=== PATIENT | female | born 1955 | race Caucasian/White ===

== ENCOUNTER → 2018-05-02 10:09 | Outpatient (CLI) | payer MEDICARE, SELFPAY ==
--- NOTE | 2018-05-02 10:33 | MRI_ITS ---
STUDY: MRI BRAIN WITH AND WITHOUT CONTRAST REASON FOR EXAM: Female, 63 years old. Dizziness, headaches and blacked out 4 weeks ago. TECHNIQUE: Standardized multiplanar fat and water weighted pulse sequences were obtained. 6 ml of Gadavist contrast material was administered intravenously for the contrast portion of the examination. COMPARISON: CTA head 06/08/2010. FINDINGS: No restricted diffusion to suspect acute or subacute ischemic infarct. Prominent converging intramedullary veins in the left cerebellar hemisphere is developmental venous anomaly. They ultimately drain into the left superior cerebellar vein. Normal size of the ventricles and extra-axial spaces for the patient's age. Additional subcortical white matter T2 FLAIR hyperintensity foci in the left subinsular white matter and above the left lentiform nucleus. They are nonspecific and are presumably secondary to microvascular disease. Normal bilateral basal ganglia. Normal thalami. There is no extra-axial fluid accumulation. Normal flow voids within the major intracranial circulation suggesting patency by spin echo criteria. Normal venous enhancement. There is no enhancing intra-axial or extra-axial abnormality. Normal sella turcica, pituitary gland, infundibular stalk, optic chiasm and hypothalamus. Normal tectal plate and pineal gland. Normal midbrain, melony and medulla. Normal cerebellum. Normal basal cisterns. Normal bilateral temporal bones. Normal bilateral internal auditory canals. No demonstrated orbital abnormality, within the constraints of a routine brain study. Normal visualized paranasal sinuses. Normal calvarium and skull base. Normal visualized soft tissue structures. Normal visualized upper cervical spine. MRI/Brain W/WO Contrast IMPRESSION: 1. 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 2. Slight increase in number of nonspecific white matter T2 FLAIR hyperintensity foci in the left subinsular white matter and above the left lentiform nucleus. They are presumably secondary to microvascular disease. 3. No MRI evidence of acute or subacute ischemic infarct or acute intracranial abnormality. Electronically Signed: Brayden Negron MD at 14:57 EDT , Service support ,
[2018-05-02 11:16] LABS: CREATININE FINGERSTICK 0.6 mg/dL (0.55-1.02); EGFR FINGERSTICK > 60.0000 mL/min (>60)
== END ==
DX: R26.89 Other abnormalities of gait and mobility (principal)
CPT/HCPCS: 70553; A9585

== ENCOUNTER 2018-05-03 14:21 | Emergency (ER) | payer MEDICARE, SELFPAY ==
[2018-05-03 14:22] VITALS: BP 141/75; PULSE 79; RESP 17; TEMP 37.2; O2SAT 98; BMI 22.6
[2018-05-03 14:30] VITALS: BP 140/75; PULSE 80; RESP 18; O2SAT 97; O2SAT 98
--- NOTE | 2018-05-03 14:43 | EKG12_ITS ---
Test Reason : SOB Blood Pressure : / mmHG Vent. Rate : 070 BPM Atrial Rate : 070 BPM P-R Int : 148 ms QRS Dur : 090 ms QT Int : 404 ms P-R-T Axes : 083 060 060 degrees QTc Int : 436 ms Normal sinus rhythm Septal OK, age undetermined, cannot be excluded Confirmed by SONY THORPE, SAM ([id number]), supervising film or videotape editor TYESHA AVALOS ([id number]) on 05/07/2018 2:47:29 PM Referred By: NEAL Confirmed By:SAM CARDOZA MD
--- NOTE | 2018-05-03 14:44 | RAD_ITS ---
STUDY: X-RAY CHEST REASON FOR EXAM: Female, 63 years old. 3 week history of shortness of breath and generalized illness. TECHNIQUE: AP and lateral views of the chest. COMPARISON: Comparison is made with prior study dated June 08, 2010. FINDINGS: Hyperinflation. Increased bronchovascular markings in the upper lobes suggestive of emphysematous changes. There is no demonstrated pleural abnormality. Normal size heart. Normal mediastinum and linnette. Normal visualized pulmonary arteries. Normal visualized aortic arch and descending thoracic aorta. There is demineralization of the osseous structures. Normal visualized ribs, clavicles, and shoulders. There is no demonstrated abnormality of the visualized soft tissue structures of the upper abdomen. RAD/Chest PA and Lateral IMPRESSION: Hyperinflation. No acute abnormality is seen. Electronically Signed: August Gentile MD at 15:43 EDT Tel [phone], Service support ,
--- NOTE | 2018-05-03 14:48 | ED.VISSUMM ---
- ER Visit Summary Date of Service: 05/03/18 Chief Complaint: Shortness of breath History of Present Illness: The patient is a 63 F history of prior stroke. Patient is a long-term smoker. States she has had a chronic cough for 3 weeks. Of greenish sputum. Chest hurts with coughing. She denies any history of DVT or PE. She denies any calf pain or swelling. She denies any bang hemoptysis. She has had a subjective fever cough and congestion. She says she coughs so much at times she will throw up afterwards. She denies any melena. Physical Examination: Older female vital signs are stable. She is afebrile. She does not look septic or toxic. Her pulse ox is 90% on room air no hypoxia. H EENT exam unremarkable. Posterior pharynx moist and pink. No erythema or exudate. No stridor or drooling. Neck nontender. No lymphadenopathy. No JVD. Lungs coarse breath sounds. Dry hacking cough. Prolonged expiratory phase. A few scattered wheezes. No rales nor rhonchi. Heart regular rhythm rate about 80 no murmur. Abdomen soft nontender. She is moving all 4 extremities. The neurovascular intact. Calves are nontender without edema or cords. Neurologically she is awake and alert with no focal motor deficits. Back nontender. Test Results: Chest x-ray shows chronic changes no acute process. Normal cardiac silhouette and mediastinum. Read by myself and the radiologist. EKG sinus rhythm a rate of 70 no CBC normal white count of 9. Hemoglobin 15. Electrolytes normal. Gap is 6. Troponin normal. Emergency Department Course and Treatment: Older female with chronic cough and shortness of breath. She will receive aerosols and IV Solu-Medrol. Patient is doing somewhat better after the aerosols and Solu-Medrol. I think this is underlying respiratory infection with more than likely new onset COPD. Patient is a long-term smoker. Has never been diagnosed with any underlying lung disease. Treatment Plan: 40 mg of prednisone for the next 7 days. Proventil inhaler. Follow-up with Dr. Augustine or Dr. Rolon of pulmonology. Disposition: Discharge Impression: Acute dyspnea secondary to bronchitis and bronchospasm Tobacco abuse with suspected underlying COPD This note was generated with [employer] software. It may contain incorrect words, spelling, and punctuation that were not noted in review of the chart prior to signing ED Disposition - Plan for ED Patient: Chief Complaint: Shortness of Breath Referrals: Angel Perez MD [Primary Care Provider] -
[2018-05-03] MEDS: Ipratropium/Albuterol Sulfate 3 ML AMPUL.NEB INHALATION (15:02)
[2018-05-03] MEDS: Albuterol 2.5 MG/3 ML VIAL.NEB. INHALATION (15:02)
[2018-05-03 15:10] VITALS: PULSE 92; RESP 26
[2018-05-03] MEDS: MethylPREDNISolone 125 MG/2 ML Vial IV (15:18)
[2018-05-03 15:29] LABS: Absolute Lymphocyte Count 3.13 X10^3/ul (0.83-4.51); Absolute Neutrophil Count 5.1 X10^3/uL (2.0-7.7); Basophil# 0.02 X10^3/uL; Basophil% 0.2 % (0-1); Eosinophil# 0.09 X10^3/uL; Lymphocyte # 3.13 X10^3/ul (4.0); Lymphocyte % 34.9 % (19-41); Mean Corp Hgb Conc 34.1 g/gl (32-36); Mean Corpuscular Hgb 30.3 pg (27.0-32.0); Mean Corpuscular Volume 88.9 fL (81-99); Mean Platelet Vol. 9.2 fl (6.2-12.0); Monocyte# 0.64 X10^3/uL; Monocyte% 7.1 % (0-10); Neutrophil # 5.06 X10^3/uL (2.7-7.7); Neutrophil % 56.5 % (47-70); Platelet Count 237 K/mm3 (150-450); RBC Distribution Width CV 12.3 % (11.6-14.6); RBC Distribution Width SD 39.2 fl (35.1-43.9); Red Blood Count 4.95 M/mm3 (4.2-5.4)
[2018-05-03 15:37] LABS: POSITIVE COUNT NO; POSITIVE DIFFERENTIAL NO; POSITIVE MORPHOLOGY NO
[2018-05-03 15:50] LABS: Anion Gap 6 (5-15); BUN 11 mg/dL (7-18); BUN/Creat Ratio 11.9 RATIO (10-20); Calcium,Total 9.2 mg/dL (8.5-10.1); Chloride 105 mmol/L (98-107); Creatinine, Serum 0.92 mg/dL (0.55-1.02); EST Glomerular Filtration Rate 65 mL/min (>60); Est Glom Filt Rate - Afr Amer 78 mL/min (>60); Estimated Creatinine Clearance 52.64 ml/min; Glucose 89 mg/dL (74-106); Potassium 3.9 mmol/L (3.5-5.1); Sodium Level 138 mmol/L (136-145)
--- NOTE | 2018-05-03 15:58 | ED.DEP ---
ED Disposition - Plan for ED Patient: Disposition: Home or Assisted Living Chief Complaint: Shortness of Breath Instructions: ED Upper Resp Infec Abx Tx, ED COPD Flare Prescriptions: Albuterol Sulfate [Proventil Hfa] 6.7 gm IH Q2H PRN PRN 7 Days #1 hfa.[email or web address] PRN Reason: Bronchospasm Azithromycin [Zithromax Z-Maico] 250 mg PO UD #1 box Prednisone [Deltasone] 40 mg PO DAILY 7 Days #7 tab Referrals: Angel Perez MD [Primary Care Provider] - As Needed Aguila Augustine MD [STAFF PHYSICIAN] - As soon as possible Additional Instructions: 1-2 puffs on your inhaler every 2-4 hours as needed for wheezing. Prednisone 40 mg a day till gone. Zithromax Z-Maico for antibiotic. Call and follow-up with a resistance brazer. Return to the ER if you are feeling worse. Your blood work, EKG and chest x-ray today were unremarkable. The chest x-ray shows chronic changes from smoking but no pneumonia. Her blood counts were normal.
--- NOTE | 2018-05-03 16:02 | DCINST.ED_ITS ---
ED Disposition - Plan for ED Patient: Disposition: Home or Assisted Living Chief Complaint: Shortness of Breath Instructions: ED Upper Resp Infec Abx Tx, ED COPD Flare Prescriptions: Albuterol Sulfate [Proventil Hfa] 6.7 gm IH Q2H PRN PRN 7 Days #1 hfa.[email or web address] PRN Reason: Bronchospasm Azithromycin [Zithromax Z-Maico] 250 mg PO UD #1 box Prednisone [Deltasone] 40 mg PO DAILY 7 Days #7 tab Referrals: Angel Perez MD [Primary Care Provider] - As Needed Aguila Augustine MD [STAFF PHYSICIAN] - As soon as possible Additional Instructions: 1-2 puffs on your inhaler every 2-4 hours as needed for wheezing. Prednisone 40 mg a day till gone. Zithromax Z-Maico for antibiotic. Call and follow-up with a service parts driver. Return to the ER if you are feeling worse. Your blood work, EKG and chest x-ray today were unremarkable. The chest x-ray shows chronic changes from smoking but no pneumonia. Her blood counts were normal.
[2018-05-03 16:19] VITALS: BP 135/80; PULSE 85; RESP 14; O2SAT 94
--- NOTE | 2018-05-04 13:01 | CM.ED ---
ED CALLBACK: Follow-up call placed to patient. Patient's spouse answered the phone and states the patient was taking a nap at this time. He states she had to use her inhaler last night but hasn't had to do so today. He states that she is taking her antibiotic and seems better today. The patient has scheduled a f/u appt with Dr. Rolon's office for Jun.08. She has not made a f/u appt with Dr. Perez. I encouraged this to be done, especially if she feels her symptoms are not resolving. Patient's spouse is agreeable and denies any further needs or questions at this time.
== END 2018-05-03 16:23 | disposition home or self-care (01) ==
PROVIDERS: Emergency Provider Emergency Medicine
DX: J44.1 Chronic obstructive pulmonary disease with (acute) exacerbation (principal); J20.9 Acute bronchitis, unspecified; J44.0 Chronic obstructive pulmonary disease with (acute) lower respiratory infection; F17.200 Nicotine dependence, unspecified, uncomplicated; Z86.73 Personal history of transient ischemic attack (TIA), and cerebral infarction without residual deficits
CPT/HCPCS: 71046; 80048; 84484; 85025; 93005; 94640; 96374; 99284; A4216

== ENCOUNTER 2018-05-12 00:19 | Observation (INO) | payer MEDICARE, SELFPAY ==
[2018-05-12] VITALS (13 sets, daily range): BP systolic 122–150; BP diastolic 65–84; PULSE 77–102; RESP 16–22; TEMP 36.1–36.9; O2SAT 93–98; BMI 22.9; BMI 23.8
--- NOTE | 2018-05-12 00:25 | ED.RN ---
CALLED FOR EKG PER RN REQUEST, PULLED OLD EKGS FOR
--- NOTE | 2018-05-12 00:29 | ED.RN ---
DR. MORROW AT BEDSIDE. PT REFUSING TO BE SEEN AND VITALS UNABLE TO BE OBTAINED. PT REPEATEDLY SAYING MIKE TAKE ME HOME. ALERT AND ORIENTED X1.
--- NOTE | 2018-05-12 00:32 | EKG12_ITS ---
Test Reason : Blood Pressure : / mmHG Vent. Rate : 099 BPM Atrial Rate : 099 BPM P-R Int : 114 ms QRS Dur : 076 ms QT Int : 360 ms P-R-T Axes : 096 063 044 degrees QTc Int : 462 ms Normal sinus rhythm Septal infarct , age undetermined Abnormal ECG Confirmed by JOSR THORPE, STACY ([id number]), offline editor TYESHA AVALOS ([id number]) on 05/14/2018 2:58:03 PM Referred By: CRISTHIAN Confirmed By:STACY OVALLES MD
--- NOTE | 2018-05-12 00:32 | CT_ITS ---
STUDY: CT BRAIN WITHOUT CONTRAST REASON FOR EXAM: Female, 63 years old. Altered mental status RADIATION DOSAGE (If Supplied By Facility): CTDIvol = ( 44.99 ) mGy, DLP = ( 796.11 ) mGycm TECHNIQUE: Transaxial CT imaging of the brain was performed without administration of intravenous contrast material. Individualized dose optimization techniques were used for this CT. COMPARISON: June 08, 2010 FINDINGS: There is no scalp hematoma and no calvarial fractures. Physiologic calcifications in both lentiform nuclei and in the left cerebellar lobe-probably within the dentate nucleus. These were present in the prior examination. There is no acute hemorrhage or acute infarction and no intra or extra-axial tumor mass. The ventricles, basal cisterns and cortical sulci are normal with no midline shift. The orbits, paranasal sinuses and mastoid air cells are normal CT/Brain/Head without Contrast IMPRESSION: No acute findings in the brain. Electronically Signed: Horacio Ryan MD at 1:53 EDT Tel , Service support ,
[2018-05-12] MEDS: LORazepam 2 MG/ML Syringe 1 MG IV ×2 (00:39→00:47)
[2018-05-12] MEDS: 0.9% Normal Saline 1,000 ML 1000 ML IV (00:40)
[2018-05-12 00:45] LABS: Absolute Lymphocyte Count 5.24 X10^3/ul (0.83-4.51); Absolute Neutrophil Count 3.8 X10^3/uL (2.0-7.7); Basophil# 0.05 X10^3/uL; Basophil% 0.5 % (0-1); Eosinophil# 0.24 X10^3/uL; Eosinophils% 2.3 % (0-5); Hemoglobin 15.1 g/dl (12.0-15.0); Lymphocyte # 5.24 X10^3/ul (4.0); Lymphocyte % 50.9 % (19-41); Mean Corp Hgb Conc 33.6 g/gl (32-36); Mean Corpuscular Hgb 30.6 pg (27.0-32.0); Mean Corpuscular Volume 91.1 fL (81-99); Mean Platelet Vol. 9.1 fl (6.2-12.0); Monocyte# 0.81 X10^3/uL; Monocyte% 7.9 % (0-10); Neutrophil # 3.76 X10^3/uL (2.7-7.7); Neutrophil % 36.6 % (47-70); Platelet Count 244 K/mm3 (150-450); RBC Distribution Width CV 13.1 % (11.6-14.6); RBC Distribution Width SD 43.2 fl (35.1-43.9); Red Blood Count 4.94 M/mm3 (4.2-5.4); White Blood Count 10.3 K/mm3 (4.4-11.0)
--- NOTE | 2018-05-12 00:45 | RAD_ITS ---
STUDY: X-RAY CHEST REASON FOR EXAM: Female, 63 years old. Chest pain TECHNIQUE: 1 view COMPARISON: May 03, 2018 FINDINGS: The lungs are clear and expanded. There is no demonstrated pleural abnormality. Normal size heart. Normal mediastinum and linnette. Normal visualized pulmonary arteries. Normal visualized aortic arch and descending thoracic aorta. Normal visualized thoracic spine. Normal visualized ribs, clavicles, and shoulders. There is no demonstrated abnormality of the visualized soft tissue structures of the upper abdomen. RAD/Chest 1 View (Portable) IMPRESSION: Normal x-ray examination of the chest. No acute findings in the lungs Electronically Signed: Horacio Ryan MD at 1:45 EDT Tel , Service support ,
[2018-05-12 00:46] LABS: Differential Indicated SCAN CRITERIA MET; POSITIVE COUNT NO; POSITIVE DIFFERENTIAL YES; POSITIVE MORPHOLOGY YES
[2018-05-12 00:51] LABS: Bedside Glucose 100 mg/dL (70-110)
[2018-05-12 00:53] LABS: International Normalized Ratio 0.9; Prothrombin Time (Protime)PT. 11.8 SECONDS (11.7-14.9)
[2018-05-12 00:54] LABS: Partial Thromboplast Time 22.8 Seconds (24.1-36.2)
[2018-05-12 01:10] LABS: AST(SGOT) 18 U/L (15-37); Alanine Aminotransfer ALT/SGPT 32 U/L (13-56); Albumin, Serum 3.7 g/dL (3.2-5.0); Alkaline Phosphatase 119 U/L (45-117); Bilirubin, Direct 0.07 mg/dL (0.00-0.30); Globulin 3.2 g/dL (2.2-4.2); Protein, Total 6.9 g/dL (6.4-8.2)
[2018-05-12 01:12] LABS: Anion Gap 11 (5-15); BUN 9 mg/dL (7-18); BUN/Creat Ratio 14.1 RATIO (10-20); Calcium,Total 7.8 mg/dL (8.5-10.1); Chloride 109 mmol/L (98-107); Creatinine, Serum 0.64 mg/dL (0.55-1.02); EST Glomerular Filtration Rate 99 mL/min (>60); Est Glom Filt Rate - Afr Amer 120 mL/min (>60); Estimated Creatinine Clearance 78.86 ml/min; Glucose 100 mg/dL (74-106); Lipase 1666 U/L (73-393); Potassium 3.4 mmol/L (3.5-5.1); Sodium Level 146 mmol/L (136-145)
[2018-05-12 01:31] LABS: Platelet Estimate ADEQUATE (ADEQ)
[2018-05-12 01:32] LABS: Anisocytosis RARE; Macrocytosis RARE
[2018-05-12 01:55] LABS: Bacteria 0 SEEN /hpf (None Seen); Mucous, Urine 0 SEEN /hpf (<or=2+); White Blood Cells 0 SEEN /hpf (0-5)
[2018-05-12 01:57] LABS: Color, Urine Yellow (Yellow); Glucose, Dipstick Normal (Normal); Ketone-Dipstick Negative (Negative); Leukocyte Esterase-Dipstick 25 /ul (Negative); Nitrite-Dipstick Negative (Negative); Occult Blood-Urine 50 /ul (Negative); Protein-Dipstick Negative (Negative); Specific Gravity, Urine 1.015 (1.002-1.030); Urine Bilirubin Dipstick Negative (Negative); Urine Clarity Clear (Clear); Urine Urobilinogen Normal (Normal)
--- NOTE | 2018-05-12 01:59 | HP.PCM_ITS ---
Problem List (1) Acute encephalopathy Status: Acute (2) Alcohol dependence Status: Acute (3) Pancreatitis, acute Status: Acute History of Present Illness Date of Admission: 05/12/18 Chief Complaint: confusion The patient is a 63 year old F with a significant history of alcohol dependence who was brought to the emergency department because of confusion x 1 day. At the time of my evaluation patient has recently received Ativan and fentanyl and was sedated; unable to provide history. History was taken from emergency department doctor and patient . On the day of admission patient went to a [place] at a formerly [facility] patient called her that she could not find her car keys. The patient also reported that patient was having slurred speech whiles she talked on the phone. Her with the help of police found her in her car slumped over. After patient was found, patient reportedly told her that she was having chest pain. Patient was noted to be vomiting. Whiles in the car driving away from the [facility] patient was in a position. At emergency department patient was found to have severely elevated lipase; and elevated alcohol level. Reportedly her did not know that patient had drank alcohol. Her reports previous episodes of alcoholism and at one time patient was found slumped over. However her reported that he did not know the patient had resumed drinking. Acute encephalopathy likely secondary to alcoholism. Clinical monitoring CT head unremarkable Ethanol level 254 Urine drug screen unremarkable. Management as below Alcoholic dependence Will put patient on [facility] protocol for possible withdrawal. Thiamine multivitamins and folic acid ordered. Ativan per protocol. Alcoholic pancreatitis With elevated lipase, elevated alkaline phosphatase; and elevated alcohol level likely patient has alcoholic pancreatitis. Lactated Ringer's at 150 mL's per hour. Because of mild hyponatremia on admission repeat BMP ordered at 10 AM. Consider making changes to IV fluids if her sodium level increases. Lipid profile ordered. Ultrasound of liver and gallbladder ordered. Abnormal urinalysis Noted to have elevated urine occult blood; but with some RBCs seen CPK ordered Hyperlipidemia Atorvastatin continued Tobacco abuse Consider nicotine patch when patient is awake. DVT prophylaxis Subcutaneous Lovenox Past Medical History Medical History: Medical History (Last Reviewed 05/12/18 @ 04:06 by Oswaldo Kelley MD) Depression F32.9 Hypercholesterolemia E78.00 Skin cancer C44.90 Stroke I63.9 Allergies codeine Allergy (Verified 05/12/18 00:31) Shortness of breath latex Adverse Reaction (Verified 05/12/18 00:31) Rash Home Medications: Ambulatory Orders Medication Instructions Recorded Aspirin [Adult Low Dose Aspirin EC] 81 mg PO DAILY 03/26/16 Sertraline HCl [Zoloft] 50 mg PO DAILY 03/26/16 Simvastatin [Zocor] 40 mg PO QHS 03/26/16 Surgical History: Surgical History (Last Reviewed 05/12/18 @ 04:06 by Oswaldo Kelley MD) History of appendectomy Z98.890, Z90.49 Lives: Spouse/ Significant Other Smoking Status: Current every day smoker Tobacco Use: Cigarettes Alcohol: Heavy Drugs: None - *Family History Maternal Family History: Family History (Last Reviewed 05/12/18 @ 04:07 by Oswaldo Kelley MD) Sister Breast cancer Paternal Family History: Family History (Last Reviewed 05/12/18 @ 04:07 by Oswaldo Kelley MD) Sister Breast cancer Review of Systems Unable to obtain accurate/complete ROS d/t: patient sedated, family unable to provide except as mentioned in hpi VTE Information - Inpt Only VTE Present on Admission: No VTE Mechan Device Prophylaxis: None VTE Pharm Prophylaxis ordered?: Yes Patient Problems: Active and Suspected Problems (Last Updated 08/18/17 @ 09:41 by Susan Hernandez) Acute encephalopathy (Acute) Alcohol dependence (Acute) Pancreatitis, acute (Acute) - Physical Exam General: - - Sedated HEENT: Atraumatic, PERRLA, Normocephalic Neck: No Nuchal Rigidity, Trachea Midline Lungs: Clear to auscultation, Normal air movement Cardiovascular: Regular rate, No murmurs Abdomen: Bowel Sounds Present, Soft, Non Tender Extremities: No edema, Capillary Refill Less than 3 Seconds Skin: No rashes Musculoskeletal: No Muscle Wasting Lymphatic: No Cervical, Supraclavicular, or Inguinal Adenopathy Neurological: - - Patient is sedated and unablefollow commands. Psych/Mental Status: - - sedated. Vital Signs Temp Pulse Resp BP Pulse Ox 96.9 F L 102 H 22 H 128/81 H 95 05/12/18 00:20 05/12/18 00:20 05/12/18 00:20 05/12/18 00:20 05/12/18 00:41 Oxygen Delivery Method Room Air Weight: 62.5 kg Body Mass Index (BMI) 22.9 Laboratory Tests Past 24 Hrs 05/12/18 05/12/18 05/12/18 00:30 00:30 00:30 WBC 10.3 RBC 4.94 Hgb 15.1 H Hct 45.0 MCV 91.1 MCH 30.6 MCHC 33.6 RDW 13.1 RDW Differential 43.2 Plt Count 244 MPV 9.1 Immature Gran % (Auto) 1.800 H Neut % (Auto) 36.6 L Lymph % (Auto) 50.9 H Hooker % (Auto) 7.9 Eos % (Auto) 2.3 Baso % (Auto) 0.5 Absolute Neuts (auto) 3.8 Absolute Lymphs (auto) 5.24 H Total Counted Not Reportable Differential Comment SEE COMMENT Diff Path Review May foll Platelet Estimate ADEQUATE Anisocytosis RARE Macrocytosis RARE PT INR APTT Sodium 146 H Potassium 3.4 L Chloride 109 H Carbon Dioxide 26.0 Anion Gap 11 BUN 9 Creatinine 0.64 Estim Creat Clear Calc 78.86 Est GFR (MDRD) Af Amer 120 Est GFR (MDRD) Non-Af 99 BUN/Creatinine Ratio 14.1 Glucose 100 Calcium 7.8 L Total Bilirubin 0.20 Direct Bilirubin 0.07 AST 18 ALT 32 Alkaline Phosphatase 119 H Troponin I < 0.015 Total Protein 6.9 Albumin 3.7 Globulin 3.2 Lipase 1666 H Urine Color Urine Clarity Urine pH Ur Specific [place] Urine Protein Urine Glucose (UA) Urine Ketones Urine Occult Blood Urine Nitrite Urine Bilirubin Urine Urobilinogen Ur Leukocyte Esterase Urine RBC Urine WBC Ur Squamous Epith Cells Urine Bacteria Urine Mucus Urine Opiates Screen Urine Methadone Screen Ur Barbiturates Screen Ur Phencyclidine Scrn Ur Amphetamines Screen U Methamphetamin-MDMA U Benzodiazepines Scrn Urine Cocaine Screen U Cannabinoids Screen Ur Drug Screen Comment Ethyl Alcohol 05/12/18 05/12/18 05/12/18 00:30 00:30 01:50 WBC RBC Hgb Hct MCV MCH MCHC RDW RDW Differential Plt Count MPV Immature Gran % (Auto) Neut % (Auto) Lymph % (Auto) Hooker % (Auto) Eos % (Auto) Baso % (Auto) Absolute Neuts (auto) Absolute Lymphs (auto) Total Counted Differential Comment Diff Path Review Platelet Estimate Anisocytosis Macrocytosis PT 11.8 INR 0.9 APTT 22.8 L Sodium Potassium Chloride Carbon Dioxide Anion Gap BUN Creatinine Estim Creat Clear Calc Est GFR (MDRD) Af Amer Est GFR (MDRD) Non-Af BUN/Creatinine Ratio Glucose Calcium Total Bilirubin Direct Bilirubin AST ALT Alkaline Phosphatase Troponin I Total Protein Albumin Globulin Lipase Urine Color Urine Clarity Urine pH Ur Specific [place] Urine Protein Urine Glucose (UA) Urine Ketones Urine Occult Blood Urine Nitrite Urine Bilirubin Urine Urobilinogen Ur Leukocyte Esterase Urine RBC Urine WBC Ur Squamous Epith Cells Urine Bacteria Urine Mucus Urine Opiates Screen Pending Urine Methadone Screen Pending Ur Barbiturates Screen Pending Ur Phencyclidine Scrn Pending Ur Amphetamines Screen Pending U Methamphetamin-MDMA Pending U Benzodiazepines Scrn Pending Urine Cocaine Screen Pending U Cannabinoids Screen Pending Ur Drug Screen Comment Ethyl Alcohol 254.0 05/12/18 01:50 WBC RBC Hgb Hct MCV MCH MCHC RDW RDW Differential Plt Count MPV Immature Gran % (Auto) Neut % (Auto) Lymph % (Auto) Hooker % (Auto) Eos % (Auto) Baso % (Auto) Absolute Neuts (auto) Absolute Lymphs (auto) Total Counted Differential Comment Diff Path Review Platelet Estimate Anisocytosis Macrocytosis PT INR APTT Sodium Potassium Chloride Carbon Dioxide Anion Gap BUN Creatinine Estim Creat Clear Calc Est GFR (MDRD) Af Amer Est GFR (MDRD) Non-Af BUN/Creatinine Ratio Glucose Calcium Total Bilirubin Direct Bilirubin AST ALT Alkaline Phosphatase Troponin I Total Protein Albumin Globulin Lipase Urine Color Yellow Urine Clarity Clear Urine pH 5.0 Ur Specific [place] 1.015 Urine Protein Negative Urine Glucose (UA) Normal Urine Ketones Negative Urine Occult Blood 50 H Urine Nitrite Negative Urine Bilirubin Negative Urine Urobilinogen Normal Ur Leukocyte Esterase 25 H Urine RBC Pending Urine WBC Pending Ur Squamous Epith Cells Pending Urine Bacteria Pending Urine Mucus Pending Urine Opiates Screen Urine Methadone Screen Ur Barbiturates Screen Ur Phencyclidine Scrn Ur Amphetamines Screen U Methamphetamin-MDMA U Benzodiazepines Scrn Urine Cocaine Screen U Cannabinoids Screen Ur Drug Screen Comment Ethyl Alcohol POC Glucose 05/12/18 00:44 POC Glucose 100 Assessment/Plan All Active Problems (Last Updated 08/18/17 @ 09:41 by Susan Hernandez) Acute encephalopathy (Acute) Alcohol dependence (Acute) Pancreatitis, acute (Acute) The patient is a 63 year old F with a significant history of alcohol dependence who was brought to the emergency department because of confusion; vomiting, chest pain; positioning and found to have elevated ethanol level; elevated lipase and elevated alkaline phosphatase concerning for alcoholic encephalopathy; alcohol dependence and alcoholic pancreatitis. Acute encephalopathy likely secondary to alcoholism. Clinical monitoring CT head unremarkable Ethanol level 254 Urine drug screen unremarkable. Management as below Alcoholic dependence Will put patient on [facility] protocol for possible withdrawal. Thiamine multivitamins and folic acid ordered. Ativan per [facility] protocol. Alcoholic pancreatitis With elevated lipase, elevated alkaline phosphatase; and elevated alcohol level likely patient has alcoholic pancreatitis. Lactated Ringer's at 150 mL's per hour. Because of mild hyponatremia on admission repeat BMP ordered at 10 AM. Consider making changes to IV fluids if her sodium level increases. Lipid profile ordered. Ultrasound of liver and gallbladder ordered. Abnormal urinalysis Noted to have elevated urine occult blood; but with some RBCs seen CPK ordered Hyperlipidemia Atorvastatin continued Tobacco abuse Consider nicotine patch when patient is awake. DVT prophylaxis Subcutaneous Lovenox Code Visit Inpatient E&M: 26032 Init Hosp L3
[2018-05-12] MEDS: fentaNYL 100 MCG/2 ML Ampul 50 MCG IV (02:06)
[2018-05-12 02:10] LABS: Amphetamine Urine VISTA NEGATIVE (<1000 ng/mL); Barbiturate Urine VISTA NEGATIVE (< 200 ng/mL); Benzodiazepine Urine VISTA NEGATIVE (< 200 ng/mL); Cocaine Urine VISTA NEGATIVE (< 300 ng/mL); Ecstacy Urine VISTA NEGATIVE (< 500 ng/mL); Methadone Urine VISTA NEGATIVE (< 300 ng/mL); PCP Urine VISTA NEGATIVE (< 25 ng/mL); THC Urine VISTA NEGATIVE (< 50 ng/mL); Vista UDS pH Range 5
--- NOTE | 2018-05-12 02:12 | ED.VISSUMM ---
- ER Visit Summary Date of Service: 05/12/18 Chief Complaint: Altered level of consciousness History of Present Illness: The patient is a 63 F who presents by a private vehicle driven by her . He says that she called him and was acting abnormally. He went to pick her up downtown and she was complaining of abdominal pain and she had some vomiting. He said she acted like this in the past when she had a stroke, but otherwise she has been doing well. The patient has no complaints and tells me that she wants to leave. She is agitated so history is limited. Physical Examination: Afebrile and vitals unremarkable except for heart rate of 102 and a respiratory rate of 22. Patient is grabbing her abdomen and appears uncomfortable. She is agitated, saying that she wants to leave. She is not answering questions or cooperating with the exam. Her heart is tachycardic but regular. Lungs are clear. Abdomen is soft and nontender. Skin normal in color without diaphoresis or pallor. Patient does have some material at her nostrils which appears to be consistent with emesis. Test Results: EKG sinus rhythm at a rate of 99. Hemoglobin 15.1. Sodium 146, potassium 3.4, chloride 109. Alkaline phosphatase 119 and lipase 1600. INR 0.9 and PTT 22.8. Urinalysis pending. Troponin normal. Alcohol 245. Tox screen pending. Chest x-ray was normal. CT head was normal. Emergency Department Course and Treatment: Patient was seen immediately. EKG was done and she was placed on a monitor. She did require some fluids and Ativan. She responded well to this and was cooperative with testing. Evaluation indicated that she was intoxicated, and I suspect this is why she is agitated. Her lipase is elevated, causing her emesis and abdominal pain. She was treated with fentanyl. Vitals have remained stable. Hospitalist was contacted for admission. Treatment Plan: As above Disposition: Admission Impression: 1. Alcohol intoxication 2. Pancreatitis This note was generated with [place] dictation software. It may contain incorrect words, spelling, and punctuation that were not noted in review of the chart prior to signing ED Disposition - Plan for ED Patient: Chief Complaint: Chest Pain Referrals: Angel Perez MD [Primary Care Provider] -
[2018-05-12 02:24] LABS: Red Blood Cells-Urine 0-5 SEEN /hpf (0-5); Squamous Epithelial Cells - UA 0-5 SEEN /hpf (5-10); Transitional Epithelial - Ur 0 SEEN /hpf (0-5)
--- NOTE | 2018-05-12 03:10 | US_ITS ---
STUDY: ABDOMINAL ULTRASOUND - RIGHT UPPER QUADRANT REASON FOR VISIT: Female, 63 years old. Pancreatitis. TECHNIQUE: Ultrasound evaluation of the right upper quadrant was performed with real-time and static naqvi-scale imaging. TECHNICAL QUALITY: Adequate. COMPARISON: CT abdomen and pelvis March 26, 2016. FINDINGS: Liver: The liver measures 14.9 cm. There is normal echogenicity of the liver. The bile ducts are within normal limits. There is hepatic color flow. The direction of portal flow is hepatopetal. There is no demonstrated mass lesion. Gallbladder: Normal distended gallbladder. The gallbladder wall measures 2.7 mm. There are hypodensities along the gallbladder wall at the fundus that suggest mural calcifications. There is a negative sonographic Cagle's sign. There is no pericholecystic fluid. There are no gallstones. Common Bile Duct (C.B.D.): The common bile duct measures 3.8 mm. Pancreas: Normal size of the head, body and tail of the pancreas. There is borderline increased echogenicity of the pancreas. There is no demonstrated pancreatic mass or cyst. Right Kidney: Normal size of the right kidney. The right kidney measures 10.1 x 5.2 x 4.5 cm. Normal renal cortex. The right cortex measures 1.2 cm. There is no demonstrated renal mass or cyst. There is no right hydronephrosis. US/Abdomen Limited IMPRESSION: 1. Generally unremarkable visualized pancreas. 2. Possible mural calcifications of the gallbladder wall at the fundus. No gallstones or signs of acute cholecystitis. 3. The visualized liver and right kidney were unremarkable. Electronically Signed: Bony Kirkpatrick MD at 12:41 EDT , Service support ,
--- NOTE | 2018-05-12 03:11 | EKG12_ITS ---
Test Reason : ADM EKG Blood Pressure : / mmHG Vent. Rate : 085 BPM Atrial Rate : 085 BPM P-R Int : 136 ms QRS Dur : 072 ms QT Int : 376 ms P-R-T Axes : 078 063 048 degrees QTc Int : 447 ms Normal sinus rhythm Septal infarct , age undetermined Abnormal ECG When compared with ECG of 03-MAY-2018 15:00, No significant change was found Confirmed by JOSR THORPE, STACY ([id number]), purchase request editor TYESHA AVALOS ([id number]) on 05/16/2018 3:39:22 PM Referred By: SHAHEED Confirmed By:STACY OVALLES MD
[2018-05-12] MEDS: Lactated Ringers 1,000 ML 150 ML IV ×2 (04:00→12:11)
[2018-05-12] MEDS: 0.9% NaCl Peripheral Flush Adult/Peds IV ×3 (06:33→14:34)
--- NOTE | 2018-05-12 07:28 | PCM.PN.HOSP ---
Patient Problems: Active and Suspected Problems (Last Reviewed 05/12/18 @ 04:06 by Oswaldo Kelley MD) Acute encephalopathy (Acute) Alcohol dependence (Acute) Pancreatitis, acute (Acute) Subjective: Patient since admission notes doing well, denies any current abdominal discomfort with review of current presentation for acute pancreatitis with notable heavy amount of alcohol consumption with history of being sober for approximately the last 6-8 months prior to this. Patient denies any chest discomfort as upon transition with EMS she had reported chest discomfort but suspect this was the epigastric discomfort. Reviewed cholesterol with patient and decision for increase of her statin, awaiting gallbladder ultrasound but likely alcohol consumption as etiology for current acute presentation to which she noted understanding. Patient denies fevers, chills, nausea, emesis, recurrent or worsened abdominal pain, chest pain or dyspnea. Objective: Physical Examination: General: awake, alert, oriented x 3 and cooperative, seated upright in bed in no apparent distress. Skin: normal color, turgor, no icterus, cyanosis. HEENT: AT/NC, EOMI, PERRLA, improved less dry MM. Lungs: Diminished BS BL, > bases, suspect underlying COPD, no current wheezing. Heart: Regular rate and rhythm; no gallop, rub audible. Abdomen: soft, NTTP including in the epigastric region and RUQ, ND, mildly hyperactive BS. Extremities: no cyanosis, clubbing, or edema. Neurological: patient awake, alert, oriented x 3; cognitive function intact; pupils equally reactive to light and accomodation; cranial nerves II-XII grossly normal, moving all 4 extremities, no focal deficits, strength mildly globally decreased. Psychiatric: affect appears mildly flat, fatigued, no acute evidence of depressive or anxiety feelings. Vitals/I&O's: Vital Signs Temp Pulse Resp BP Pulse Ox 97.2 F L 80 20 H 130/65 H 96 05/12/18 03:10 05/12/18 03:13 05/12/18 03:10 05/12/18 03:10 05/12/18 07:05 Oxygen Flow Rate (L/min) 1 Oxygen Delivery Method Nasal Cannula Weight: 138 lb 7.205 oz Body Mass Index (BMI) 23.8 Intake and Output for Last 24 Hours 05/10/18 05/11/18 05/12/18 23:59 23:59 23:59 Intake Total 572 / 572 Balance 572 / 572 Laboratory Results 05/12/18 00:30: Total Bilirubin 0.20, Direct Bilirubin 0.07, AST 18, ALT 32, Alkaline Phosphatase 119 H, Total Protein 6.9, Albumin 3.7, Globulin 3.2 05/12/18 00:30: WBC 10.3, RBC 4.94, Hgb 15.1 H, Hct 45.0, MCV 91.1, MCH 30.6, MCHC 33.6, RDW 13.1, RDW Differential 43.2, Plt Count 244, MPV 9.1, Immature Gran % (Auto) 1.800 H, Neut % (Auto) 36.6 L, Lymph % (Auto) 50.9 H, [place] % (Auto) 7.9, Eos % (Auto) 2.3, Baso % (Auto) 0.5, Absolute Neuts (auto) 3.8, Absolute Lymphs (auto) 5.24 H, Total Counted Not Reportable, Differential Comment SEE COMMENT, Diff Path Review May foll, Platelet Estimate ADEQUATE, Anisocytosis RARE, Macrocytosis RARE 05/12/18 00:30: Sodium 146 H, Potassium 3.4 L, Chloride 109 H, Carbon Dioxide 26.0, Anion Gap 11, BUN 9, Creatinine 0.64, Estim Creat Clear Calc 78.86, Est GFR (MDRD) Af Amer 120, Est GFR (MDRD) Non-Af 99, BUN/Creatinine Ratio 14.1, Glucose 100, Calcium 7.8 L, Troponin I < 0.015, Lipase 1666 H 05/12/18 00:30: Ethyl Alcohol 254.0 05/12/18 00:30: PT 11.8, INR 0.9, APTT 22.8 L 05/12/18 00:44: POC Glucose 100 05/12/18 01:50: Urine Opiates Screen NEGATIVE, Urine Methadone Screen NEGATIVE, Ur Barbiturates Screen NEGATIVE, Ur Phencyclidine Scrn NEGATIVE, Ur Amphetamines Screen NEGATIVE, U Methamphetamin-MDMA NEGATIVE, U Benzodiazepines Scrn NEGATIVE, Urine Cocaine Screen NEGATIVE, U Cannabinoids Screen NEGATIVE, Ur Drug Screen Comment 05/12/18 01:50: Urine Color Yellow, Urine Clarity Clear, Urine pH 5.0, Ur Specific [place] 1.015, Urine Protein Negative, Urine Glucose (UA) Normal, Urine Ketones Negative, Urine Occult Blood 50 H, Urine Nitrite Negative, Urine Bilirubin Negative, Urine Urobilinogen Normal, Ur Leukocyte Esterase 25 H, Urine RBC 0-5 SEEN, Urine WBC 0 SEEN, Ur Squamous Epith Cells 0-5 SEEN, Ur Transition Epith Cell 0 SEEN, Urine Bacteria 0 SEEN, Urine Mucus 0 SEEN 05/12/18 05:25: Triglycerides Pending, Cholesterol Pending, LDL Cholesterol Pending, VLDL Cholesterol Pending, HDL Cholesterol Pending 05/12/18 05:25: Sodium Pending, Potassium Pending, Chloride Pending, Carbon Dioxide Pending, Anion Gap Pending, BUN Pending, Creatinine Pending, Est GFR (MDRD) Af Amer Pending, Est GFR (MDRD) Non-Af Pending, BUN/Creatinine Ratio Pending, Glucose Pending, Calcium Pending 05/12/18 05:25: Total Creatine Kinase Pending Current Medications Aspirin (Ecotrin) 81 mg PO DAILYCM [facility]END[facility] Atorvastatin Calcium (Lipitor) 20 mg PO QHS [facility] Bisacodyl (Dulcolax) 5 mg PO DAILY PRN PRN PRN Reason: Constipation Enoxaparin Sodium (Lovenox) 40 mg SC DAILY@1000 [facility] Folic Acid (Folic Acid) 1 mg PO DAILY@0800 [facility] Stop: 05/14/18 08:01 Lactated Ringer's () 1,000 mls @ 150 mls/hr IV .Q6H40M [facility] Stop: 05/12/18 09:49 Last Admin: 05/12/18 04:00 Dose: 150 mls/hr Influenza Virus Vaccine Quadrival (Fluarix/Fluzone) 0.5 ml IM .ONCE ONE Stop: 05/12/18 10:01 Lorazepam (Ativan) 2 mg PO Q2H PRN PRN; Protocol PRN Reason: CIWA score > 8 but <15 Lorazepam (Ativan) 2 mg IV Q2H PRN PRN; Protocol PRN Reason: CIWA score > 8 but <15 Lorazepam (Ativan) 2 mg PO UD PRN; Protocol PRN Reason: CIWA score >/=15. Lorazepam (Ativan) 2 mg IV UD PRN; Protocol PRN Reason: CIWA score >/=15. Magnesium Hydroxide (Milk Of Magnesia) 30 ml PO DAILY PRN PRN Reason: Constipation Multivitamins/Minerals (Multivitamin With Minerals) 1 tablet PO DAILYCM [facility] Ondansetron HCl (Zofran) 4 mg IV Q8H PRN PRN PRN Reason: NAUSEA Sertraline HCl (Zoloft) 50 mg PO DAILY [facility] Sodium Chloride () 5 - 30 ml IV UD PRN PRN Reason: SALINE FLUSH Last Admin: 05/12/18 06:33 Dose: 10 ml Thiamine HCl (Vitamin B1) 100 mg PO BIDCM [facility] Stop: 05/14/18 17:01 Medical Necessity - Tobacco Use Smoking Status: Current every day smoker Tobacco Use: Cigarettes Assessment/Plan All Active Problems (Last Reviewed 05/12/18 @ 04:06 by Oswaldo Kelley MD) Acute encephalopathy (Acute) Alcohol dependence (Acute) Pancreatitis, acute (Acute) The patient is a 63 y/o F w/ PMHx: HLD, Depression and Anxiety, Tobacco use, EtOH Abuse who presents to the [facility] ED on 05/12/18 with history of confusion, noted to [place], noted slurred speech, eventually found slumped over in her car. (1) Acute pancreatitis w/ abdominal pain: Admission CBC not marked appearing, CMP w/ Na 146, K 3.4, Alk phos 119, AST/ALT 18/32, Lipase 1666. Admitted to PCU for ? concurrent chest pain, maintain on IVFs, NPO, PPI, pain regimen, trend lipase, CMP. Repeat lipase 379. Will obtain RUQ US, FLP w/ TG 326, TChol 170, LDL 63, VLDL 65, HDL 42, will increase home statin. Currently EtOH consumption risk main etiology for pancreatitis. Given notable improvement in lipase, resolution of prior pain if US unremarkable will plan clears start and ADAT, possible discharge to home today. (2) EtOH Abuse: Patient prior EtOH Abuse history, sober x 6-8 months per report, heavy intake on evening prior to presentation. Will maintain on CIWA protocol, MVI, thiamine and folic acid. Mag and phos pending. UDS unremarkable per ED. EtOH level 254. (3) Hyperlipidemia: Increase statin regimen. AM FLP FLP w/ TG 326, TChol 170, LDL 63, VLDL 65, HDL 42. (4) Anxiety and Depression: Continue home sertraline regimen, very low dose at 50 mg daily, would benefit from increase to 100 mg daily and further evaluations. (5) Tobacco Abuse: Encouraged cessation, inpatient consultation per RT, NR if desired. (6) Suspected Chronic COPD: Notes usage of aerosols only PRN at home. Suspect underlying COPD. Will maintain on ATC duonebs, PRN albuterol, HOB, IS parameters. (7) DVT prophylaxis: SCD, Lovenox. Code Visit Procedures: Other Procedure - See Report - Admitted per night physician same day, Billing Code: [id number]
--- NOTE | 2018-05-12 07:37 | PN_ITS ---
Patient Problems: Active and Suspected Problems (Last Reviewed 05/12/18 @ 04:06 by Oswaldo Kelley MD) Acute encephalopathy (Acute) Alcohol dependence (Acute) Pancreatitis, acute (Acute) Subjective: Patient since admission notes doing well, denies any current abdominal discomfort with review of current presentation for acute pancreatitis with notable heavy amount of alcohol consumption with history of being sober for approximately the last 6-8 months prior to this. Patient denies any chest discomfort as upon transition with EMS she had reported chest discomfort but suspect this was the epigastric discomfort. Reviewed cholesterol with patient and decision for increase of her statin, awaiting gallbladder ultrasound but l ikely alcohol consumption as etiology for current acute presentation to which she noted understanding. Patient denies fevers, chills, nausea, emesis, recurrent or worsened abdominal pain, chest pain or dyspnea. Objective: Physical Examination: General: awake, alert, oriented x 3 and cooperative, seated upright in bed in no apparent distress. Skin: normal color, turgor, no icterus, cyanosis. HEENT: AT/NC, EOMI, PERRLA, improved less dry MM. Lungs: Diminished BS BL, > bases, suspect underlying COPD, no current wheezing. Heart: Regular rate and rhythm; no gallop, rub audible. Abdomen: soft, NTTP including in the epigastric region and RUQ, ND, mildly hyperactive BS. Extremities: no cyanosis, clubbing, or edema. Neurological: patient awake, alert, oriented x 3; cognitive function intact; pupils equally reactive to light and accomodation; cranial nerves II-XII grossly normal, moving all 4 extremities, no focal deficits, strength mildly globally decreased. Psychiatric: affect appears mildly flat, fatigued, no acute evidence of depressive or anxiety feelings. Vitals/I&O's: Vital Signs Temp Pulse Resp BP Pulse Ox 97.2 F L 80 20 H 130/65 H 96 05/12/18 03:10 05/12/18 03:13 05/12/18 03:10 05/12/18 03:10 05/12/18 07:05 Oxygen Flow Rate (L/min) 1 Oxygen Delivery Method Nasal Cannula Weight: 138 lb 7.205 oz Body Mass Index (BMI) 23.8 Intake and Output for Last 24 Hours 05/10/18 05/11/18 05/12/18 23:59 23:59 23:59 Intake Total 572 / 572 Balance 572 / 572 Laboratory Results 05/12/18 00:30: Total Bilirubin 0.20, Direct Bilirubin 0.07, AST 18, ALT 32, Alkaline Phosphatase 119 H, Total Protein 6.9, Albumin 3.7, Globulin 3.2 05/12/18 00:30: WBC 10.3, RBC 4.94, Hgb 15.1 H, Hct 45.0, MCV 91.1, MCH 30.6, MCHC 33.6, RDW 13.1, RDW Differential 43.2, Plt Count 244, MPV 9.1, Immature Gran % (Auto) 1.800 H, Neut % (Auto) 36.6 L, Lymph % (Auto) 50.9 H, [place] % (Auto) 7.9, Eos % (Auto) 2.3, Baso % (Auto) 0.5, Absolute Neuts (auto) 3.8, Absolute Lymphs (auto) 5.24 H, Total Counted Not Reportable, Differential Comment SEE COMMENT, Diff Path Review May foll, Platelet Estimate ADEQUATE, Anisocytosis RARE, Macrocytosis RARE 05/12/18 00:30: Sodium 146 H, Potassium 3.4 L, Chloride 109 H, Carbon Dioxide 26.0, Anion Gap 11, BUN 9, Creatinine 0.64, Estim Creat Clear Calc 78.86, Est GFR (MDRD) Af Amer 120, Est GFR (MDRD) Non-Af 99, BUN/Creatinine Ratio 14.1, Glucose 100, Calcium 7.8 L, Troponin I < 0.015, Lipase 1666 H 05/12/18 00:30: Ethyl Alcohol 254.0 05/12/18 00:30: PT 11.8, INR 0.9, APTT 22.8 L 05/12/18 00:44: POC Glucose 100 05/12/18 01:50: Urine Opiates Screen NEGATIVE, Urine Methadone Screen NEGATIVE, Ur Barbiturates Screen NEGATIVE, Ur Phencyclidine Scrn NEGATIVE, Ur Amphetamines Screen NEGATIVE, U Methamphetamin-MDMA NEGATIVE, U Benzodiazepines Scrn NEGATIVE, Urine Cocaine Screen NEGATIVE, U Cannabinoids Screen NEGATIVE, Ur Drug Screen Comment 05/12/18 01:50: Urine Color Yellow, Urine Clarity Clear, Urine pH 5.0, Ur Specific [place] 1.015, Urine Protein Negative, Urine Glucose (UA) Normal, Urine Ketones Negative, Urine Occult Blood 50 H, Urine Nitrite Negative, Urine Bilirubin Negative, Urine Urobilinogen Normal, Ur Leukocyte Esterase 25 H, Urine RBC 0-5 SEEN, Urine WBC 0 SEEN, Ur Squamous Epith Cells 0-5 SEEN, Ur Transition Epith Cell 0 SEEN, Urine Bacteria 0 SEEN, Urine Mucus 0 SEEN 05/12/18 05:25: Triglycerides Pending, Cholesterol Pending, LDL Cholesterol Pending, VLDL Cholesterol Pending, HDL Cholesterol Pending 05/12/18 05:25: Sodium Pending, Potassium Pending, Chloride Pending, Carbon Dioxide Pending, Anion Gap Pending, BUN Pending, Creatinine Pending, Est GFR (MDRD) Af Amer Pending, Est GFR (MDRD) Non-Af Pending, BUN/Creatinine Ratio Pending, Glucose Pending, Calcium Pending 05/12/18 05:25: Total Creatine Kinase Pending Current Medications Aspirin (Ecotrin) 81 mg PO DAILYCM [facility] Atorvastatin Calcium (Lipitor) 20 mg PO QHS [facility] Bisacodyl (Dulcolax) 5 mg PO DAILY PRN PRN PRN Reason: Constipation Enoxaparin Sodium (Lovenox) 40 mg SC DAILY@1000 [facility] Folic Acid (Folic Acid) 1 mg PO DAILY@0800 [facility] Stop: 05/14/18 08:01 Lactated Ringer's () 1,000 mls @ 150 mls/hr IV .Q6H40M [facility] Stop: 05/12/18 09:49 Last Admin: 05/12/18 04:00 Dose: 150 mls/hr Influenza Virus Vaccine Quadrival (Fluarix/Fluzone) 0.5 ml IM .ONCE ONE Stop: 05/12/18 10:01 Lorazepam (Ativan) 2 mg PO Q2H PRN PRN; Protocol PRN Reason: CIWA score > 8 but <15 Lorazepam (Ativan) 2 mg IV Q2H PRN PRN; Protocol PRN Reason: CIWA score > 8 but <15 Lorazepam (Ativan) 2 mg PO UD PRN; Protocol PRN Reason: CIWA score >/=15. Lorazepam (Ativan) 2 mg IV UD PRN; Protocol PRN Reason: CIWA score >/=15. Magnesium Hydroxide (Milk Of Magnesia) 30 ml PO DAILY PRN PRN Reason: Constipation Multivitamins/Minerals (Multivitamin With Minerals) 1 tablet PO DAILYCM [facility] Ondansetron HCl (Zofran) 4 mg IV Q8H PRN PRN PRN Reason: NAUSEA Sertraline HCl (Zoloft) 50 mg PO DAILY [facility] Sodium Chloride () 5 - 30 ml IV UD PRN PRN Reason: SALINE FLUSH Last Admin: 05/12/18 06:33 Dose: 10 ml Thiamine HCl (Vitamin B1) 100 mg PO BIDCM [facility] Stop: 05/14/18 17:01 Medical Necessity - Tobacco Use Smoking Status: Current every day smoker Tobacco Use: Cigarettes Assessment/Plan All Active Problems (Last Reviewed 05/12/18 @ 04:06 by Oswaldo Kelley MD) Acute encephalopathy (Acute) Alcohol dependence (Acute) Pancreatitis, acute (Acute) The patient is a 63 y/o F w/ PMHx: HLD, Depression and Anxiety, Tobacco use, EtOH Abuse who presents to the [facility] ED on 05/12/18 with history of confusion, noted to [place], noted slurred speech, eventually found slumped over in her car. (1) Acute pancreatitis w/ abdominal pain: Admission CBC not marked appearing, CMP w/ Na 146, K 3.4, Alk phos 119, AST/ALT 18/32, Lipase 1666. Admitted to PCU for ? concurrent chest pain, maintain on IVFs, NPO, PPI, pain regimen, trend lipase, CMP. Repeat lipase 379. Will obtain RUQ US, FLP w/ TG 326, TChol 170, LDL 63, VLDL 65, HDL 42, will increase home statin. Currently EtOH consumption risk main etiology for pancreatitis. Given notable improvement in lipase, resolution of prior pain if US unremarkable will plan clears start and ADAT, possible discharge to home today. (2) EtOH Abuse: Patient prior EtOH Abuse history, sober x 6-8 months per report, heavy intake on evening prior to presentation. Will maintain on CIWA protocol, MVI, thiamine and folic acid. Mag and phos pending. UDS unremarkable per ED. EtOH level 254. (3) Hyperlipidemia: Increase statin regimen. AM FLP FLP w/ TG 326, TChol 170, LDL 63, VLDL 65, HDL 42. (4) Anxiety and Depression: Continue home sertraline regimen, very low dose at 50 mg daily, would benefit from increase to 100 mg daily and further evaluations. (5) Tobacco Abuse: Encouraged cessation, inpatient consultation per RT, NR if desired. (6) Suspected Chronic COPD: Notes usage of aerosols only PRN at home. Suspect underlying COPD. Will maintain on ATC duonebs, PRN albuterol, HOB, IS parameters. (7) DVT prophylaxis: SCD, Lovenox. Code Visit Procedures: Other Procedure - See Report - Admitted per night physician same day, Billing Code: [id number]
[2018-05-12 07:39] LABS: Cholesterol 170 mg/dL (200); High Density Lipoprotein 42 mg/dL; Triglycerides 326 mg/dL; Very Low Density Lipoprotein 65 mg/dL (5-40)
[2018-05-12 07:45] LABS: BUN 8 mg/dL (7-18); Creatinine, Serum 0.44 mg/dL (0.55-1.02); Estimated Creatinine Clearance 110.07 ml/min; Glucose 84 mg/dL (74-106)
[2018-05-12 07:46] LABS: Anion Gap 7 (5-15); BUN/Creat Ratio 18.3 RATIO (10-20); Calcium,Total 7.2 mg/dL (8.5-10.1); Chloride 113 mmol/L (98-107); EST Glomerular Filtration Rate 154 mL/min (>60); Est Glom Filt Rate - Afr Amer 186 mL/min (>60); Sodium Level 147 mmol/L (136-145)
[2018-05-12 07:50] LABS: CPK Total, Creatine Kinase 69 U/L (26-192)
[2018-05-12 08:18] LABS: Lipase 379 U/L (73-393)
--- NOTE | 2018-05-12 08:28 | NURSING ---
Being Transported Via Bed by Mercedes GARG down to Ultrasound at this time.
--- NOTE | 2018-05-12 08:50 | CASEMGMT ---
Social Work Note SW received referral for substance abuse. SW attempted to see pt. Pt currently off floor. SW will follow up with pt as time allows later today. Norma Aleman MANAGER CARD, ASH WORKER
[2018-05-12] MEDS: Sertraline 50 MG Tablet PO (09:48)
[2018-05-12] MEDS: Aspirin E.C. 81 MG Tablet PO (09:49)
[2018-05-12] MEDS: Thiamine Hydrochloride 100 MG Tablet PO ×2 (09:49→17:58)
[2018-05-12] MEDS: Enoxaparin 40 MG/0.4 ML Syringe SC (09:57)
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
--- NOTE | 2018-05-12 11:50 | CASEMGMT ---
Social Work Assessment: Referral Date: 05/12/2018 Date of Assessment: 05/12/2018 Reason for consult: Initial assessment, substance abuse Informant: Admitting Personal Status: SW met with pt to complete initial assessment. SW introduced self and role at [facility]. Pt is alert and orientated x3. Pt states that she lives with her in a two story home with three steps to enter the home. Pt states that she was previously independent with ADLs. Pt currently on oxygen but states that she didn't wear oxygen at home. DME include a walker but pt states she doesn't use it. Pt states that her PCP is Dr. Perez and her preferred pharmacy is [facility]. Pt states that her plan is to return home at discharge and denied the need for additional help at home at this time. Substance Abuse Hx: Pt denied. Per H+P pt has significant history of alcohol dependence and was positive for alcohol use. Pt denied wanting alcohol resources. Mental Health Hx: Pt denied. Plan: Pt wishes to return home at discharge. Pt denied additional needs or concerns at this time. Norma Aleman LEAD SYSTEMS DEVELOPER, BRICK GRADER
--- NOTE | 2018-05-12 12:44 | NURSING ---
This nurse informed pt that she is not NPO anymore but on Clear liquids and what that meant. Pt given menu. Looked at menu and this nurse asked pt if she needed help, No I'm not hungry right now. Set Menu down.
--- NOTE | 2018-05-12 12:54 | DCINST_ITS ---
- Discharge Diagnoses Current Active Problems: Current Active and Chronic Problems (Last Reviewed 05/12/18 @ 04:06 by Oswaldo Kelley MD) (1) Acute pancreatitis w/ abdominal pain secondary to EtOH Abuse, Intoxication (2) Acute Encephalopathy, Toxic, Metabolic (3) EtOH Abuse w/ Intoxication (3) Hyperlipidemia (4) Anxiety and Depression (5) Tobacco Abuse (6) Suspected Chronic COPD You will use the following diet at home:: Other - Advise continued full liquids and slow transition back to cardiac diet with low fat/low cholesterol. Your food should be the consistency of: Regular Your liquids should be the consistency of: Regular/Thin Discharge Activity: - - Encourage mild to moderate activity for the next 24-48 hours and advance once cleared per your primary care physician. Call your doctor if you observe: Fever of 101 or Higher, Inability to urinate, Inability to have a bowel movement, Shortness of breath, Dizziness, Fainting spells, Chest pain, Uncontrolled pain Instructions: Understanding Pancreatitis, Discharge Instructions for Acute Pancreatitis, Understanding Alcoholism, Alcoholism: Myths and Facts, The Impact of Alcoholism, Alcohol Addiction, Addiction: Getting Help, Addiction: Your Treatment Options, Why Do You Smoke?, Planning to Quit Smoking, Getting Support for Quitting Smoking, What is COPD?, Resources for Chronic Lung Disease Additional Instructions: During the admission your cholesterol was assessed and despite your current statin regimen upon presentation elevated therefore your statin medication was increased. Given your alcohol abuse history you were discharged with regimen of folic acid, thiamine and multivitamin. We suspect you have underlying COPD (chronic obstructive lung disease) secondary to your tobacco use history. You noted using as needed inhalers but you should be on a specific regimen with a scheduled inhaler and an as needed rescue inhaler which has been started for you upon discharge. We strongly advise tobacco cessation. Please practice safe sobriety. Allergies/Adverse Reactions: Allergies codeine Allergy (Verified 05/12/18 00:31) Shortness of breath latex Adverse Reaction (Verified 05/12/18 00:31) Rash Medications to take at Discharge Aspirin [Adult Low Dose Aspirin EC] 81 mg PO DAILY 03/26/16 Sertraline HCl [Zoloft] 50 mg PO DAILY 03/26/16 Simvastatin [Zocor] 40 mg PO QHS 03/26/16 Albuterol IH (ProAir) [Proair Hfa] 1 - 2 puff INHALATION Q4H PRN PRN #1 inhaler 05/12/18 Fluticasone/Salmeterol [Advair 250-50 Diskus] 1 each IH BID #1 blst.w.dev 05/12/18 Folic Acid 0.4 mg PO DAILY@0800 #30 tablet 05/12/18 Multivitamins,Ther W-Minerals [Multivitamin With Minerals] 1 tablet PO DAILYCM #30 tablet 05/12/18 Pantoprazole Sodium [Protonix] 20 mg PO BID #60 tablet 05/12/18 Simvastatin [Zocor] 80 mg PO QHS #30 tablet 05/12/18 Thiamine Hydrochloride [Vitamin B1] 100 mg PO BIDCM #60 tablet 05/12/18 The following prescriptions were given: Albuterol IH (ProAir) [Proair Hfa] 1 - 2 puff INHALATION Q4H PRN PRN #1 inhaler PRN Reason: dyspnea, wheezing Folic Acid 0.4 mg PO DAILY@0800 #30 tablet Multivitamins,Ther W-Minerals [Multivitamin With Minerals] 1 tablet PO DAILYCM #30 tablet Simvastatin [Zocor] 80 mg PO QHS #30 tablet Fluticasone/Salmeterol [Advair 250-50 Diskus] 1 each IH BID #1 blst.w.dev Pantoprazole Sodium [Protonix] 20 mg PO BID #60 tablet Thiamine Hydrochloride [Vitamin B1] 100 mg PO BIDCM #60 tablet Primary Care Physician: Angel Perez MD [Primary Care Provider] - Please follow up with your Primary Care Physician in: Follow-up in 3-5 days to review admission. Test Results: Test results from this visit will be discussed in further detail at your follow- up appointment, if applicable. Proposed Discharge Date: 05/12/18
--- NOTE | 2018-05-12 12:55 | PCM.DC.SUM ---
Discharge Date and Diagnosis - Problem List Patient Problems: Active and Suspected Problems (Last Reviewed 05/12/18 @ 04:06 by Oswaldo Kelley MD) Acute encephalopathy (Acute) Alcohol dependence (Acute) Pancreatitis, acute (Acute) Date of Admission: 05/12/18 Date of Discharge: 05/12/18 - Primary Discharge Diagnosis Active and Suspected Problems (Last Reviewed 05/12/18 @ 04:06 by Oswaldo eKlley MD) (1) Acute pancreatitis w/ abdominal pain secondary to EtOH Abuse, Intoxication (2) Acute Encephalopathy, Toxic, Metabolic (3) EtOH Abuse w/ Intoxication (3) Hyperlipidemia (4) Anxiety and Depression (5) Tobacco Abuse (6) Suspected Chronic COPD - Secondary Discharge Diagnosis (1) EtOH Abuse (2) Hyperlipidemia (3) Anxiety and Depression (4) Tobacco Abuse (5) Suspected Chronic COPD (6) Hx CVA Hospital Course and Treatment Operations: None Procedures: EKG Summary of Care Provided: The patient is a 63 y/o F w/ PMHx: HLD, Depression and Anxiety, Tobacco use, EtOH Abuse who presented to the [facility] ED on 05/12/18 with history of confusion, noted to have [place] her [place], noted slurred speech, eventually found slumped over in her car. Admission CBC not marked appearing, CMP w/ Na 146, K 3.4, Alk phos 119, AST/ALT 18/32, Lipase 1666. Admitted to PCU for ? concurrent chest pain, maintained on IVFs, NPO initially with diet advance once improved, IV PPI-->oral, PRN pain regimen, trended lipase w/ repeat lipase 379. RUQ US Generally unremarkable visualized pancreas, possible mural calcifications of the gallbladder wall at the fundus, no gallstones or signs of acute cholecystitis, visualized liver and right kidney unremarkable. FLP w/ TG 326, TChol 170, LDL 63, VLDL 65, HDL 42 with increase of home statin. EtOH consumption risk main etiology for pancreatitis. Given notable improvement in lipase, denial of pain, diet started and advanced. Encouraged strongly safe sobriety as patient prior to current presentation sober x 6-8 months. , resolution of prior pain if US unremarkable will plan clears start and ADAT, possible discharge to home today. Rx for MVI, thiamine and folic acid given. Mag and phos normal. UDS unremarkable per ED. EtOH level 254. Continue home sertraline regimen, very low dose at 50 mg daily, noted she may benefit from increase to at least 100 mg daily per PCP at follow-up with further change pending mood. Encouraged cessation, inpatient consultation per RT. Patient noted PRN inhaler usage, given presentation and examination suspect underlying chronic COPD. Maintained on ATC duonebs, PRN albuterol, HOB, IS parameters with rx advair and PRN albuterol inhalers upon discharge. Encouraged PCP follow-up within 3-5 days to review admission. Discharge Activity: - - Encourage mild to moderate activity for the next 24-48 hours and advance once cleared per your primary care physician. Call your doctor if you observe: Fever of 101 or Higher, Inability to urinate, Inability to have a bowel movement, Shortness of breath, Dizziness, Fainting spells, Chest pain, Uncontrolled pain Home Medications: Medications to take at Discharge Aspirin [Adult Low Dose Aspirin EC] 81 mg PO DAILY 03/26/16 Sertraline HCl [Zoloft] 50 mg PO DAILY 03/26/16 Simvastatin [Zocor] 40 mg PO QHS 03/26/16 Albuterol IH (ProAir) [Proair Hfa] 1 - 2 puff INHALATION Q4H PRN PRN #1 inhaler 05/12/18 Fluticasone/Salmeterol [Advair 250-50 Diskus] 1 each IH BID #1 blst.w.dev 05/12/18 Folic Acid 0.4 mg PO DAILY@0800 #30 tablet 05/12/18 Multivitamins,Ther W-Minerals [Multivitamin With Minerals] 1 tablet PO DAILYCM #30 tablet 05/12/18 Pantoprazole Sodium [Protonix] 20 mg PO BID #60 tablet 05/12/18 Simvastatin [Zocor] 80 mg PO QHS #30 tablet 05/12/18 Thiamine Hydrochloride [Vitamin B1] 100 mg PO BIDCM #60 tablet 05/12/18 Following Prescrptions Were Given to Patient: Albuterol IH (ProAir) [Proair Hfa] 1 - 2 puff INHALATION Q4H PRN PRN #1 inhaler PRN Reason: dyspnea, wheezing Folic Acid 0.4 mg PO DAILY@0800 #30 tablet Multivitamins,Ther W-Minerals [Multivitamin With Minerals] 1 tablet PO DAILYCM #30 tablet Simvastatin [Zocor] 80 mg PO QHS #30 tablet Fluticasone/Salmeterol [Advair 250-50 Diskus] 1 each IH BID #1 blst.w.dev Pantoprazole Sodium [Protonix] 20 mg PO BID #60 tablet Thiamine Hydrochloride [Vitamin B1] 100 mg PO BIDCM #60 tablet Primary Care Physician: Angel Perez MD [Primary Care Provider] - Please follow up with your Primary Care Physician in: Follow-up in 3-5 days to review admission. Patient Instructions: What is COPD?, Resources for Chronic Lung Disease, Understanding Pancreatitis, Understanding Alcoholism, Alcoholism: Myths and Facts, The Impact of Alcoholism, Alcohol Addiction, Addiction: Getting Help, Addiction: Your Treatment Options, Why Do You Smoke?, Planning to Quit Smoking, Getting Support for Quitting Smoking, Discharge Instructions for Acute Pancreatitis Disposition: Home Minutes spent on discharge:: 35 Patient Condition:: Fair Medical Necessity - Tobacco Use Smoking Status: Current every day smoker Tobacco Use: Cigarettes Meaningful Use Info Meaningful Use Diagnoses (Choose all that apply): None applicable Code Visit Inpatient E&M: 14884 Disch Hosp
[2018-05-12] MEDS: Ipratropium/Albuterol Sulfate 3 ML AMPUL.NEB INHALATION (13:26)
[2018-05-12] MEDS: Ondansetron 4 MG/2 ML Vial IV (14:34)
--- NOTE | 2018-05-14 11:17 | CM.ED ---
FOLLOW-UP CALL: Follow-up call placed to patient. No answer. Voicemail left with return contact information.
[2018-05-14 12:38] LABS: Pathologist Review Reviewed
== END 2018-05-12 18:58 | disposition home or self-care (01) ==
LOC: ED 02:21 → PCU 02:44
PROVIDERS: Admitting Provider Hospitalist; Emergency Provider Emergency Medicine; Visit Provider Family Medicine
DX: K85.20 Alcohol induced acute pancreatitis without necrosis or infection (principal); Z23 Encounter for immunization; F10.229 Alcohol dependence with intoxication, unspecified; Y90.8 Blood alcohol level of 240 mg/100 ml or more; G92 Toxic encephalopathy; E78.5 Hyperlipidemia, unspecified; F32.9 Major depressive disorder, single episode, unspecified; F41.9 Anxiety disorder, unspecified; Z79.899 Other long term (current) drug therapy; Z79.82 Long term (current) use of aspirin; Z86.73 Personal history of transient ischemic attack (TIA), and cerebral infarction without residual deficits; F17.210 Nicotine dependence, cigarettes, uncomplicated; E87.1 Hypo-osmolality and hyponatremia
CPT/HCPCS: 36415; 70450; 71045; 76705; 80048; 80061; 80076; 80307; 80320; 81001; 82550; 82962; 83690; 83735; 84100; 84484; 85025; 85610; 85730; 93005; 94640; 96361; 96365; 96367; 96372; 96375; 99218; 99283; 99406; G0008; J7030; J7120; P9612; 90686; A4216; G0378; G0480; J2405; J3490

== ENCOUNTER → 2018-06-22 08:38 | Outpatient (CLI) | payer MEDICARE, SELFPAY ==
[2018-06-22 09:17] VITALS: PULSE 72; PULSE 74; PULSE 86; PULSE 95; PULSE 97; PULSE 99; O2SAT 93; O2SAT 94; O2SAT 95; O2SAT 96; O2SAT 97
--- NOTE | 2018-06-22 13:50 | PCM.PSN.6M ---
PSN 6 Minute Walk Test - 6 Minute Walk Test 6 Minute Walk Test: 6 Minute Walk Test PSN:6-Minute Walk Test Start: 06/22/18 09:16 Freq: Status: Active Protocol: [id number] Document 06/22/18 09:17 JAMAR (Rec: 06/22/18 09:21 JAMAR [id number]) 6 Minute Walk Test Date Performed 06/22/18 Time Performed 09:00 Height 5 ft 4.5 in Weight: 61.235 kg Weight in Pounds 135.[address]: Dustin Rolon Assistive device used: None Pre-test Oxygen Delivery Method Room Air Pulse Ox (%) 95 Pulse Rate (60-100 beats/min) 74 Dyspnea Naveen Scale (0-10) 0 Exertion Naveen Scale (6-20) 6 1st minute Oxygen Delivery Method Room Air Pulse Ox (%) 93 Pulse Rate (60-100 beats/min) 86 2nd minute Oxygen Delivery Method Room Air Pulse Ox (%) 94 Pulse Rate (60-100 beats/min) 99 3rd minute Oxygen Delivery Method Room Air Pulse Ox (%) 94 Pulse Rate (60-100 beats/min) 99 4th minute Oxygen Delivery Method Room Air Pulse Ox (%) 96 Pulse Rate (60-100 beats/min) 95 5th minute Oxygen Delivery Method Room Air Pulse Ox (%) 97 Pulse Rate (60-100 beats/min) 97 6th minute Oxygen Delivery Method Room Air Pulse Ox (%) 95 Pulse Rate (60-100 beats/min) 97 Dyspnea Naveen Scale (0-10) 2 Exertion Naveen Scale (6-20) 12 Post-test Oxygen Delivery Method Room Air Pulse Ox (%) 97 Pulse Rate (60-100 beats/min) 72 Full Laps Walked 22 Partial Lap, Number of Tiles Walked 45 Total Distance Walked (ft) 1343 - Interpretation Interpretation: The patient was able to ambulate 1343 feet over the course of 6 minutes on room air with no assistive devices or breaks. These findings are consistent with a normal exercise oximetry. - Recommendations Recommendations: No supplemental oxygen is indicated at this time.
== END ==
PROVIDERS: Referring Provider Internal Medicine Critical Care Medicine; Visit Provider Internal Medicine Critical Care Medicine
DX: R06.02 Shortness of breath (principal); F17.210 Nicotine dependence, cigarettes, uncomplicated
CPT/HCPCS: 94618

== ENCOUNTER → 2018-06-26 07:59 | Outpatient (CLI) | payer MEDICARE, SELFPAY ==
[2018-06-08 09:56] VITALS: BMI 22.9
--- NOTE | 2018-06-26 08:01 | CT_ITS ---
STUDY: LOW DOSE CT LUNG CANCER SCREENING REASON FOR EXAM: Female, 63 years old. 40 pack-year smoker. RADIATION DOSAGE (If Supplied By Facility): CTDIvol = ( 44.99 ) mGy, DLP = ( 68.21 ) mGycm TECHNIQUE: No contrast was administered. Low dose technique was utilized (average mAS-38 and kVp 120). 1.25 mm axial source images with a slice interval of 1.25-mm were reconstructed in lung windows. 2.5 mm axial source images with a slice interval of 2.5-mm were reconstructed in lung windows. 5.0 mm axial source images with a slice interval of 5.0-mm were reconstructed in soft tissue windows. Nodule measured using lung windows on PACS and/or independent workstation with automated measurement of minimum and maximum diameter. Nodule measurement reported as average diameter rounded to the nearest whole number. Growth is defined as an increase ins size of greater than 1.5 mm. COMPARISON: Chest, May 12, 2018. NODULES: Total lung nodules (excluding granulomas): 0 Emphysema: Diffuse emphysematous changes of the lungs. Endobronchial lesion: Aorta: There is minimal atherosclerotic changes of the thoracic aorta without aneurysm. Coronary arteries: There are coronary artery calcifications. Heart: The heart is normal in size. Pulmonary artery: Normal Mediastinal nodes: There is nonspecific paratracheal and AP window lymphadenopathy. Other chest and abdominal findings: There are degenerative changes of the thoracic spine. CT/Low Dose CT Lung Screening IMPRESSION: Lung-RADS category 1 - Continue annual screening with LDCT in 12 months. IMPORTANT NOTES FOR USE: ACR Lung-RADS Version 1.0 Assessment Categories Release Date: December 02, 2013 Category: Coded 0-4 bases on nodule(s) with highest degree of suspicion. Negative screen is defined as categories 1 and 2; a positive screen is defined as categories 3 and 4. Category 3 and 4A nodules that are unchanged on interval CT should be coded as category 2, and individuals returned to screening in 12 months. Category 4X: Category 3 or 4 nodules with additional imaging findings that increase the suspicion of lung cancer, such as spiculation, GGN that doubles in size in 1 year, enlarged lymph notes, etc. Category Modifiers: S (significant finding unrelated to lung cancer) and C (prior history of treated lung cancer) may be added to the 0-4 Lung-RADS Electronically Signed: Dante Galeano DO at 21:37 EST Tel [phone], Service support ,
--- NOTE | 2018-06-26 11:14 | PFT ---
INTRODUCTION: The patient is a 63-year-old female that presents for pulmonary function studies secondary to a diagnosis of shortness of breath. Respiratory therapy reports good patient effort. Bronchodilators were used during testing. INTERPRETATION: Forced expiration spirometry demonstrates the presence of a moderate large airways obstructive ventilatory defect. There was no significant response to aerosolized bronchodilators. Spirograms are of good quality do not plateau indicating slow emptying of the lungs. Body plethysmography was performed and reveals an elevated RV to 126% of predicted. Diffusing capacity by single breath CO is within normal limits at 78% of predicted. IMPRESSION: These pulmonary function studies demonstrate the presence of an irreversible moderate large airways obstructive ventilatory defect with associated air trapping and preserved diffusing capacity.
== END ==
PROVIDERS: Referring Provider Internal Medicine Critical Care Medicine; Visit Provider Internal Medicine Critical Care Medicine
DX: R06.02 Shortness of breath (principal); F17.210 Nicotine dependence, cigarettes, uncomplicated; Z12.2 Encounter for screening for malignant neoplasm of respiratory organs
CPT/HCPCS: 94060; 94726; 94729; G0297

== ENCOUNTER → 2018-08-25 09:55 | Outpatient (CLI) | payer MEDICARE, SELFPAY ==
[2018-07-11 10:47] VITALS: BMI 22.6
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
--- OUTSIDE RECORDS SUMMARY | 2018-10-29 09:54 | XMS RPT_ITS ---
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 during sleep, weight loss, sleeping in chair, weight loss, weight gain, frequent colds, seasonal allergies, other, headache(s) or orthopnea EETM Ear Nose Throat Mouth: Positive hearing normal; negative hard of hearing, hoarseness, dry mouth in morning, change in vision, itchy eyes, eye pain, swallowing Difficulty, ear pain, nose bleed, headache(s), mouth pain, nasal congestion, nasal discharge, post nasal drip, sinus pain, sinus pressure, sore throat or other Cardio Cardiovascular: Negative chest pain, chest pain at rest, chest pain with activity, irregular heart rhythm, edema, shortness of breath when lying down, palpitations, murmur or other Resp Respiratory: Positive as per HPI, shortness of breath shortness of breath: Positive with activity, wheezing and cough cough: Positive productive color: Positive thick and white; negative pain with cough, chest congestion, chest tightness, pain on inspiration, inhalers, increase use of rescue inhalers, snoring, apnea or other Gastro Gastrointestional: Negative bloody stools, change in appetite, difficulty swallowing, reflux, hematemesis, melena stool, loose stool, constipation or other Genitourinary: Negative blood in urine, nocturia, pain with urination or other Musc Musculoskeletal: Negative body pain, back pain, neck pain or other Skin/Breast Skin/Breast: Negative dry skin, itching, rash, unusual bruising, breast lump or other Neuro Neurological: Negative restless legs, confusion, weakness or other Psych Psychocological: Negative abnormal sleep pattern, anxiety, thoughts of hurting self/others, hopelessness or other Lymph Lymphatic: Negative easy bleeding, easy bruising, swollen lymph nodes or other Exam Const Constitutional: Positive conversant, cooperative, in no acute respiratory distress, well developed, well nourished, good hygiene and smells of smoke Head Head: Positive normocephalic and atraumatic; negative cyanosis of lips/distal nose Eyes Eye: Positive clear conjunctiva; negative nystagmus or scleral abnormality Ears Ear: Positive hearing normal and external ears normal; negative hard of hearing Nose Nose: Positive external nose normal; negative epistaxis Mouth Mouth: Positive oral mucosae normal and posterior oropharynx is adequate; negative no lesions or post nasal drip Mallampati Score: II: Mallampati Score Neck Neck: Positive normal visual inspection and trachea midline; negative lymphadenopathy Chest Wall Chest: Positive symmetric chest movement Normal AP diameter. Resp lung sounds: Positive diminished and normal expiratory time; negative wheezes, rhonchi or rales Cardio Cardiac: Positive regular rate, regular rhythm, S1 normal and S2 normal; negative rub, gallop or murmur GI GI: Positive normal bowel sounds Soft without distention Genitourinary: Positive deferred Musc Musculoskeletal: Positive steady gait Skin Pulmonary Skin Exam: Positive intact; negative lesion, ulcers, dermal atrophy or rash Pulses Pulse: Yes Pedal pulses present: Extremities Extremities: No clubbing, No cyanosis, No edema Neuro Neurologic: Yes conversant, Yes no focal neuro deficits, Yes cooperative Lymph Lymphatic: No lymphadenopathy Psych Appearance: Positive grossly normal Mental Status: Positive mental status grossly normal Mood: Positive congruent mood Affect: Positive normal affect Pulmonary Procedure Smoking Cessation Education: Yes education provided, 3-10 minutes and needs reinforcement Coding Level of Care Code Off vis,new,level 4 Diagnoses SOB (shortness of breath) R06.02 Nicotine dependence, cigarettes, uncomplicated F17.210 Alcohol dependence F10.20 06/08/18 1054 <Electronically signed by Dustin Rolon DO> Date Dustin Rolon DO Cosigner Signature: Date (if applicable) CC: Angel Perez MD 12 LEAD ELECTROCARDIOGRAM Observed: 05/16/2018 Status: F Source: [place] 3:39 PM [facility] REPOSITORY [facility] Cardiovascular Services [address] [place] [id number] 12 Lead EKG 05/12/18 0321 MR#: [id number] Acct: [id number] Name: GRISELDA AVILA Rep #: [id number] : 1955 63 From: Chico Licona MD Attending Dr: Reyna Kelly Status: DIS YANG Ordering Dr: Oswaldo Kelley MD Date: 05/12/18 Location: [facility] Sex: F C Admitted: 05/12/18 Test Reason : ADM EKG Blood Pressure : / mmHG Vent. Rate : 085 BPM Atrial Rate : 085 BPM P-R Int : 136 ms QRS Dur : 072 ms QT Int : 376 ms P-R-T Axes : 078 063 048 degrees QTc Int : 447 ms Normal sinus rhythm Septal infarct , age undetermined Abnormal ECG When compared with ECG of 03-MAY-2018 15:00, No significant change was found Confirmed by MONAE THORPE, CHICO ([id number]), dictionary editor TYESHA AVALOS ([id number]) on 05/16/2018 3:39:22 PM Referred By: SHAHEED Confirmed By:CHICO LICONA MD 05/16/18 1539 Date Chico Licona MD CC: Reyna Kelly; Angel Perez MD; Oswaldo Kelley MD Signed 12 LEAD ELECTROCARDIOGRAM Observed: 05/14/2018 Status: F Source: [place] 2:58 PM [facility] REPOSITORY [facility] Cardiovascular Services [address] [place] [address] 12 Lead EKG 05/12/18 0026 MR#: [id number] Acct: [id number] Name: GRISELDA AVILA Rep #: [id number] : 1955 63 From: Chico Licona MD Attending Dr: Reyna Kelly Status: DIS YANG Ordering Dr: Jason Evangelista MD Date: 05/12/18 Location: [facility] Sex: F C Admitted: 05/12/18 Test Reason : Blood Pressure : / mmHG Vent. Rate : 099 BPM Atrial Rate : 099 BPM P-R Int : 114 ms QRS Dur : 076 ms QT Int : 360 ms P-R-T Axes : 096 063 044 degrees QTc Int : 462 ms Normal sinus rhythm Septal infarct , age undetermined Abnormal ECG Confirmed by CHICO LICONA MD ([id number]), dictionary editor TYESHA AVALOS ([id number]) on 05/14/2018 2:58:03 PM Referred By: CRISTHIAN Confirmed By:CHICO LICONA MD 05/14/18 1458 Date Chico Licona MD CC: Reyna Evangelista MD; Angel Perez MD Signed DISCHARGE SUMMARY Observed: 05/12/2018 Status: F Source: [place] 1:21 PM [facility] REPOSITORY [facility] Medical Records Department [address] [place] [address] Discharge Summary 05/12/18 1255 MR#: [id number] Acct: [id number] Name: GRISELDA AVILA Rep #: [id number] : 1955 63 From: Reyna Kelly PCP: Angel Perez MD Status: ADM IN Y Location: [place] [address] Discharge Date and Diagnosis - Problem List Patient Problems: Active and Suspected Problems (Last Reviewed 05/12/18 @ 04:06 by Oswaldo Kelley MD) Acute encephalopathy (Acute) Alcohol dependence (Acute) Pancreatitis, acute (Acute) Date of Admission: 05/12/18 Date of Discharge: 05/12/18 - Primary Discharge Diagnosis Active and Suspected Problems (Last Reviewed 05/12/18 @ 04:06 by Oswaldo Kelley MD) (1) Acute pancreatitis w/ abdominal pain secondary to EtOH Abuse, Intoxication (2) Acute Encephalopathy, Toxic, Metabolic (3) EtOH Abuse w/ Intoxication (3) Hyperlipidemia (4) Anxiety and Depression (5) Tobacco Abuse (6) Suspected Chronic COPD - Secondary Discharge Diagnosis (1) EtOH Abuse (2) Hyperlipidemia (3) Anxiety and Depression (4) Tobacco Abuse (5) Suspected Chronic COPD (6) Hx CVA Hospital Course and Treatment Operations: None Procedures: EKG Summary of Care Provided: The patient is a 63 y/o F w/ PMHx: HLD, Depression and Anxiety, Tobacco use, EtOH Abuse who presented to the [facility] ED on 05/12/18 with history of confusion, noted to have [place] her local [place], noted slurred speech, eventually found slumped over in her car. Admission CBC not marked appearing, CMP w/ Na 146, K 3.4, Alk phos 119, AST/ALT 18/32, Lipase 1666. Admitted to PCU for ? concurrent chest pain, maintained on IVFs, NPO initially with diet advance once improved, IV PPI-->oral, PRN pain regimen, trended lipase w/ repeat lipase 379. RUQ US Generally unremarkable visualized pancreas, possible mural calcifications of the gallbladder wall at the fundus, no gallstones or signs of acute cholecystitis, visualized liver and right kidney unremarkable. FLP w/ TG 326, TChol 170, LDL 63, VLDL 65, HDL 42 with increase of home statin. EtOH consumption risk main etiology for pancreatitis. Given notable improvement in lipase, denial of pain, diet started and advanced. Encouraged strongly safe sobriety as patient prior to current presentation sober x 6-8 months. , resolution of prior pain if US unremarkable will plan clears start and ADAT, possible discharge to home today. Rx for MVI, thiamine and folic acid given. Mag and phos normal. UDS unremarkable per ED. EtOH level 254. Continue home sertraline regimen, very low dose at 50 mg daily, noted she may benefit from increase to at least 100 mg daily per PCP at follow-up with further change pending mood. Encouraged cessation, inpatient consultation per RT. Patient noted PRN inhaler usage, given presentation and examination suspect underlying chronic COPD. Maintained on ATC duonebs, PRN albuterol, HOB, IS parameters with rx advair and PRN albuterol inhalers upon discharge. Encouraged PCP follow-up within 3-5 days to review admission. Discharge Activity: - - Encourage mild to moderate activity for the next 24-48 hours and advance once cleared per your primary care physician. Call your doctor if you observe: Fever of 101 or Higher, Inability to urinate, Inability to have a bowel movement, Shortness of breath, Dizziness, Fainting spells, Chest pain, Uncontrolled pain Home Medications: Medications to take at Discharge Aspirin [Adult Low Dose Aspirin EC] 81 mg PO DAILY 03/26/16 Sertraline HCl [Zoloft] 50 mg PO DAILY 03/26/16 Simvastatin [Zocor] 40 mg PO QHS 03/26/16 Albuterol IH (ProAir) [Proair Hfa] 1 - 2 puff INHALATION Q4H PRN PRN #1 inhaler 05/12/18 Fluticasone/Salmeterol [Advair 250-50 Diskus] 1 each IH BID #1 blst.w.dev 05/12/18 Folic Acid 0.4 mg PO DAILY@0800 #30 tablet 05/12/18 Multivitamins,Ther W-Minerals [Multivitamin With Minerals] 1 tablet PO DAILYCM #30 tablet 05/12/18 Pantoprazole Sodium [Protonix] 20 mg PO BID #60 tablet 05/12/18 Simvastatin [Zocor] 80 mg PO QHS #30 tablet 05/12/18 Thiamine Hydrochloride [Vitamin B1] 100 mg PO BIDCM #60 tablet 05/12/18 Following Prescrptions Were Given to Patient: Albuterol IH (ProAir) [Proair Hfa] 1 - 2 puff INHALATION Q4H PRN PRN #1 inhaler PRN Reason: dyspnea, wheezing Folic Acid 0.4 mg PO DAILY@0800 #30 tablet Multivitamins,Ther W-Minerals [Multivitamin With Minerals] 1 tablet PO DAILYCM #30 tablet Simvastatin [Zocor] 80 mg PO QHS #30 tablet Fluticasone/Salmeterol [Advair 250-50 Diskus] 1 each IH BID #1 blst.w.dev Pantoprazole Sodium [Protonix] 20 mg PO BID #60 tablet Thiamine Hydrochloride [Vitamin B1] 100 mg PO BIDCM #60 tablet Primary Care Physician: Angel Perez MD [Primary Care Provider] - Please follow up with your Primary Care Physician in: Follow- up in 3-5 days to review admission. Patient Instructions: What is COPD?, Resources for Chronic Lung Disease, Understanding Pancreatitis, Understanding Alcoholism, Alcoholism: Myths and Facts, The Impact of Alcoholism, Alcohol Addiction, Addiction: Getting Help, Addiction: Your Treatment Options, Why Do You Smoke?, Planning to Quit Smoking, Getting Support for Quitting Smoking, Discharge Instructions for Acute Pancreatitis Disposition: Home Minutes spent on discharge:: 35 Patient Condition:: Fair Medical Necessity - Tobacco Use Smoking Status: Current every day smoker Tobacco Use: Cigarettes Meaningful Use Info Meaningful Use Diagnoses (Choose all that apply): None applicable Code Visit Inpatient E AND M: 03832 Disch Hosp 05/12/18 1321 <Electronically signed by Reyna Kelly > Date Reyna Kelly Cosigner Signature (if applicable): Date CC: Reyna Kelly; Angel Perez MD Signed DISCHARGE INSTRUCTION Observed: 05/12/2018 Status: F Source: [place] 12:55 PM [facility] REPOSITORY [facility] Medical Records Department [address] [place] [address] Instructions for Home/Discharge Instructions 05/12/18 1249 MR#: [id number] Acct: [id number] Name: GRISELDA AVILA Rep #: [id number] : 1955 63 From: Reyna Kelly PCP: Angel Perez MD Status: ADM IN - Discharge Diagnoses Current Active Problems: Current Active and Chronic Problems (Last Reviewed 05/12/18 @ 04:06 by Oswaldo Kelley MD) (1) Acute pancreatitis w/ abdominal pain secondary to EtOH Abuse, Intoxication (2) Acute Encephalopathy, Toxic, Metabolic (3) EtOH Abuse w/ Intoxication (3) Hyperlipidemia (4) Anxiety and Depression (5) Tobacco Abuse (6) Suspected Chronic COPD You will use the following diet at home:: Other - Advise continued full liquids and slow transition back to cardiac diet with low fat/low cholesterol. Your food should be the consistency of: Regular Your liquids should be the consistency of: Regular/Thin Discharge Activity: - - Encourage mild to moderate activity for the next 24-48 hours and advance once cleared per your primary care physician. Call your doctor if you observe: Fever of 101 or Higher, Inability to urinate, Inability to have a bowel movement, Shortness of breath, Dizziness, Fainting spells, Chest pain, Uncontrolled pain Instructions: Understanding Pancreatitis, Discharge Instructions for Acute Pancreatitis, Understanding Alcoholism, Alcoholism: Myths and Facts, The Impact of Alcoholism, Alcohol Addiction, Addiction: Getting Help, Addiction: Your Treatment Options, Why Do You Smoke?, Planning to Quit Smoking, Getting Support for Quitting Smoking, What is COPD?, Resources for Chronic Lung Disease Additional Instructions: During the admission your cholesterol was assessed and despite your current statin regimen upon presentation elevated therefore your statin medication was increased. Given your alcohol abuse history you were discharged with regimen of folic acid, thiamine and multivitamin. We suspect you have underlying COPD (chronic obstructive lung disease) secondary to your tobacco use history. You noted using as needed inhalers but you should be on a specific regimen with a scheduled inhaler and an as needed rescue inhaler which has been started for you upon discharge. We strongly advise tobacco cessation. Please practice safe sobriety. Allergies/Adverse Reactions: Allergies codeine Allergy (Verified 05/12/18 00:31) Shortness of breath latex Adverse Reaction (Verified 05/12/18 00:31) Rash Medications to take at Discharge Aspirin [Adult Low Dose Aspirin EC] 81 mg PO DAILY 03/26/16 Sertraline HCl [Zoloft] 50 mg PO DAILY 03/26/16 Simvastatin [Zocor] 40 mg PO QHS 03/26/16 Albuterol IH (ProAir) [Proair Hfa] 1 - 2 puff INHALATION Q4H PRN PRN #1 inhaler 05/12/18 Fluticasone/Salmeterol [Advair 250-50 Diskus] 1 each IH BID #1 blst.w.dev 05/12/18 Folic Acid 0.4 mg PO DAILY@0800 #30 tablet 05/12/18 Multivitamins,Ther W-Minerals [Multivitamin With Minerals] 1 tablet PO DAILYCM #30 tablet 05/12/18 Pantoprazole Sodium [Protonix] 20 mg PO BID #60 tablet 05/12/18 Simvastatin [Zocor] 80 mg PO QHS #30 tablet 05/12/18 Thiamine Hydrochloride [Vitamin B1] 100 mg PO BIDCM #60 tablet 05/12/18 The following prescriptions were given: Albuterol IH (ProAir) [Proair Hfa] 1 - 2 puff INHALATION Q4H PRN PRN #1 inhaler PRN Reason: dyspnea, wheezing Folic Acid 0.4 mg PO DAILY@0800 #30 tablet Multivitamins,Ther W-Minerals [Multivitamin With Minerals] 1 tablet PO DAILYCM #30 tablet Simvastatin [Zocor] 80 mg PO QHS #30 tablet Fluticasone/Salmeterol [Advair 250-50 Diskus] 1 each IH BID #1 blst.w.dev Pantoprazole Sodium [Protonix] 20 mg PO BID #60 tablet Thiamine Hydrochloride [Vitamin B1] 100 mg PO BIDCM #60 tablet Primary Care Physician: Angel Perez MD [Primary Care Provider] - Please follow up with your Primary Care Physician in: Follow- up in 3-5 days to review admission. Test Results: Test results from this visit will be discussed in further detail at your follow-up appointment, if applicable. Proposed Discharge Date: 05/12/18 05/12/18 9678 <Electronically signed by Reyna Kelly > Date Reyna L White CC: Angel Perez MD LIPID PROFILE Collected: 05/12/2018 Status: F Source: [place] 5:25 AM [facility] REPOSITORY TYPE CODE TESTS RESULT OUT OF RANGE REFERENCE UNITS LAB L501.4900 200 mg/dL Normal CHOL 170 Result Comment: <200 mg/dL Desirable 200-240 mg/dL Borderline >240 mg/dL High Risk LAB L501.5000 mg/dL High TRIG 326 Result Comment: The drugs N-Acetylcysteine and Metamizole may falsely depress this assay. Serum Triglycerides Reference Interval Normal <150 mg/dL Borderline high 150 - 199 mg/dL High 200 - 499 mg/dL Very High > or = 500 mg/dL LAB L501.6400 mg/dL Normal HDL 42 Result Comment: The drugs N-Acetylcysteine and Metamizole may falsely depress this assay. Reference Range HDL <40 mg/dL Low HDL Cholesterol HDL >or= 60 mg/dL High HDL Cholesterol LAB L501.6500 0-130 mg/dL Normal LDL 63 LAB L501.6600 5-40 mg/dL High VLDL 65 Performed By: #### L500.4100 #### [facility] [place], [address] BASIC METABOLIC Collected: 05/12/2018 Status: F Source: [place] PROFILE (BMP) 5:25 AM [facility] REPOSITORY TYPE CODE TESTS RESULT OUT OF RANGE REFERENCE UNITS LAB L501.0100 74-106 mg/dL Normal GLU 84 Result Comment: Please note revised GLUCOSE reference range effective 2017. LAB L501.1000 7-18 mg/dL Normal BUN 8 LAB L501.1100 0.55-1.02 mg/dL Low CREAT,SERUM 0.44 Result Comment: The validity of the calculated GFR AND GFRAA in patients over 70 years has not been determined. Clinical correlation is essential. LAB L501.1110 >60 mL/min Normal EST GFR 154 Result Comment: Non- GFR Calc LAB L501.1115 >60 mL/min Normal EST GFR - AA 186 Result Comment: GFR Calc LAB L501.1255 ml/min Normal Estimated CRCL 110.07 LAB L501.1300 10-20 RATIO BUN/CRE Normal 18.3 LAB L501.2200 8.5-10 mg/dL Low .1 CA 7.2 LAB L501.5300 136-14 mmol/L High 5 NA 147 LAB L501.5600 3.5-5. mmol/L 1 K Normal 4.0 LAB L501.5900 98-107 mmol/L High CL 113 LAB L501.6100 21.0-3 mmol/L 2.0 CO2 Normal 27.0 LAB L501.6200 5-15 GAP Normal 7 Performed By: #### L500.2500 #### [facility] [address] [place], [address] CPK TOTAL, CREATINE Collected: 05/12/2018 Status: F Source: [place] KINASE 5:25 AM [facility] REPOSITORY TYPE CODE TESTS RESULT OUT OF RANGE REFERENCE UNITS LAB L501.3620 26-192 U/L Normal CPK TOTAL 69 Performed By: #### L501.3620 #### [facility] [facility] [address] PHOSPHORUS Collected: 05/12/2018 Status: F Source: [place] 5:25 AM [facility] REPOSITORY TYPE CODE TESTS RESULT OUT OF RANGE REFERENCE UNITS LAB L501.2300 2.5-4.9 mg/dL Low PHOS 2.0 Performed By: #### L501.2300, L501.2450, L501.5200 #### [facility] [address] [place], [address] LIPASE Collected: 05/12/2018 Status: F Source: [place] 5:25 AM [facility] REPOSITORY TYPE CODE TESTS RESULT OUT OF RANGE REFERENCE UNITS LAB L501.2450 73-393 U/L Normal LIPASE 379 Performed By: #### L501.2300, L501.2450, L501.5200 #### [facility] [address] [place], [address] MAGNESIUM Collected: 05/12/2018 Status: F Source: [place] 5:25 AM [facility] REPOSITORY TYPE CODE TESTS RESULT OUT OF RANGE REFERENCE UNITS LAB L501.5200 1.6-2.6 mg/dL Normal MG 2.0 Performed By: #### L501.2300, L501.2450, L501.5200 #### [facility] [address] [place], [address] HISTORY AND PHYSICAL Observed: 05/12/2018 Status: F Source: [place] EXAM 4:21 AM [facility] REPOSITORY [facility] Medical Records Department [address] [place] [address] History and Physical 05/12/18 0159 MR#: [id number] Acct: [id number] Name: GRISELDA AVILA Rep #: [id number] : 1955 63 From: Oswaldo Kelley MD PCP: Angel Perez MD Status: ADM IN Y Location: [place] [address] Problem List (1) Acute encephalopathy Status: Acute (2) Alcohol dependence Status: Acute (3) Pancreatitis, acute Status: Acute History of Present Illness Date of Admission: 05/12/18 Chief Complaint: confusion The patient is a 63 year old F with a significant history of alcohol dependence who was brought to the emergency department because of confusion x 1 day. At the time of my evaluation patient has recently received Ativan and fentanyl and was sedated; unable to provide history. History was taken from emergency department doctor and patient . On the day of admission patient [place] at a [facility] patient called her that she could not find her car keys. The patient also reported that patient was having slurred speech whiles she talked on the phone. Her with the help of police found her in her car slumped over. After patient was found, patient reportedly told her that she was having chest pain. Patient was noted to be vomiting. Whiles in the car driving away from the [place] patient was in a position. At emergency department patient was found to have severely elevated lipase; and elevated alcohol level. Reportedly her did not know that patient had drank alcohol. Her reports previous episodes of alcoholism and at one time patient was found slumped over. However her reported that he did not know the patient had resumed drinking. Acute encephalopathy likely secondary to alcoholism. Clinical monitoring CT head unremarkable Ethanol level 254 Urine drug screen unremarkable. Management as below Alcoholic dependence Will put patient on CIWA protocol for possible withdrawal. Thiamine multivitamins and folic acid ordered. Ativan per protocol. Alcoholic pancreatitis With elevated lipase, elevated alkaline phosphatase; and elevated alcohol level likely patient has alcoholic pancreatitis. Lactated Ringer's at 150 mL's per hour. Because of mild hyponatremia on admission repeat BMP ordered at 10 AM. Consider making changes to IV fluids if her sodium level increases. Lipid profile ordered. Ultrasound of liver and gallbladder ordered. Abnormal urinalysis Noted to have elevated urine occult blood; but with some RBCs seen CPK ordered Hyperlipidemia Atorvastatin continued Tobacco abuse Consider nicotine patch when patient is awake. DVT prophylaxis Subcutaneous Lovenox Past Medical History Medical History: Medical History (Last Reviewed 05/12/18 @ 04:06 by Oswaldo Kelley MD) Depression F32.9 Hypercholesterolemia E78.00 Skin cancer C44.90 Stroke I63.9 Allergies codeine Allergy (Verified 05/12/18 00:31) Shortness of breath latex Adverse Reaction (Verified 05/12/18 00:31) Rash Home Medications: Ambulatory Orders Medication Instructions Recorded Aspirin [Adult Low Dose Aspirin EC] 81 mg PO DAILY 03/26/16 Sertraline HCl [Zoloft] 50 mg PO DAILY 03/26/16 Simvastatin [Zocor] 40 mg PO QHS 03/26/16 Surgical History: Surgical History (Last Reviewed 05/12/18 @ 04:06 by Oswaldo Kelley MD) History of appendectomy Z98.890, Z90.49 Lives: Spouse/ Significant Other Smoking Status: Current every day smoker Tobacco Use: Cigarettes Alcohol: Heavy Drugs: None - *Family History Maternal Family History: Family History (Last Reviewed 05/12/18 @ 04:07 by Oswaldo Kelley MD) Sister Breast cancer Paternal Family History: Family History (Last Reviewed 05/12/18 @ 04:07 by Oswaldo Kelley MD) Sister Breast cancer Review of Systems Unable to obtain accurate/complete ROS d/t: patient sedated, family unable to provide except as mentioned in hpi VTE Information - Inpt Only VTE Present on Admission: No VTE Mechan Device Prophylaxis: None VTE Pharm Prophylaxis ordered?: Yes Patient Problems: Active and Suspected Problems (Last Updated 08/18/17 @ 09:41 by Susan Hernandez) Acute encephalopathy (Acute) Alcohol dependence (Acute) Pancreatitis, acute (Acute) - Physical Exam General: - - Sedated HEENT: Atraumatic, PERRLA, Normocephalic Neck: No Nuchal Rigidity, Trachea Midline Lungs: Clear to auscultation, Normal air movement Cardiovascular: Regular rate, No murmurs Abdomen: Bowel Sounds Present, Soft, Non Tender Extremities: No edema, Capillary Refill Less than 3 Seconds Skin: No rashes Musculoskeletal: No Muscle Wasting Lymphatic: No Cervical, Supraclavicular, or Inguinal Adenopathy Neurological: - - Patient is sedated and unablefollow commands. Psych/Mental Status: - - sedated. Vital Signs Temp Pulse Resp BP Pulse Ox 96.9 F L 102 H 22 H 128/81 H 95 05/12/18 00:20 05/12/18 00:20 05/12/18 00:20 05/12/18 00:20 05/12/18 00:41 Oxygen Delivery Method Room Air Weight: 62.5 kg Body Mass Index (BMI) 22.9 Laboratory Tests Past 24 Hrs WBC RBC Hgb Hct MCV MCH MCHC RDW POC Glucose POC Glucose 100 Assessment/Plan All Active Problems (Last Updated 08/18/17 @ 09:41 by Susan Hernandez) Acute encephalopathy (Acute) Alcohol dependence (Acute) Pancreatitis, acute (Acute) The patient is a 63 year old F with a significant history of alcohol dependence who was brought to the emergency department because of confusion; vomiting, chest pain; positioning and found to have elevated ethanol level; elevated lipase and elevated alkaline phosphatase concerning for alcoholic encephalopathy; alcohol dependence and alcoholic pancreatitis. Acute encephalopathy likely secondary to alcoholism. Clinical monitoring CT head unremarkable Ethanol level 254 Urine drug screen unremarkable. Management as below Alcoholic dependence Will put patient on CIWA protocol for possible withdrawal. Thiamine multivitamins and folic acid ordered. Ativan per CIWA protocol. Alcoholic pancreatitis With elevated lipase, elevated alkaline phosphatase; and elevated alcohol level likely patient has alcoholic pancreatitis. Lactated Ringer's at 150 mL's per hour. Because of mild hyponatremia on admission repeat BMP ordered at 10 AM. Consider making changes to IV fluids if her sodium level increases. Lipid profile ordered. Ultrasound of liver and gallbladder ordered. Abnormal urinalysis Noted to have elevated urine occult blood; but with some RBCs seen CPK ordered Hyperlipidemia Atorvastatin continued Tobacco abuse Consider nicotine patch when patient is awake. DVT prophylaxis Subcutaneous Lovenox Code Visit Inpatient E AND M: [id number] Init Hosp L3 05/12/18 0421 <Electronically signed by Oswaldo Kelley MD> Date Oswaldo Kelley MD Cosigner Signature: Date (if applicable) CC: Angel Perez MD; Oswaldo Kelley MD Signed EMERGENCY DEPARTMENT Observed: 05/12/2018 Status: F Source: [place] SUMMARY 3:22 AM [facility] REPOSIT[facility] Medical Records Department [address] [place] [address] Emergency Department Summary 05/12/18 0212 MR#: [id number] Acct: [id number] Name: GRISELDA AVILA Rep #: [id number] : 1955 63 From: Jason Evangelista MD PCP: Angel Perez MD Status: ADM IN - ER Visit Summary Date of Service: 05/12/18 Chief Complaint: Altered level of consciousness History of Present Illness: The patient is a 63 F who presents by a private vehicle driven by her . He says that she called him and was acting abnormally. He went to pick her up downtown and she was complaining of abdominal pain and she had some vomiting. He said she acted like this in the past when she had a stroke, but otherwise she has been doing well. The patient has no complaints and tells me that she wants to leave. She is agitated so history is limited. Physical Examination: Afebrile and vitals unremarkable except for heart rate of 102 and a respiratory rate of 22. Patient is grabbing her abdomen and appears uncomfortable. She is agitated, saying that she wants to leave. She is not answering questions or cooperating with the exam. Her heart is tachycardic but regular. Lungs are clear. Abdomen is soft and nontender. Skin normal in color without diaphoresis or pallor. Patient does have some material at her nostrils which appears to be consistent with emesis. Test Results: EKG sinus rhythm at a rate of 99. Hemoglobin 15.1. Sodium 146, potassium 3.4, chloride 109. Alkaline phosphatase 119 and lipase 1600. INR 0.9 and PTT 22.8. Urinalysis pending. Troponin normal. Alcohol 245. Tox screen pending. Chest x-ray was normal. CT head was normal. Emergency Department Course and Treatment: Patient was seen immediately. EKG was done and she was placed on a monitor. She did require some fluids and Ativan. She responded well to this and was cooperative with testing. Evaluation indicated that she was intoxicated, and I suspect this is why she is agitated. Her lipase is elevated, causing her emesis and abdominal pain. She was treated with fentanyl. Vitals have remained stable. Hospitalist was contacted for admission. Treatment Plan: As above Disposition: Admission Impression: 1. Alcohol intoxication 2. Pancreatitis This note was generated with [employer] dictation software. It may contain incorrect words, spelling, and punctuation that were not noted in review of the chart prior to signing ED Disposition - Plan for ED Patient: Chief Complaint: Chest Pain Referrals: Angel Perez MD [Primary Care Provider] - What to do if you have Problems For any increased pain, shortness of breath, bleeding, nausea or vomiting, chest pain, or any unexpected problems, contact your Primary Care Provider. Call [facility] ([phone]) or report to the closest Emergency Room. Call 911 if necessary. 05/12/18 0322 <Electronically signed by Jason Evangelista MD> Date Jason Evangelista MD Cosigner Signature (If Indicated): Date CC: Angel Perez MD ABDOMEN LIMITED Observed: 05/12/2018 Status: F Source: [place] 3:11 AM [facility] Imaging Services [facility] [place] [address] Abdomen Limited MR#: [id number] Acct: [id number] Name: GRISELDA AVILA Rep #: [id number] : 1955 F 63 From: Juliocesar Kirkpatrick MD PCP: Angel Perez MD Status: ADM IN Study: Abdomen Limited Date of Exam: 05/12/18 Exam# [id number] Ordering Dr: Oswaldo Kelley MD STUDY: ABDOMINAL ULTRASOUND - RIGHT UPPER QUADRANT REASON FOR VISIT: Female, 63 years old. Pancreatitis. TECHNIQUE: Ultrasound evaluation of the right upper quadrant was performed with real-time and static naqvi-scale imaging. TECHNICAL QUALITY: Adequate. COMPARISON: CT abdomen and pelvis March 26, 2016. FINDINGS: Liver: The liver measures 14.9 cm. There is normal echogenicity of the liver. The bile ducts are within normal limits. There is hepatic color flow. The direction of portal flow is hepatopetal. There is no demonstrated mass lesion. Gallbladder: Normal distended gallbladder. The gallbladder wall measures 2.7 mm. There are hypodensities along the gallbladder wall at the fundus that suggest mural calcifications. There is a negative sonographic Cagle's sign. There is no pericholecystic fluid. There are no gallstones. Common Bile Duct (C.B.D.): The common bile duct measures 3.8 mm. Pancreas: Normal size of the head, body and tail of the pancreas. There is borderline increased echogenicity of the pancreas. There is no demonstrated pancreatic mass or cyst. Right Kidney: Normal size of the right kidney. The right kidney measures 10.1 x 5.2 x 4.5 cm. Normal renal cortex. The right cortex measures 1.2 cm. There is no demonstrated renal mass or cyst. There is no right hydronephrosis. US/Abdomen Limited IMPRESSION: 1. Generally unremarkable visualized pancreas. 2. Possible mural calcifications of the gallbladder wall at the fundus. No gallstones or signs of acute cholecystitis. 3. The visualized liver and right kidney were unremarkable. Electronically Signed: Bony Kirkpatrick MD at 12:41 EDT , Service support , CC: Angel Perez MD; Oswaldo Kelley MD Director Institution: Signed URINE DRUG SCREEN Collected: 05/12/2018 Status: F Source: [place] (VISTA) 1:50 AM [facility] TYPE CODE TESTS RESULT OUT OF RANGE REFERENCE UNITS LAB L505.0075 TO BE Normal CONFIRMED Result Comment: CONFIRMATORY TESTING FOR ALL POSITIVE URINE DRUG SCREEN RESULTS WILL ONLY BE SENT OUT UPON PHYSICIAN ORDER. VISTA Urine Drug Screen methods provide only preliminary analytical test results. A more specific alternate chemical method must be used in order to obtain a confirmed analytical result. Gas chromatography/mass spectrometery (GC/MS) is the preferred confirmatory method. Clinical consideration and professional judgement should be applied to any drug of abuse test result, particularly when preliminary positive results are used. URINE TCA TESTING MUST BE ORDERED SEPARATELY. USE TEST MNEMONIC: [facility] LAB L505.5005 VISTA UDS PH 5 Normal LAB L505.5015 <1000 ng/mL AMPHETAMINES Normal NEGATIVE LAB L505.5025 < 200 ng/mL BARBITIURATES Normal NEGATIVE LAB L505.5035 < 200 ng/mL BENZODIAZIPINE Normal NEGATIVE LAB L505.5045 < 300 ng/mL COCAINE Normal NEGATIVE LAB L505.5055 < 500 ng/mL ECSTACY Normal NEGATIVE LAB L505.5065 < 300 ng/mL METHADONE Normal NEGATIVE LAB L505.5075 < 300 ng/mL OPIATES Normal NEGATIVE LAB L505.5085 < 25 ng/mL PCP Normal NEGATIVE LAB L505.5095 < 50 ng/mL THC Normal NEGATIVE Performed By: #### L505.5000 #### [facility] [address] [place], [place], [address] URINALYSIS, COMPLETE Collected: 05/12/2018 Status: F Source: [place] 1:50 AM [facility] Order Comment: How was Urine Obtained? LEGAL RESEARCH ANALYST TO SPECIFY TYPE CODE TESTS RESULT OUT OF REFERENCE UNITS RANGE LAB L400.3000 Yellow COLOR Normal Yellow LAB L400.3050 Clear CLARITY Normal Clear LAB L400.3200 Normal mg/dl GLUCOSE, UR Normal Normal LAB L400.3300 Negative mg/dL BILIRUBIN Normal URINE Negative LAB L400.3400 Negative mg/dl KETONE UR Normal Negative LAB L400.3465 1.002-1.030 SP.GR. Normal DIPSTX 1.015 LAB L400.3550 5.0 - 8.0 pH UR Normal 5.0 LAB L400.3600 Negative mg/dl PROT DIPSTX Normal Negative LAB L400.3700 Normal mg/dl UROBILI Normal Normal LAB L400.3750 Negative NITRITE UR Normal Negative LAB L400.3780 Negative /ul OCCULT High BLOOD-UR 50 LAB L400.3800 Negative /ul LEUK High ESTERASE 25 LAB L400.4050 0-5 /hpf WBC Normal 0 SEEN LAB L400.4100 0-5 /hpf RBC-UA Normal 0-5 SEEN LAB L400.4150 5-10 /hpf SQUAM EPI Normal 0-5 SEEN LAB L400.4300 None Seen /hpf BACTERIA Normal 0 SEEN LAB L400.4350 <or=2+ /hpf MUCUS, Normal URINE 0 SEEN LAB L400.4200 0-5 /hpf Normal TRANSITIONAL EP 0 SEEN Performed By: #### L400.0001 #### [facility] [address] [place], [address] BEDSIDE GLUCOSE Collected: 05/12/2018 Status: F Source: [place] 12:44 AM [facility] TYPE CODE TESTS RESULT OUT OF RANGE REFERENCE UNITS LAB L501.080 70-110 mg/dL Normal BEDSIDE GLU 100 Result Comment: MANAGEMENT OF PATIENT CARE PER NURSING PROTOCOL Performed By: #### L501.080 #### [facility] Point of Care [address] [place] [address] CHEST 1 VIEW Observed: 05/12/2018 Status: F Source: [place] (PORTABLE) 12:35 AM [facility] Imaging Services [address] [place] [address] Chest 1 View (Portable) MR#: [id number] Acct: [id number] Name: GRISELDA AVILA Rep #: [id number] : 1955 F 63 From: Horacio Ryan MD PCP: Angel Perez MD Status: REG ER Study: Chest 1 View (Portable) Date of Exam: 05/12/18 Exam# [id number] Ordering Dr: Jason Evangelista MD STUDY: X-RAY CHEST REASON FOR EXAM: Female, 63 years old. Chest pain TECHNIQUE: 1 view COMPARISON: May 03, 2018 FINDINGS: The lungs are clear and expanded. There is no demonstrated pleural abnormality. Normal size heart. Normal mediastinum and linnette. Normal visualized pulmonary arteries. Normal visualized aortic arch and descending thoracic aorta. Normal visualized thoracic spine. Normal visualized ribs, clavicles, and shoulders. There is no demonstrated abnormality of the visualized soft tissue structures of the upper abdomen. RAD/Chest 1 View (Portable) IMPRESSION: Normal x-ray examination of the chest. No acute findings in the lungs Electronically Signed: Horacio Ryan MD at 1:45 EDT Tel , Service support , CC: Jason Evangelista MD; Angel Perez MD Director Institution: Signed BRAIN/HEAD WITHOUT Observed: 05/12/2018 Status: F Source: [place] CONTRAST 12:35 AM [facility] Imaging Services [address] [place] [address] Brain/Head without Contrast MR#: [id number] Acct: [id number] Name: GRISELDA AVILA Rep #: [id number] : 1955 F 63 From: Horacio Ryan MD PCP: Angel Perez MD Status: REG ER Study: Brain/Head without Contrast Date of Exam: 05/12/18 Exam# [id number] Ordering Dr: Jason Evangelista MD STUDY: CT BRAIN WITHOUT CONTRAST REASON FOR EXAM: Female, 63 years old. Altered mental status RADIATION DOSAGE (If Supplied By Facility): CTDIvol = ( 44.99 ) mGy, DLP = ( 796.11 ) mGycm TECHNIQUE: Transaxial CT imaging of the brain was performed without administration of intravenous contrast material. Individualized dose optimization techniques were used for this CT. COMPARISON: June 08, 2010 FINDINGS: There is no scalp hematoma and no calvarial fractures. Physiologic calcifications in both lentiform nuclei and in the left cerebellar lobe-probably within the dentate nucleus. These were present in the prior examination. There is no acute hemorrhage or acute infarction and no intra or extra-axial tumor mass. The ventricles, basal cisterns and cortical sulci are normal with no midline shift. The orbits, paranasal sinuses and mastoid air cells are normal CT/Brain/Head without Contrast IMPRESSION: No acute findings in the brain. Electronically Signed: Horacio Ryan MD at 1:53 EDT Tel , Service support , CC: Jason Evangelista MD; Angel Perez MD Director Institution: Signed CBC W/DIFF, AUTOMATED Collected: 05/12/2018 Status: C Source: [place] 12:30 AM [facility] TYPE CODE TESTS RESULT OUT OF RANGE REFERENCE UNITS LAB L100.1000 4.4-11.0 K/mm3 Normal WBC 10.3 LAB L100.1200 4.2-5.4 M/mm3 Normal RBC 4.94 LAB L100.1300 12.0-15.0 g/dl High HGB 15.1 LAB L100.1400 37-47 % Normal HCT 45.0 LAB L100.1500 81-99 fL Normal MCV 91.1 LAB L100.1600 27.0-32.0 pg Normal MCH 30.6 LAB L100.1700 32-36 g/gl Normal MCHC 33.6 LAB L100.1810 11.6-14.6 % Normal RDW CV 13.1 LAB L100.1820 35.1-43.9 fl Normal RDW SD 43.2 LAB L100.1900 150-450 K/mm3 Normal PLT 244 LAB L100.2000 6.2-12.0 fl Normal MPV 9.1 LAB L100.2100 47-70 % Low NEUT% 36.6 LAB L100.2200 19-41 % High LY% 50.9 LAB L100.2300 0-10 % Normal MONO% 7.9 LAB L100.2400 0-5 % Normal EO% 2.3 LAB L100.2500 0-1 % Normal BASO% 0.5 LAB L100.2550 0.0-0.9 % High IM GRAN % 1.800 Result Comment: IG% - Immature Granulocytes (promyelocytes, myelocytes and metamyelocytes) > 1% indicates that a LEFT SHIFT is Present. LAB L100.2620 2.0-7.7 X10 3/uL Normal Absolute Neut 3.8 LAB L100.2720 0.83-4.51 X10 3/ul High Absolute Lymph 5.24 LAB L100.4500 Normal SMEAR COMMENT SEE COMMENT Result Comment: LYMPHOCYTOSIS NOTED LAB L100.5500 ADEQ PLT EST Normal ADEQUATE LAB L100.7300 ANISO RARE Normal LAB L100.7800 RARE Normal MACROCYTE LAB L100.9900 PATH REV Normal Reviewed Result Comment: AMENDED REPORT 05/14/18 1238 PATH REV previously reported as: December Performed By: #### L100.0100 #### [facility] [address] [place], [address] PROTHROMBIN TIME W/INR Collected: 05/12/2018 Status: F Source: [place] 12:30 AM [facility] TYPE CODE TESTS RESULT OUT OF RANGE REFERENCE UNITS LAB L300.4150 11.7-14.9 SECONDS Normal PROTIME 11.8 LAB L300.4200 Normal INR 0.9 Performed By: #### L300.3900, L300.4310 #### [facility] [address] [facility]. [place], [place], [address] PARTIAL THROMBOPLAST Collected: 05/12/2018 Status: F Source: [place] TIME 12:30 AM [facility] TYPE CODE TESTS RESULT OUT OF REFERENCE UNITS RANGE LAB L300.4310 24.1-36.2 Seconds Low PTT 22.8 Performed By: #### L300.3900, L300.4310 #### [facility] [address], [place], [id number] ALCOHOL, BLOOD Collected: 05/12/2018 Status: F Source: [place] (MEDICAL)-SERUM 12:30 AM [facility] TYPE CODE TESTS RESULT OUT OF RANGE REFERENCE UNITS LAB L501.9100 mg/dL Normal SERUM 254.0 ETOH Result Comment: The serum:whole blood ethanol ratio is approximately 1.14 and varies slightly with hematocrit. Medical Alcohol reference interval and critical value in non-tolerant individuals; 50 - 100 Impairment 100 Intoxication 100 - 250 Severe Poisoning 250 - 400 Deep/possible fatal coma Performed By: #### L501.9100 #### [facility] [address] [place], [address] LIVER PROFILE Collected: 05/12/2018 Status: F Source: [place] 12:30 AM [facility] TYPE CODE TESTS RESULT OUT OF RANGE REFERENCE UNITS LAB L501.1500 6.4-8.2 g/dL Normal T PROT 6.9 LAB L501.1800 3.2-5.0 g/dL Normal ALB 3.7 LAB L501.1950 2.2-4.2 g/dL Normal GLOB 3.2 LAB L501.4100 15-37 U/L Normal AST 18 LAB L501.4305 45-117 U/L High ALK P 119 LAB L501.4405 13-56 U/L Normal ALT 32 LAB L501.4600 0.20-1.00 mg/dL Normal T BILI 0.20 LAB L501.4700 0.00-0.30 mg/dL Normal D BILI 0.07 Performed By: #### L500.3400 #### [facility] [address], [place], [id number] BASIC METABOLIC Collected: 05/12/2018 Status: F Source: [place] PROFILE (BMP) 12:30 AM [facility] TYPE CODE TESTS RESULT OUT OF RANGE REFERENCE UNITS LAB L501.0100 74-106 mg/dL Normal GLU 100 Result Comment: Fasting Glucose result from 100 to 125 mg/dL suggests IMPAIRED HOMEOSTASIS per A.D.A. criteria. Please note revised GLUCOSE reference range effective 2017. LAB L501.1000 7-18 mg/dL Normal BUN 9 LAB L501.1100 0.55-1.02 mg/dL Normal CREAT,SERUM 0.64 Result Comment: The validity of the calculated GFR AND GFRAA in patients over 70 years has not been determined. Clinical correlation is essential. LAB L501.1110 >60 mL/min Normal EST GFR 99 Result Comment: Non- GFR Calc LAB L501.1115 >60 mL/min Normal EST GFR - AA 120 Result Comment: GFR Calc LAB L501.1255 ml/min Normal Estimated CRCL 78.86 LAB L501.1300 10-20 RATIO Normal BUN/CRE 14.1 LAB L501.2200 8.5-10 mg/dL Low .1 CA 7.8 LAB L501.5300 136-14 mmol/L High 5 NA 146 LAB L501.5600 3.5-5. mmol/L Low 1 K 3.4 LAB L501.5900 98-107 mmol/L High CL 109 LAB L501.6100 21.0-3 mmol/L Normal 2.0 CO2 26.0 LAB L501.6200 5-15 Normal GAP 11 Performed By: #### L500.2500, L501.2450, L501.4010 #### [facility] [address] [facility] [place], [place], [id number] LIPASE Collected: 05/12/2018 Status: F Source: [place] 12:30 AM [facility] TYPE CODE TESTS RESULT OUT OF REFERENCE UNITS RANGE LAB L501.2450 73-393 U/L High LIPASE 1666 Performed By: #### L500.2500, L501.2450, L501.4010 #### [facility] [address] [place], [address] TROPONIN-I Collected: 05/12/2018 Status: F Source: [place] 12:30 AM [facility] TYPE CODE TESTS RESULT OUT OF RANGE REFERENCE UNITS LAB L501.4010 <0.045 ng/mL Normal < 0.015 TROPONIN-I Result Comment: TROPONIN-I EXPECTED VALUES <0.045 Negative 0.045 - 0.590 Consistent with Cardiac Damage > OR = 0.600 Critical Value Not every elevated troponin is indicative of DC. These values should be used with clinical judgement in examining the patient's clinical picture for diagnosis. To establish a diagnosis of DC versus myocardial injury, there must be a demonstrated rise and/or fall in the troponin values, in addition to ischemic symptoms, EKG changes, new regional wall motion abnormality, and/or angiographical evidence. PLEASE NOTE: REFERENCE RANGES EDITED 17 Performed By: #### L500.2500, L501.2450, L501.4010 #### [facility] [address] [facility] [place], [address] 12 LEAD ELECTROCARDIOGRAM Observed: 05/07/2018 Status: F Source: [place] 2:47 PM [facility] Cardiovascular Services [address] [place] [address] 12 Lead EKG 05/03/18 1500 MR#: [id number] Acct: [id number] Name: GRISELDA AVILA Rep #: [id number] : 1955 63 From: David Cardoza MD Attending Dr: Status: DEP ER Ordering Dr: Johnie Dodd MD Date: 05/03/18 Location: ED Sex: F C Admitted: Test Reason : SOB Blood Pressure : / mmHG Vent. Rate : 070 BPM Atrial Rate : 070 BPM P-R Int : 148 ms QRS Dur : 090 ms QT Int : 404 ms P-R-T Axes : 083 060 060 degrees QTc Int : 436 ms Normal sinus rhythm Septal DC, age undetermined, cannot be excluded Confirmed by SONY THORPE, DAVID ([id number]), dictionary editor TYESHA AVALOS ([id number]) on 05/07/2018 2:47:29 PM Referred By: NEAL Confirmed By:DAVID CARDOZA MD 05/07/18 1447 Date David Cardoza MD CC: Angel Perez MD; Johnie Dodd MD Signed DISCHARGE INSTRUCTION Observed: 05/03/2018 Status: F Source: [place] 4:09 PM [facility] Medical Records Department [address] [place] [address] Discharge Instruction 05/03/18 1558 MR#: [id number] Acct: [id number] Name: GRISELDA AVILA Rep #: [id number] : 1955 63 From: Johnie Dodd MD PCP: Angel Perez MD Status: REG ER ED Disposition - Plan for ED Patient: Disposition: Home or Assisted Living Chief Complaint: Shortness of Breath Instructions: ED Upper Resp Infec Abx Tx, ED COPD Flare Prescriptions: Albuterol Sulfate [Proventil Hfa] 6.7 gm IH Q2H PRN PRN 7 Days #1 hfa.aer.ad PRN Reason: Bronchospasm Azithromycin [Zithromax Z-Maico] 250 mg PO UD #1 box Prednisone [Deltasone] 40 mg PO DAILY 7 Days #7 tab Referrals: Angel Perez MD [Primary Care Provider] - As Needed Aguila Auugstine MD [STAFF PHYSICIAN] - As soon as possible Additional Instructions: 1-2 puffs on your inhaler every 2-4 hours as needed for wheezing. Prednisone 40 mg a day till gone. Zithromax Z-Maico for antibiotic. Call and follow-up with a receiving inspector. Return to the ER if you are feeling worse. Your blood work, EKG and chest x-ray today were unremarkable. The chest x-ray shows chronic changes from smoking but no pneumonia. Her blood counts were normal. What to do if you have Problems For any increased pain, shortness of breath, bleeding, nausea or vomiting, chest pain, or any unexpected problems, contact your Primary Care Provider. Call [facility] ([phone]) or report to the closest Emergency Room. Call 911 if necessary. 05/03/18 5984 <Electronically signed by Johnie Dodd MD> Date Johnie Dodd MD Cosigner Signature (If Indicated): Date CC: Angel Perez MD EMERGENCY DEPARTMENT Observed: 05/03/2018 Status: F Source: [place] SUMMARY 4:09 PM [facility] Medical Records Department [address] [place] [address] Emergency Department Summary 05/03/18 1448 MR#: [id number] Acct: [id number] Name: GRISELDA AVILA Rep #: [id number] : 1955 63 From: Johnie Dodd MD PCP: Angel Perez MD Status: REG ER - ER Visit Summary Date of Service: 05/03/18 Chief Complaint: Shortness of breath History of Present Illness: The patient is a 63 F history of prior stroke. Patient is a long-term smoker. States she has had a chronic cough for 3 weeks. Of greenish sputum. Chest hurts with coughing. She denies any history of DVT or PE. She denies any calf pain or swelling. She denies any bang hemoptysis. She has had a subjective fever cough and congestion. She says she coughs so much at times she will throw up afterwards. She denies any melena. Physical Examination: Older female vital signs are stable. She is afebrile. She does not look septic or toxic. Her pulse ox is 90% on room air no hypoxia. H EENT exam unremarkable. Posterior pharynx moist and pink. No erythema or exudate. No stridor or drooling. Neck nontender. No lymphadenopathy. No JVD. Lungs coarse breath sounds. Dry hacking cough. Prolonged expiratory phase. A few scattered wheezes. No rales nor rhonchi. Heart regular rhythm rate about 80 no murmur. Abdomen soft nontender. She is moving all 4 extremities. The neurovascular intact. Calves are nontender without edema or cords. Neurologically she is awake and alert with no focal motor deficits. Back nontender. Test Results: Chest x-ray shows chronic changes no acute process. Normal cardiac silhouette and mediastinum. Read by myself and the radiologist. EKG sinus rhythm a rate of 70 no CBC normal white count of 9. Hemoglobin 15. Electrolytes normal. Gap is 6. Troponin normal. Emergency Department Course and Treatment: Older female with chronic cough and shortness of breath. She will receive aerosols and IV Solu-Medrol. Patient is doing somewhat better after the aerosols and Solu- Medrol. I think this is underlying respiratory infection with more than likely new onset COPD. Patient is a long-term smoker. Has never been diagnosed with any underlying lung disease. Treatment Plan: 40 mg of prednisone for the next 7 days. Proventil inhaler. Follow-up with Dr. Augustine or Dr. Rolon of pulmonology. Disposition: Discharge Impression: Acute dyspnea secondary to bronchitis and bronchospasm Tobacco abuse with suspected underlying COPD This note was generated with [employer] dictation software. It may contain incorrect words, spelling, and punctuation that were not noted in review of the chart prior to signing ED Disposition - Plan for ED Patient: Chief Complaint: Shortness of Breath Referrals: Angel Perez MD [Primary Care Provider] - What to do if you have Problems For any increased pain, shortness of breath, bleeding, nausea or vomiting, chest pain, or any unexpected problems, contact your Primary Care Provider. Call [facility] ([phone]) or report to the closest Emergency Room. Call 911 if necessary. 05/03/18 1609 <Electronically signed by Johnie Dodd MD> Date Johnie Dodd MD Cosigner Signature (If Indicated): Date CC: Angel Perez MD CBC W/DIFF, AUTOMATED Collected: 05/03/2018 Status: F Source: [place] 3:20 PM [facility] REPOSITORY TYPE CODE TESTS RESULT OUT OF RANGE REFERENCE UNITS LAB L100.1000 4.4-11.0 K/mm3 Normal WBC 9.0 LAB L100.1200 4.2-5.4 M/mm3 Normal RBC 4.95 LAB L100.1300 12.0-15.0 g/dl Normal HGB 15.0 LAB L100.1400 37-47 % Normal HCT 44.0 LAB L100.1500 81-99 fL Normal MCV 88.9 LAB L100.1600 27.0-32.0 pg Normal MCH 30.3 LAB L100.1700 32-36 g/gl Normal MCHC 34.1 LAB L100.1810 11.6-14.6 % Normal RDW CV 12.3 LAB L100.1820 35.1-43.9 fl Normal RDW SD 39.2 LAB L100.1900 150-450 K/mm3 Normal PLT 237 LAB L100.2000 6.2-12.0 fl Normal MPV 9.2 LAB L100.2100 47-70 % Normal NEUT% 56.5 LAB L100.2200 19-41 % Normal LY% 34.9 LAB L100.2300 0-10 % Normal MONO% 7.1 LAB L100.2400 0-5 % Normal EO% 1.0 LAB L100.2500 0-1 % Normal BASO% 0.2 LAB L100.2550 0.0-0.9 % Normal IM GRAN % 0.300 Result Comment: IG% - Immature Granulocytes (promyelocytes, myelocytes and metamyelocytes) > 1% indicates that a LEFT SHIFT is Present. LAB L100.2620 2.0-7.7 X10 3/uL Normal Absolute Neut 5.1 LAB L100.2720 0.83-4.51 X10 3/ul Normal Absolute Lymph 3.13 Performed By: #### L100.0100 #### [facility]. [place], [place], [address] BASIC METABOLIC Collected: 05/03/2018 Status: F Source: [place] PROFILE (BMP) 3:20 PM [facility] REPOSITORY TYPE CODE TESTS RESULT OUT OF RANGE REFERENCE UNITS LAB L501.0100 74-106 mg/dL Normal GLU 89 Result Comment: Please note revised GLUCOSE reference range effective 2017. LAB L501.1000 7-18 mg/dL Normal BUN 11 LAB L501.1100 0.55-1.02 mg/dL Normal CREAT,SERUM 0.92 Result Comment: The validity of the calculated GFR AND GFRAA in patients over 70 years has not been determined. Clinical correlation is essential. LAB L501.1110 >60 mL/min Normal EST GFR 65 Result Comment: Non- GFR Calc LAB L501.1115 >60 mL/min Normal EST GFR - AA 78 Result Comment: GFR Calc LAB L501.1255 ml/min Normal Estimated CRCL 52.64 LAB L501.1300 10-20 RATIO Normal BUN/CRE 11.9 LAB L501.2200 8.5-10 mg/dL Normal .1 CA 9.2 LAB L501.5300 136-14 mmol/L Normal 5 NA 138 LAB L501.5600 3.5-5. mmol/L Normal 1 K 3.9 LAB L501.5900 98-107 mmol/L Normal CL 105 LAB L501.6100 21.0-3 mmol/L Normal 2.0 CO2 27.0 LAB L501.6200 5-15 Normal GAP 6 Performed By: #### L500.2500, L501.4010 #### [facility] [address] [facility]. [place], [place], [id number] TROPONIN-I Collected: 05/03/2018 Status: F Source: [place] 3:20 PM [facility] REPOSITORY TYPE CODE TESTS RESULT OUT OF RANGE REFERENCE UNITS LAB L501.4010 <0.045 ng/mL Normal < 0.015 TROPONIN-I Result Comment: TROPONIN-I EXPECTED VALUES <0.045 Negative 0.045 - 0.590 Consistent with Cardiac Damage > OR = 0.600 Critical Value Not every elevated troponin is indicative of DC. These values should be used with clinical judgement in examining the patient's clinical picture for diagnosis. To establish a diagnosis of DC versus myocardial injury, there must be a demonstrated rise and/or fall in the troponin values, in addition to ischemic symptoms, EKG changes, new regional wall motion abnormality, and/or angiographical evidence. PLEASE NOTE: REFERENCE RANGES EDITED 17 Performed By: #### L500.2500, L501.4010 #### [facility] [address] [facility]. [place], [place], [id number] CHEST PA AND LATERAL Observed: 05/03/2018 Status: F Source: [place] 2:45 PM [facility] REPOSITORY [facility] Imaging Services [address] [place] [address] Chest PA and Lateral MR#: [id number] Acct: [id number] Name: GRISELDA AVILA Rep #: [id number] : 1955 F 63 From: August Gentile MD PCP: Angel Perez MD Status: PRE ER Study: Chest PA and Lateral Date of Exam: 05/03/18 Exam# [id number] Ordering Dr: Johnie Dodd MD STUDY: X-RAY CHEST REASON FOR EXAM: Female, 63 years old. 3 week history of shortness of breath and generalized illness. TECHNIQUE: AP and lateral views of the chest. COMPARISON: Comparison is made with prior study dated June 08, 2010. FINDINGS: Hyperinflation. Increased bronchovascular markings in the upper lobes suggestive of emphysematous changes. There is no demonstrated pleural abnormality. Normal size heart. Normal mediastinum and linnette. Normal visualized pulmonary arteries. Normal visualized aortic arch and descending thoracic aorta. There is demineralization of the osseous structures. Normal visualized ribs, clavicles, and shoulders. There is no demonstrated abnormality of the visualized soft tissue structures of the upper abdomen. RAD/Chest PA and Lateral IMPRESSION: Hyperinflation. No acute abnormality is seen. Electronically Signed: August Gentile MD at 15:43 EDT Tel [phone], Service support , CC: Angel Perez MD; Johnie Dodd MD Director Institution: Signed CREATININE FINGERSTICK Collected: 05/02/2018 Status: F Source: [place] 10:55 AM [facility] REPOSITORY TYPE CODE TESTS RESULT OUT OF RANGE REFERENCE UNITS LAB L9100.0210 0.55-1.02 mg/dL Normal CREATININE WB 0.6 LAB L9100.0220 >60 mL/min EGFR WB Normal > 60.0000 Performed By: #### L9100.0200 #### [facility] Point of Care [address] [place], [place] [address] [address] BRAIN W/WO CONTRAST Observed: 05/02/2018 Status: F Source: [place] 10:33 AM [facility] REPOSITORY [facility] Imaging Services [place] [address] Brain W/WO Contrast MR#: [id number] Acct: [id number] Name: GRISELDA AVILA Rep #: [id number] : 1955 F 63 From: Brayden Negron MD PCP: Angel Perez MD Status: REG CLI Study: Brain W/WO Contrast Date of Exam: 05/02/18 Exam# [id number] Ordering Dr: Angel Perez MD STUDY: MRI BRAIN WITH AND WITHOUT CONTRAST REASON FOR EXAM: Female, 63 years old. Dizziness, headaches and blacked out 4 weeks ago. TECHNIQUE: Standardized multiplanar fat and water weighted pulse sequences were obtained. 6 ml of Gadavist contrast material was administered intravenously for the contrast portion of the examination. COMPARISON: CTA head 06/08/2010. FINDINGS: No restricted diffusion to suspect acute or subacute ischemic infarct. Prominent converging intramedullary veins in the left cerebellar hemisphere is developmental venous anomaly. They ultimately drain into the left superior cerebellar vein. Normal size of the ventricles and extra-axial spaces for the patient's age. Additional subcortical white matter T2 FLAIR hyperintensity foci in the left subinsular white matter and above the left lentiform nucleus. They are nonspecific and are presumably secondary to microvascular disease. Normal bilateral basal ganglia. Normal thalami. There is no extra-axial fluid accumulation. Normal flow voids within the major intracranial circulation suggesting patency by spin echo criteria. Normal venous enhancement. There is no enhancing intra-axial or extra-axial abnormality. Normal sella turcica, pituitary gland, infundibular stalk, optic chiasm and hypothalamus. Normal tectal plate and pineal gland. Normal midbrain, melony and medulla. Normal cerebellum. Normal basal cisterns. Normal bilateral temporal bones. Normal bilateral internal auditory canals. No demonstrated orbital abnormality, within the constraints of a routine brain study. Normal visualized paranasal sinuses. Normal calvarium and skull base. Normal visualized soft tissue structures. Normal visualized upper cervical spine. MRI/Brain W/WO Contrast IMPRESSION: 1. 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 2. Slight increase in number of nonspecific white matter T2 FLAIR hyperintensity foci in the left subinsular white matter and above the left lentiform nucleus. They are presumably secondary to microvascular disease. 3. No MRI evidence of acute or subacute ischemic infarct or acute intracranial abnormality. Electronically Signed: Brayden Negron MD at 14:57 EDT , Service support , CC: Angel Perez MD Director Institution: Signed ALLERGIES ALLERGIES DATE TYPE / CODE NAME / CODE REACTION SEVERITY SOURCE 07/11/2018 Drug codeine/F006 Shortness of Unknown [facility]/4160 903113(RXNOR breath [place] [address](SNOMED M) Repository CT) 07/11/2018 Drug latex/L53712 Rash Unknown [place] [facility] All[facility]/4160 8921(RXNORM) [facility](SNOMED Repository CT) 08/18/2017 Drug clonazepam/F Shortness of Unknown [place] [facility] Allergy/4160 090861020(RX [place] [address](SNOMED NORM) Repository CT) ENCOUNTERS ENCOUNTERS ADMIT/DISCHARGE ACCOUNT ADMITTING ENCOUNTER LOCATION SOURCE NUMBER CLASS 08/25/2018 [id number] Ambulatory [place] Debbie 4 [facility] ing:CT Repository 07/11/2018/ [id number] Ambulatory BMSBuilding:B [place] 8 7 [facility] Repository 06/26/2018 [id number] Ambulatory [place] Debbie 9 [facility] ing:PSN Repository 06/26/2018 [id number] Ambulatory BMSBuilding:W Debbie 5 [facility] Repository 06/22/2018 [id number] Ambulatory [place] Debbie 1 [facility] ing:PSN Repository 06/22/2018 [id number] Ambulatory BMSBuilding:W Debbie 9 [facility] Repository 06/08/2018/ [id number] Ambulatory BMSBuilding:B [place] 8 9 [facility] Repository 05/12/2018/ [id number] [place], Ambulatory [place] Debbie 8 1 [facility] ing:PCURoom: Repository [id number]: 1 05/12/2018 [id number] Ambulatory BMSBuilding:W [place] 6 [facility] Repository 05/12/2018 [id number] [place], Ambulatory BMSBuilding:B [place] 5 [place] Repository 05/03/2018/ [id number] Emergency [place] Debbie 8 8 [facility] ing:ED Repository 05/02/2018 [id number] Ambulatory [place] Debbie 6 [facility] ing:MRI Repository PAYERS PAYERS ENCOUNTER GUARANTOR PAYER SUBSCRIBER SOURCE 08/25/2018 JAMILA Primary GRISELDA A [place] [id number] TR Insurance:AETNA HIDERDOB: [address] Number: [id number] [address]Xeb: [id number] Repository Date:8065-90-44[address] ( [id number] [address]UU: 08/25/2018 Secondary NOT GIVENUNK [place] Insurance:SELF PAY [facility] Number: Effective Repository Date:2018-08-20 07/11/2018 JAMILA Primary GRISELDA A [place] [id number] TR Insurance:AETNA HIDERDOB: [address] Number: [id number] Indian Medical Center [address]Ayq: [id number] Repository Date:3931-51-40[address] ( [id number] [place] [address]YP: 07/11/2018 Secondary NOT GIVENUNK [place] Insurance:SELF PAY [facility] Number: Effective Repository Date:2018-07-04 06/26/2018 JAMILA Primary GRISELDA A [place] [id number] TR Insurance:AETNA HIDERDOB: [address] Number: [id number] Indian Medical Center [address]Rdf: [id number] Repository Date:7666-49-83HR BOX (HP) [id number] [place], [place] [address]MA: 06/26/2018 Secondary NOT GIVENUNK [place] Insurance:SELF PAY [facility] Number: Effective Repository Date:2018-06-08 06/26/2018 JAMILA Primary GRISELDA A [place] [id number] TR Insurance:AETNA HIDERDOB: [address] Number: [id number] Indian Medical Center [address]Ixi: [id number] Repository Date:9092-20-24TJ BOX (HP) [id number] [place], [place] [address]FO: 06/26/2018 Secondary NOT GIVENUNK [place] Insurance:SELF PAY [facility] Number: Effective Repository Date:2018-06-26 06/22/2018 JAMILA Primary GRISELDA A [place] [id number] TR Insurance:AETNA HIDERDOB: [address] Number: [id number] Indian Medical Center [address]Nvc: [id number] Repository Date:7712-92-48DH BOX () [id number] [place], [place] [address]CY: 06/22/2018 Secondary NOT GIVENUNK [place] Insurance:SELF PAY [facility] Number: Effective Repository Date:2018-06-08 06/22/2018 JAMILA Primary GRISELDA A [place] [id number] TR Insurance:AETNA HIDERDOB: [address] Number: [id number] Indian Medical Center [address]Vpt: [id number] Repository Date:5423-20-02GG BOX (HP) [id number] [place] [address]TH: 06/22/2018 Secondary NOT GIVENUNK [place] Insurance:SELF PAY [facility] Number: Effective Repository Date:2018-06-22 06/08/2018 JAMILA Primary GRISELDA A [place] [id number] TR Insurance:AETNA HIDERDOB: [address] Number: [id number] Indian Medical Center [address]Wxi: [id number] Repository Date:7851-34-07DO BOX (HP) 8[address]YC [place] [address]EV: 06/08/2018 Secondary NOT GIVENUNK [place] Insurance:SELF PAY [facility] Number: Effective Repository Date:2018-06-01 05/12/2018 JAMILA Primary GRISELDA A [place] [id number] TR Insurance:AETNA HIDERDOB: [address] Number: [id number] Indian Medical Center [address]Lzj: [id number] Repository Date:6658-00-09QG BOX (HP) [id number] [place] [address]IH: 05/12/2018 Secondary NOT GIVENUNK [place] Insurance:SELF PAY [facility] Number: Effective Repository Date:2018-05-12 05/12/2018 JAMILA Primary GRISELDA A [place] [id number] TR Insurance:AETNA HIDERDOB: [address] Number: [id number] Indian Medical Center [address]Kwv: [id number] Repository Date:4082-35-16XG BOX () [id number] [place] [address]BS: 05/12/2018 Secondary NOT GIVENUNK [place] Insurance:SELF PAY [facility] Number: Effective Repository Date:2018-05-12 05/12/2018 JAMILA Primary GRISELDA A [place] [id number] TR Insurance:AETNA HIDERDOB: [address] Number: [id number] [place] [address]Skp: [id number] Repository Date:7878-29-67WH BOX (CU) [id number] [place] [address]DL: 05/12/2018 Secondary NOT GIVENUNK [place] Insurance:SELF PAY [facility] Number: Effective Repository Date:2018-05-12 05/03/2018 JAMILA Primary GRISELDA A [place] [id number] Insurance:AETNA HIDERDOB: [facility] MCRPolicy Number: [id number]BP5NNLEffective Repository [place] [address]Vts: Date:5950-89-04JX [id number] [place] () [address]PC: 05/03/2018 Secondary NOT GIVENUNK [place] Insurance:SELF PAY [facility] Number: Effective Repository Date:2018-05-03 05/02/2018 JAMILA Primary GRISELDA A [place] [id number] Insurance:AETNA [facility]: [id number]NNLEffective Repository [place] [address]Guo: Date:9102-56-85VJ [id number] [place] () [address]BL: 05/02/2018 Secondary NOT GIVENUNK [place] Insurance:SELF PAY [facility] Number: Effective Repository Date:2018-04-26
== END ==
DX: S06.0X0A Concussion without loss of consciousness, initial encounter (principal)
CPT/HCPCS: 70450

== ENCOUNTER 2018-12-14 15:21 | Emergency (ER) | payer MEDICARE, SELFPAY ==
[2018-07-11 10:47] VITALS: BMI 22.6
[2018-12-14 15:23] VITALS: BP 138/65; PULSE 79; RESP 16; TEMP 36.7; O2SAT 94; BMI 24.0
--- NOTE | 2018-12-14 15:35 | EKG12_ITS ---
Test Reason : CHEST OTHER Blood Pressure : / mmHG Vent. Rate : 081 BPM Atrial Rate : 081 BPM P-R Int : 132 ms QRS Dur : 090 ms QT Int : 394 ms P-R-T Axes : 075 063 064 degrees QTc Int : 457 ms Normal sinus rhythm Normal ECG Confirmed by ALICJA BLAKE ([id number]), photograph editor HOWARD AKINS ([id number]) on 12/17/2018 1:55:10 PM Referred By: PAYTON Confirmed By:ALICJA BLAKE
--- NOTE | 2018-12-14 15:35 | CT_ITS ---
STUDY: CT BRAIN WITHOUT CONTRAST REASON FOR EXAM: Female, 63 years old. Status post fall 3 days ago RADIATION DOSAGE (If Supplied By Facility): CTDIvol = ( 60.81 ) mGy, DLP = ( 1044.28 ) mGycm TECHNIQUE: Transaxial CT imaging of the brain was performed without administration of intravenous contrast material. Individualized dose optimization techniques were used for this CT. COMPARISON: May 12, 2018 CT scan head FINDINGS: Normal soft tissue structures. Normal calvarium. There is mild cerebral atrophy with widening of the extra-axial spaces and ventricular dilatation. There are areas of decreased attenuation within the white matter tracts of the supratentorial brain, consistent with microvascular disease changes. There are small punctate calcifications of the basal ganglia which are seen in the aging brain as a normal variant. Normal brainstem. Is a stable focus of hyperdensity within the left side cerebellum. There are stable foci of low attenuation within the basal ganglia compatible with old lacunar infarcts. There is no intracranial hemorrhage. There are no findings of an acute ischemic infarction. Normal visualized paranasal sinuses. CT/Brain/Head without Contrast IMPRESSION: Subtle hyperdensity within the left side cerebellum stable since prior study suggesting possible calcification or other stable mass. No evidence of acute hemorrhage infarct or edema. Electronically Signed: Kristal Lay MD at 18:35 EDT Tel , Service support ,
--- NOTE | 2018-12-14 15:35 | CT_ITS ---
STUDY: CT CERVICAL SPINE WITHOUT CONTRAST REASON FOR EXAM: Female, 63 years old. Status post fall RADIATION DOSAGE (If Supplied By Facility): CTDIvol = ( 24.87 ) mGy, DLP = ( 494.15 ) mGycm TECHNIQUE: High resolution transaxial imaging was performed without contrast material. Sagittal and coronal images were reconstructed. Individualized dose optimization techniques were used for this CT. COMPARISON: None FINDINGS: Normal craniovertebral junction. There are degenerative changes of the anterior atlantoaxial articulation. Normal odontoid process. Normal cervical lordosis. Normal vertebral bodies and posterior osseous elements. C2-3: Normal endplates. Normal disc height and morphology. Normal central canal and intervertebral neuroforamina. C3-4: Normal endplates. Normal disc height and morphology. Normal central canal and intervertebral neuroforamina. C4-5: There is disc space narrowing broad disc osteophyte mild neural foramina narrowing no significant central stenosis C5-6: Normal endplates. Normal disc height and morphology. Normal central canal and intervertebral neuroforamina. C6-7: Normal endplates. Normal disc height and morphology. Normal central canal and intervertebral neuroforamina. C7-T1: There is anterior spondylosis. There is a large right pneumothorax. CT/Spine Cervical without Contras IMPRESSION: Degenerative change no visualized evidence of an acute fracture. Large right pneumothorax. Electronically Signed: Kristal Lay MD at 18:35 EDT Tel , Service support ,
--- NOTE | 2018-12-14 15:36 | CT_ITS ---
STUDY: CT ABDOMEN AND PELVIS WITH CONTRAST REASON FOR EXAM: Female, 63 years old. Status post fall 3 days ago RADIATION DOSAGE (If Supplied By Facility): CTDIvol = ( 13.63 ) mGy, DLP = ( 1163.46 ) mGycm TECHNIQUE: Transaxial images were obtained from the dome of the diaphragm to the symphysis pubis without oral contrast. 100 IV Isovue 300 was administered. Sagittal and coronal images were reconstructed. Individualized dose optimization techniques were used for this CT. COMPARISON: 03/26/2016 CT scan abdomen and pelvis FINDINGS: There is right lower lobe collapse consolidation and a sizable right pneumothorax. This is been described in the CT of the thoracic spine.. There is a well-circumscribed low attenuating cystic structure within the left hepatic lobe measuring 1.3 x 1.5 cm per Normal gallbladder and extrahepatic biliary system. Normal spleen. Normal pancreas. Normal bilateral adrenal glands. Normal right kidney. Normal left kidney. There is a small hiatal hernia. There mildly distended loops of small bowel. There is a relative decompressed appearance of most of the colon. There is non-visualization of the appendix. The aorta is partially calcified. Normal inferior vena cava. Normal retroperitoneum. Latter is over distended. Normal visualized uterus. There is a small umbilical hernia containing fat. There is degenerative change of the thoracolumbar spine. At the level of T11-T12 there is degenerative change similar to prior study. There is no evidence of acute loss of height or alignment. There is a minimal broad disc bulge L3-L4 L4-L5 with mild neural foramina narrowing. CT/Abdomen/Pelvis WITH Contrast IMPRESSION: Large right pneumothorax. Benign-appearing left hepatic cyst. No evidence of acute intra-abdominal injury, distended bladder recommend voiding or catheterization. Degenerative change of the lumbar spine. Electronically Signed: Kristal Lay MD at 18:33 EDT Tel , Service support ,
--- NOTE | 2018-12-14 15:36 | CT_ITS ---
STUDY: CT CHEST WITH CONTRAST REASON FOR EXAM: Female, 63 years old. Patient fell 10-12 feet from a tree stand, right-sided chest and back pain RADIATION DOSAGE (If Supplied By Facility): CTDIvol = ( 13.40 ) mGy, DLP = ( 1163.46 ) mGycm TECHNIQUE: Transaxial imaging was performed following intravenous administration of 100ML IV Isovue 300. Multiplanar coronal and sagittal images were reformatted. Individualized dose optimization techniques were used for this CT. COMPARISON: None. FINDINGS: There is a large volume pneumothorax of the right chest with significant volume loss of the right lung. There are rib fractures involving the right sixth, seventh posterior ribs without significant displacement. Left lung is normally inflated with mild degree of central lobular emphysema. Normal heart and pericardium. There are multiple small lymph nodes within the mediastinum, which are normal in size and morphology most compatible with reactive lymph hyperplasia. Normal hilar regions. Normal enhanced pulmonary arteries. Normal aorta arch and descending thoracic aorta. There are degenerative changes of the thoracic spine. No demonstrated compression fracture. There is a simple cyst of the left hepatic lobe. CT/Chest WITH Contrast IMPRESSION: 1. Large volume right pneumothorax. No tracheal deviation. 2. Significant compression/atelectasis of the right lung. 3. Posterior right sixth and seventh rib fractures. Electronically Signed: Barrera Rosales MD at 21:03 EDT , Service support ,
--- NOTE | 2018-12-14 15:38 | CT_ITS ---
STUDY: CT LUMBAR SPINE WITHOUT CONTRAST REASON FOR EXAM: Female, 63 years old. Status post fall RADIATION DOSAGE (If Supplied By Facility): CTDIvol = ( 29.73 ) mGy, DLP = ( 869.30 ) mGycm TECHNIQUE: The patient was scanned in a multi detector CT scanner. High resolution transaxial imaging was performed. Images were obtained from base to T12 to sacrum. Sagittal and coronal images were reconstructed. Individualized dose optimization techniques were used for this CT. COMPARISON: CT scan abdomen and pelvis 03/26/2016, CT scan abdomen and pelvis December 24, 2018 FINDINGS: Normal lumbar lordosis. There is no substantial scoliosis. There is mild multilevel spondylosis. L1-2: Normal endplates. Normal disc height and morphology. Normal bilateral facet joints. Normal central canal and bilateral lateral recesses. Normal bilateral intervertebral neural foramina. L2-3: Minimal broad disc bulge with mild neural foramina narrowing minimal central stenosis. There is facet arthropathy with mild ligamentum flavum hypertrophy. L3-4: There is a broad disc bulge facet arthropathy and minimal ligamentum flavum hypertrophy. L4-5: There is a broad disc bulge, mild neural foramina narrowing facet arthropathy ligamentum flavum hypertrophy no significant central stenosis. L5-S1: There is a broad disc bulge mild neural foramina narrowing no significant central stenosis. Normal visualized paraspinous soft tissue structures. CT/Spine Lumbar without Contrast IMPRESSION: Degenerative change no visualized evidence of an acute fracture. Electronically Signed: Kristal Lay MD at 18:35 EDT Tel , Service support ,
--- NOTE | 2018-12-14 15:38 | CT_ITS ---
STUDY: CT THORACIC SPINE WITHOUT CONTRAST REASON FOR EXAM: Female, 63 years old. Status post fall 3 days ago RADIATION DOSAGE (If Supplied By Facility): CTDIvol = ( 33.15 ) mGy, DLP = ( 1292.73 ) mGycm TECHNIQUE: The patient was scanned in a multi detector CT scanner. High resolution imaging was performed. Images were obtained from C7 to L1. Sagittal and coronal images were reconstructed. Individualized dose optimization techniques were used for this CT. COMPARISON: May 03, 2018 lateral view chest FINDINGS: There is multilevel endplate spondylosis of the cervical spine. Normal kyphosis of the thoracic spine. There is no substantial scoliosis. The bones are osteopenic there is persistent degenerative change and increased sclerosis at the level of L1. At the level T12-L1 there is disc space narrowing spondylosis. There is no apparent acute loss of height or alignment. There is mild multilevel disc space narrowing. The visualized large right-sided pneumothorax with right lower lobe consolidation collapse. There is posterior rib fracture right rib 10, right rib 9, right posterior rib 8, right posterior ribs 7, There is atherosclerotic disease of the aorta. CT/Spine Thoracic without Contras IMPRESSION: Multilevel posterior right rib fractures. Right lower lobe consolidation collapse. Large right pneumothorax. Pneumothorax has been called to Dr. Velasquez on a stat basis regarding the chest x-ray. There is multilevel degenerative change of the thoracic spine without evidence of an acute fracture. Electronically Signed: Kristal Lay MD at 18:33 EDT Tel , Service support ,
--- NOTE | 2018-12-14 15:41 | ED.VISSUMM ---
- ER Visit Summary Date of Service: 12/14/18 Chief Complaint: Right rib and chest pain/back pain History of Present Illness: The patient is a 63 F who presents for injuries after falling out of a tree stand 2 days ago. Patient had had diarrhea for 2 weeks and her doctor prescribed her Lomotil. Patient took 1 dose of it and then had a hallucination that her told her to meet him at the deer stand. Patient attempted to climb up into the tree stand and the ladder broke. She fell approximately 10 to 12 feet. She denies loss of consciousness. She has had right-sided chest and back pain since as well as a cut to the scalp and bruising to the left upper extremity. Patient thought she could deal with the injuries at home and states she was starting to feel better, however today she coughed and then had severe chest and back pain. Pain is worse with movement. Patient is most comfortable if laying on her stomach. Patient does have COPD and is a smoker. She is on a baby aspirin daily. She did hit her head but is currently not complaining of any head or neck pain. Physical Examination: Vital signs: afebrile, hemodynamically stable, no hypoxia on room air General: well nourished, well developed, laying in a supine position, appears uncomfortable Skin: warm, dry, no rash, no pallor, significant contusions and abrasions to the left upper extremity from the elbow to the wrist and fingers HEENT: normocephalic and atraumatic unable to visualize a scalp laceration; PERRL, EOMI, moist mucous membranes no maxillofacial trauma Cardiovascular: regular rate and rhythm without murmurs, no peripheral edema, 2+ pulses all distal extremities Respiratory: Able to speak in full sentences, mild tachypnea, diminished lung sounds with adventitious sounds noted on the right middle lobe, left side full and clear Abdominal: Abdomen is soft, nontender with normoactive bowel sounds, no guarding or rebound, no masses MSK: Moves all extremities, no deformities, normal strength, no tenderness or deformities to the left upper extremity, full active range of motion of all joints Neuro: Awake and alert, oriented ?4. No facial droop, sensation and motor function intact and symmetric Test Results: Abnormal Lab Results 12/14/18 12/14/18 12/14/18 15:50 15:50 15:50 WBC 7.3 RBC 4.88 Hgb 14.0 Hct 41.9 MCV 85.9 MCH 28.7 MCHC 33.4 RDW 13.6 RDW Differential 42.0 Plt Count 241 MPV 9.6 Immature Gran % (Auto) 0.400 Neut % (Auto) 68.6 Lymph % (Auto) 20.0 [place] % (Auto) 9.9 Eos % (Auto) 0.8 Baso % (Auto) 0.3 Absolute Neuts (auto) 5.0 Absolute Lymphs (auto) 1.46 Total Counted Not Reportable PT 13.1 INR 1.0 APTT 27.8 Sodium 145 Potassium 3.6 Chloride 112 H Carbon Dioxide 27.0 Anion Gap 6 BUN 11 Creatinine 0.61 Estim Creat Clear Calc 79.40 Est GFR (MDRD) Af Amer 126 Est GFR (MDRD) Non-Af 104 BUN/Creatinine Ratio 18.0 Glucose 83 Calcium 8.4 L Total Bilirubin 0.50 Direct Bilirubin 0.12 AST 22 ALT 35 Alkaline Phosphatase 119 H Total Protein 6.9 Albumin 3.7 Globulin 3.2 Clinical Impression(s) from Imaging Studies Brain CT 12/14/18 15:35 IMPRESSION: Subtle hyperdensity within the left side cerebellum stable since prior study suggesting possible calcification or other stable mass. No evidence of acute hemorrhage infarct or edema. Electronically Signed: Kristal Lay MD at 18:35 EDT Tel , Service support , Cervical Spine CT 12/14/18 15:35 IMPRESSION: Degenerative change no visualized evidence of an acute fracture. Large right pneumothorax. Electronically Signed: Kristal Lay MD at 18:35 EDT Tel , Service support , Abdomen/Pelvis CT 12/14/18 15:36 IMPRESSION: Large right pneumothorax. Benign-appearing left hepatic cyst. No evidence of acute intra-abdominal injury, distended bladder recommend voiding or catheterization. Degenerative change of the lumbar spine. Electronically Signed: Kristal Lay MD at 18:33 EDT Tel , Service support , Lumbar Spine CT 12/14/18 15:38 IMPRESSION: Degenerative change no visualized evidence of an acute fracture. Electronically Signed: Kristal Lay MD at 18:35 EDT Tel , Service support , Thoracic Spine CT 12/14/18 15:38 IMPRESSION: Multilevel posterior right rib fractures. Right lower lobe consolidation collapse. Large right pneumothorax. Pneumothorax has been called to Dr. Velasquez on a stat basis regarding the chest x-ray. There is multilevel degenerative change of the thoracic spine without evidence of an acute fracture. Electronically Signed: Kristal Lay MD at 18:33 EDT Tel , Service support , ADDENDUM: 12/14/18 1840 Chest X-Ray 12/14/18 18:31 IMPRESSION: Persistent pneumothorax much reduced since prior. Status post right-sided chest tube. Right lower lobe consolidation collapse. Electronically Signed: Kristal Lay MD at 19:01 EDT Tel , Service support , Medications Given Discontinued Medications Diphtheria/Tetanus/Acell Pertussis (Adacel) 0.5 ml IM .ONCE ONE Stop: 12/14/18 15:36 Last Admin: 12/14/18 16:01 Dose: 0.5 ml Fentanyl Citrate (Sublimaze (100mcg Ampule)) 50 mcg IV X1 ONE Stop: 12/14/18 15:36 Last Admin: 12/14/18 15:59 Dose: 50 mcg Fentanyl Citrate (Sublimaze (100mcg Ampule)) 50 mcg IV X1 ONE Stop: 12/14/18 17:18 Last Admin: 12/14/18 17:39 Dose: 50 mcg Fentanyl Citrate (Sublimaze (100mcg Ampule)) 100 mcg IV X1 ONE Stop: 12/14/18 18:28 Last Admin: 12/14/18 18:28 Dose: 100 mcg Hydromorphone HCl (Dilaudid Inj) 0.5 mg IV X1 ONE Stop: 12/14/18 18:54 Last Admin: 12/14/18 19:05 Dose: 0.5 mg Sodium Chloride () 1,000 mls @ 999 mls/hr IV .Q1H1M ONE Stop: 12/14/18 16:35 Last Admin: 12/14/18 15:56 Dose: 999 mls/hr Ondansetron HCl (Zofran) 4 mg IV X1 ONE Stop: 12/14/18 15:36 Last Admin: 12/14/18 15:58 Dose: 4 mg Emergency Department Course and Treatment: Patient's lung exam is concerning for pulmonary injury on the right side, with concern for pneumothorax. Patient at this time is hemodynamically stable, has no hypoxia and is in no significant distress, with no indication of tension pneumo. Thus needle decompression was not performed. A chest x-ray did show a moderate pneumothorax. EKG showed sinus rhythm without ischemia or ectopy. Labs were performed. Given the mechanism of injury and significant injuries on physical exam, CT of the head, spine, chest abdomen and pelvis was performed. No intracranial hemorrhage. No fractures or dislocations noted of the C-spine, thoracic or lumbar spine, and no intra-abdominal pathology noted. The right pneumothorax was redemonstrated and patient also has a right pulmonary contusion and multiple posterior right-sided rib fractures. Patient required several doses of fentanyl and Dilaudid for pain control. The pneumothorax was treated with chest tube placement, using a small diameter pneumothorax catheter. Risks and benefits of the procedure was discussed with the patient and written consent was obtained. A timeout was performed. The fourth intercostal space in the anterior axillary line was identified. The area was prepped with chlorhexidine. Using sterile technique, the right chest was sterilely draped. The site was reconfirmed. Lidocaine 1% without epinephrine was locally infiltrated down to the ribs for anesthesia. A brisa was made with a scalpel and the catheter was introduced over the superior rim of the rib until air was easily aspirated. The catheter was then connected to the Heimlich valve, with passage of air noted through the Heimlich valve. This was connected to an chest tube atrium and hooked to low continuous suction. A repeat chest x-ray showed great improvement in the pneumothorax. No complications to the procedure. Patient tolerated it well. It was discussed with Dr. Ibrahim, who did not feel patient was appropriate for admission at this facility due to the complicated traumatic injuries with potential for decompensation. It was felt patient would be more appropriately cared for at a trauma specialty facility. Patient requested [facility]. Patient was discussed with Dr. Townsend at the [facility] emergency department and was transferred to ED to ED. Patient remained hemodynamically stable and was given pain medication as needed for her right sided chest and rib pain. Critical care time of 40 minutes, excluding time for procedures that were separately billable, for initial emergent evaluation, coronation of care, initial stabilization, frequent re-evaluations, discussion with specialists, and documentation. Treatment Plan: [] Disposition: Transfer to [facility] emergency department, Dr. Cheryl Townsend Impression: Right-sided pneumothorax status post chest tube placement, right pulmonary contusion, multiple right posterior rib fractures, left upper extremity contusions This note was generated with [employer] dictation software. It may contain incorrect words, spelling, and punctuation that were not noted in review of the chart prior to signing ED Disposition - Plan for ED Patient: Disposition: [facility] Referrals: Angel Perez MD [Primary Care Provider] -
--- NOTE | 2018-12-14 15:44 | ED.DCSUM_ITS ---
- ER Visit Summary Date of Service: 12/14/18 Chief Complaint: Right rib and chest pain/back pain History of Present Illness: The patient is a 63 F who presents for injuries after falling out of a tree stand 2 days ago. Patient had had diarrhea for 2 weeks and her doctor prescribed her Lomotil. Patient took 1 dose of it and then had a hallucination that her told her to meet him at the [place]. Patient attempted to climb up into the tree stand and the ladder broke. She fell approximately 10 to 12 feet. She denies loss of consciousness. She has had right-sided chest and back pain since as well as a cut to the scalp and bruising to the left upper extremity. Patient thought she could deal with the injuries at home and states she was starting to feel better, however today she coughed and then had severe chest and back pain. Pain is worse with movement. Patient is most comfortable if laying on her stomach. Patient does have COPD and is a smoker. She is on a baby aspirin daily. She did hit her head but is currently not complaining of any head or neck pain. Physical Examination: Vital signs: afebrile, hemodynamically stable, no hypoxia on room air General: well nourished, well developed, laying in a supine position, appears uncomfortable Skin: warm, dry, no rash, no pallor, significant contusions and abrasions to the left upper extremity from the elbow to the wrist and fingers HEENT: normocephalic and atraumatic unable to visualize a scalp laceration; PERRL, EOMI, moist mucous membranes no maxillofacial trauma Cardiovascular: regular rate and rhythm without murmurs, no peripheral edema, 2+ pulses all distal extremities Respiratory: Able to speak in full sentences, mild tachypnea, diminished lung sounds with adventitious sounds noted on the right middle lobe, left side full and clear Abdominal: Abdomen is soft, nontender with normoactive bowel sounds, no guarding or rebound, no masses MSK: Moves all extremities, no deformities, normal strength, no tenderness or deformities to the left upper extremity, full active range of motion of all j oints Neuro: Awake and alert, oriented ?4. No facial droop, sensation and motor function intact and symmetric Test Results: Abnormal Lab Results 12/14/18 12/14/18 12/14/18 15:50 15:50 15:50 WBC 7.3 RBC 4.88 Hgb 14.0 Hct 41.9 MCV 85.9 MCH 28.7 MCHC 33.4 RDW 13.6 RDW Differential 42.0 Plt Count 241 MPV 9.6 Immature Gran % (Auto) 0.400 Neut % (Auto) 68.6 Lymph % (Auto) 20.0 [place] % (Auto) 9.9 Eos % (Auto) 0.8 Baso % (Auto) 0.3 Absolute Neuts (auto) 5.0 Absolute Lymphs (auto) 1.46 Total Counted Not Reportable PT 13.1 INR 1.0 APTT 27.8 Sodium 145 Potassium 3.6 Chloride 112 H Carbon Dioxide 27.0 Anion Gap 6 BUN 11 Creatinine 0.61 Estim Creat Clear Calc 79.40 Est GFR (MDRD) Af Amer 126 Est GFR (MDRD) Non-Af 104 BUN/Creatinine Ratio 18.0 Glucose 83 Calcium 8.4 L Total Bilirubin 0.50 Direct Bilirubin 0.12 AST 22 ALT 35 Alkaline Phosphatase 119 H Total Protein 6.9 Albumin 3.7 Globulin 3.2 Clinical Impression(s) from Imaging Studies Brain CT 12/14/18 15:35 IMPRESSION: Subtle hyperdensity within the left side cerebellum stable since prior study suggesting possible calcification or other stable mass. No evidence of acute hemorrhage infarct or edema. Electronically Signed: Kristal Lay MD at 18:35 EDT Tel , Service support , Cervical Spine CT 12/14/18 15:35 IMPRESSION: Degenerative change no visualized evidence of an acute fracture. Large right pneumothorax. Electronically Signed: Kristal Lay MD at 18:35 EDT Tel , Service support , Abdomen/Pelvis CT 12/14/18 15:36 IMPRESSION: Large right pneumothorax. Benign-appearing left hepatic cyst. No evidence of acute intra-abdominal injury, distended bladder recommend voiding or catheterization. Degenerative change of the lumbar spine. Electronically Signed: Kristal Lay MD at 18:33 EDT Tel , Service support , Lumbar Spine CT 12/14/18 15:38 IMPRESSION: Degenerative change no visualized evidence of an acute fracture. Electronically Signed: Kristal Lay MD at 18:35 EDT Tel , Service support , Thoracic Spine CT 12/14/18 15:38 IMPRESSION: Multilevel posterior right rib fractures. Right lower lobe consolidation collapse. Large right pneumothorax. Pneumothorax has been called to Dr. Velasquez on a stat basis regarding the chest x-ray. There is multilevel degenerative change of the thoracic spine without evidence of an acute fracture. Electronically Signed: Kristal Lay MD at 18:33 EDT Tel , Service support , ADDENDUM: 12/14/18 1840 Chest X-Ray 12/14/18 18:31 IMPRESSION: Persistent pneumothorax much reduced since prior. Status post right-sided chest tube. Right lower lobe consolidation collapse. Electronically Signed: Kristal Lay MD at 19:01 EDT Tel , Service support , Medications Given Discontinued Medications Diphtheria/Tetanus/Acell Pertussis (Adacel) 0.5 ml IM .ONCE ONE Stop: 12/14/18 15:36 Last Admin: 12/14/18 16:01 Dose: 0.5 ml Fentanyl Citrate (Sublimaze (100mcg Ampule)) 50 mcg IV X1 ONE Stop: 12/14/18 15:36 Last Admin: 12/14/18 15:59 Dose: 50 mcg Fentanyl Citrate (Sublimaze (100mcg Ampule)) 50 mcg IV X1 ONE Stop: 12/14/18 17:18 Last Admin: 12/14/18 17:39 Dose: 50 mcg Fentanyl Citrate (Sublimaze (100mcg Ampule)) 100 mcg IV X1 ONE Stop: 12/14/18 18:28 Last Admin: 12/14/18 18:28 Dose: 100 mcg Hydromorphone HCl (Dilaudid Inj) 0.5 mg IV X1 ONE Stop: 12/14/18 18:54 Last Admin: 12/14/18 19:05 Dose: 0.5 mg Sodium Chloride () 1,000 mls @ 999 mls/hr IV .Q1H1M ONE Stop: 12/14/18 16:35 Last Admin: 12/14/18 15:56 Dose: 999 mls/hr Ondansetron HCl (Zofran) 4 mg IV X1 ONE Stop: 12/14/18 15:36 Last Admin: 12/14/18 15:58 Dose: 4 mg Emergency Department Course and Treatment: Patient's lung exam is concerning for pulmonary injury on the right side, with concern for pneumothorax. Patient at this time is hemodynamically stable, has no hypoxia and is in no significant distress, with no indication of tension pneumo. Thus needle decompression was not performed. A chest x-ray did show a moderate pneumothorax. EKG showed sinus rhythm without ischemia or ectopy. Labs were performed. Given the mechanism of injury and significant injuries on physical exam, CT of the head, spine, chest abdomen and pelvis was performed. No intracranial hemorrhage. No fractures or dislocations noted of the C-spine, thoracic or lumbar spine, and no intra-abdominal pathology noted. The right pneumothorax was redemonstrated and patient also has a right pulmonary contusion and multiple posterior right-sided rib fractures. Patient required several doses of fentanyl and Dilaudid for pain control. The pneumothorax was treated with chest tube placement, using a small diameter pneumothorax catheter. Risks and benefits of the procedure was discussed with the patient and written consent was obtained. A timeout was performed. The fourth intercostal space in the anterior axillary line was identified. The area was prepped with chlorhexidine. Using sterile technique, the right chest was sterilely draped. The site was reconfirmed. Lidocaine 1% without epinephrine was locally infiltrated down to the ribs for anesthesia. A brisa was made with a scalpel and the catheter was introduced over the superior rim of the rib until air was easily aspirated. The catheter was then connected to the Heimlich valve, with passage of air noted through the Heimlich valve. This was connected to an chest tube atrium and hooked to low continuous suction. A repeat chest x-ray showed great improvement in the pneumothorax. No complications to the procedure. Patient tolerated it well. It was discussed with Dr. Ibrahim, who did not feel patient was appropriate for admission at this facility due to the complicated traumatic injuries with potential for decompensation. It was felt patient would be more appropriately cared for at a trauma specialty facility. Patient requested [facility]. Patient was discussed with Dr. Townsend at the [facility] emergency department and was transferred to ED to ED. Patient remained hemodynamically stable and was given pain medication as needed for her right sided chest and rib pain. Critical care time of 40 minutes, excluding time for procedures that were separately billable, for initial emergent evaluation, coronation of care, initial stabilization, frequent re-evaluations, discussion with specialists, and documentation. Treatment Plan: [] Disposition: Transfer to [facility] emergency department, Dr. Cheryl Townsend Impression: Right-sided pneumothorax status post chest tube placement, right pulmonary contusion, multiple right posterior rib fractures, left upper extremity contusions This note was generated with [employer] dictation software. It may contain incorrect words, spelling, and punctuation that were not noted in review of the chart prior to signing ED Disposition - Plan for ED Patient: Disposition: [facility] Referrals: Angel Perez MD [Primary Care Provider] -
--- NOTE | 2018-12-14 15:45 | RAD_ITS ---
STUDY: X-RAY CHEST REASON FOR EXAM: Female, 63 years old. Status post fall TECHNIQUE: Single AP portable view of the chest. COMPARISON: May 12, 2018 chest x-ray FINDINGS: There is a focal opacity within the right midlung zone. There is a moderate right pneumothorax. There is a suggestion of a fracture right rib 9 partially visualized. Normal size heart. Normal mediastinum and linnette. Normal visualized pulmonary arteries. Normal visualized aortic arch and descending thoracic aorta. Normal visualized thoracic spine. Normal visualized ribs, clavicles, and shoulders. There is no demonstrated abnormality of the visualized soft tissue structures of the upper abdomen. RAD/Chest 1 View (Portable) IMPRESSION: Moderate pneumothorax. Pulmonary contusion. N.B. : The above information has been verbally conveyed by Kristal Lay MD to Dr. Janny Velasquez MD, on 12/14/2018 17:09:52 (ET). Electronically Signed: Kristal Lay MD at 17:01 EDT Tel , Service support ,
[2018-12-14] MEDS: 0.9% Normal Saline 1,000 ML 999 ML IV (15:56)
[2018-12-14] MEDS: Ondansetron 4 MG/2 ML Vial IV (15:58)
[2018-12-14] MEDS: fentaNYL 100 MCG/2 ML Ampul 50 MCG IV ×2 (15:59→17:39)
[2018-12-14] MEDS: Diphth,Pertuss(Acell),Tet Vac 0.5 ML Vial IM (16:01)
[2018-12-14 16:10] VITALS: O2SAT 94
[2018-12-14 16:23] LABS: Absolute Lymphocyte Count 1.46 X10^3/ul (0.83-4.51); Basophil# 0.02 X10^3/uL; Basophil% 0.3 % (0-1); Eosinophil# 0.06 X10^3/uL; Eosinophils% 0.8 % (0-5); Hematocrit 41.9 % (37-47); Lymphocyte # 1.46 X10^3/ul (4.0); Mean Corp Hgb Conc 33.4 g/gl (32-36); Mean Corpuscular Hgb 28.7 pg (27.0-32.0); Mean Corpuscular Volume 85.9 fL (81-99); Mean Platelet Vol. 9.6 fl (6.2-12.0); Monocyte# 0.72 X10^3/uL; Monocyte% 9.9 % (0-10); Neutrophil % 68.6 % (47-70); Platelet Count 241 K/mm3 (150-450); RBC Distribution Width CV 13.6 % (11.6-14.6); Red Blood Count 4.88 M/mm3 (4.2-5.4); White Blood Count 7.3 K/mm3 (4.4-11.0)
[2018-12-14 16:29] LABS: POSITIVE COUNT NO; POSITIVE DIFFERENTIAL NO; POSITIVE MORPHOLOGY NO
[2018-12-14 16:33] LABS: AST(SGOT) 22 U/L (15-37); Alanine Aminotransfer ALT/SGPT 35 U/L (13-56); Albumin, Serum 3.7 g/dL (3.2-5.0); Alkaline Phosphatase 119 U/L (45-117); Anion Gap 6 (5-15); BUN 11 mg/dL (7-18); Bilirubin, Direct 0.12 mg/dL (0.00-0.30); Calcium,Total 8.4 mg/dL (8.5-10.1); Chloride 112 mmol/L (98-107); Creatinine, Serum 0.61 mg/dL (0.55-1.02); EST Glomerular Filtration Rate 104 mL/min (>60); Est Glom Filt Rate - Afr Amer 126 mL/min (>60); Globulin 3.2 g/dL (2.2-4.2); Glucose 83 mg/dL (74-106); Potassium 3.6 mmol/L (3.5-5.1); Protein, Total 6.9 g/dL (6.4-8.2); Sodium Level 145 mmol/L (136-145)
[2018-12-14 16:43] LABS: Partial Thromboplast Time 27.8 Seconds (24.1-36.2); Prothrombin Time (Protime)PT. 13.1 SECONDS (11.7-14.9)
[2018-12-14 17:27] VITALS: BP 150/72; PULSE 74; RESP 18; O2SAT 99
[2018-12-14] MEDS: fentaNYL 100 MCG/2 ML Ampul IV (18:28)
--- NOTE | 2018-12-14 18:31 | RAD_ITS ---
STUDY: X-RAY CHEST REASON FOR EXAM: Female, 63 years old. Chest tube placement TECHNIQUE: Single AP portable view of the chest. COMPARISON: December 14, 2018 x-ray FINDINGS: And placement of a right side chest tube. The pneumothorax has reduced. There is still right lower lobe atelectasis and/or partial consolidation. A small portion of the Pneumothorax is also seen apically and inferiorly. There is mild cardiac enlargement. Normal mediastinum and linnette. Normal visualized pulmonary arteries. Normal visualized aortic arch and descending thoracic aorta. Normal visualized thoracic spine. Normal visualized ribs, clavicles, and shoulders. There is no demonstrated abnormality of the visualized soft tissue structures of the upper abdomen. RAD/Chest 1 View (Portable) IMPRESSION: Persistent pneumothorax much reduced since prior. Status post right-sided chest tube. Right lower lobe consolidation collapse. Electronically Signed: Kristal Lay MD at 19:01 EDT Tel , Service support ,
[2018-12-14 19:03] VITALS: BP 138/67; PULSE 78; RESP 19; O2SAT 95
[2018-12-14] MEDS: HYDROmorphone 0.5 MG/0.5 ML SYRINGE IV ×2 (19:05→21:40)
[2018-12-14 19:43] VITALS: BMI 24.0
--- NOTE | 2018-12-14 20:35 | PCM.CONS.GEN ---
Reason for Consult Date of Consultation: 12/14/18 History of Present Illness: The patient is a 63 year old F presents to the ER due to increased right chest pain, shortness of breath, pain with breathing. Patient states 2 days ago she did fall from a deer stand about 10 to 12 feet in the air. Patient states prior to that she was having diarrhea and got Lomotil from her PCP. Patient laid down to take a nap and then she states next thing she remembers maybe something about meeting her at the tree stand. And then all the patient remembers is after she fell looking up at the [place]. Patient states she was having shortness of breath as well as pain with breathing and pain in her right chest and it has gotten worse over the 2 days since she came to the ER. Patient did have a large right pneumothorax per continues chest tube was placed by the ER which did resolve most of the pneumothorax however there is still an apical pneumothorax. Past Medical History Past Medical History (Chronic Problems): Chronic Problems (Last Reviewed 07/11/18 @ 11:01 by CHANDA Vallejo) Nicotine dependence (Chronic) Medical History: Medical History (Last Reviewed 07/11/18 @ 11:01 by Mahi Hsu NP-C) Depression F32.9 Hypercholesterolemia E78.00 Skin cancer C44.90 Stroke I63.9 Allergies atropine [From Lomotil] Allergy (Verified 12/14/18 15:22) Other codeine Allergy (Verified 07/11/18 10:49) Shortness of breath diphenoxylate [From Lomotil] Allergy (Verified 12/14/18 15:22) Other latex Adverse Reaction (Verified 07/11/18 10:49) Rash Home Medications: Ambulatory Orders Medication Instructions Recorded RX: Aspirin [Adult Low Dose 81 mg PO DAILY 03/26/16 Aspirin EC] RX: Albuterol IH (ProAir) [Proair 1 - 2 puff INHALATION Q4H PRN PRN 05/12/18 Hfa] #1 inhaler sertraline 100 mg tablet 100 mg PO DAILY 06/08/18 RX: Multivitamins,Ther W-Minerals 1 tablet PO DAILYCM 12/14/18 [Multivitamin With Minerals] Simvastatin [Zocor] 80 mg PO QHS 12/14/18 Umeclidinium Brm/Vilanterol Tr 1 inh INHALATION Q24H 12/14/18 [Anoro Ellipta] Surgical History: Surgical History (Last Reviewed 07/11/18 @ 11:01 by CHANDA Vallejo) History of appendectomy Z98.890, Z90.49 Psychiatric History: No pertinent psych hx 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 Smoking Status: Current every day smoker Tobacco Use: Cigarettes - *Family History Maternal Family History: Family History (Last Reviewed 07/11/18 @ 11:01 by CHANDA Vallejo) Sister Breast cancer History Items: No pertinent history Review of Systems Constitutional: Denies: Anorexia, Chills Eyes: Denies: Blurred vision HEENT: Reports: Difficulty Hearing - Patient seated states her right ear seems like it is clogged Cardiovascular: Reports: Chest Pain - Right-sided Respiratory: Reports: Pleuritic Pain, Shortness of Breath Gastrointestinal: Denies: Abdominal Pain, Nausea, Vomiting Genitourinary: Denies: Dysuria Skin: Reports: - - Patient does have ecchymosis to the left medial forearm Neurological: Denies: Difficulty swallowing Psychiatric: Denies: Anxiety, Depression Hematologic/ Lymphatic: Denies: Easy Bleeding - Physical Exam General: Alert, Oriented x3, Cooperative, No apparent distress HEENT: Atraumatic Lungs: Clear to auscultation Cardiovascular: Regular rate Abdomen: Soft, Non Tender, Non-Distended Extremities: No clubbing, No cyanosis, No edema, - - Ecchymosis to the left medial forearm Skin: - - Ecchymosis left medial forearm Neurological: Cranial nerves II-XII grossly intact Psych/Mental Status: Normal Affect Vital Signs Temp Pulse Resp BP Pulse Ox 98.1 F 78 19 H 138/67 H 95 12/14/18 15:23 12/14/18 19:03 12/14/18 19:03 12/14/18 19:03 12/14/18 19:03 Oxygen Delivery Method Room Air Weight: 140 lb Body Mass Index (BMI) 24.0 Laboratory Tests Past 24 Hrs 12/14/18 12/14/18 12/14/18 15:50 15:50 15:50 WBC 7.3 RBC 4.88 Hgb 14.0 Hct 41.9 MCV 85.9 MCH 28.7 MCHC 33.4 RDW 13.6 RDW Differential 42.0 Plt Count 241 MPV 9.6 Immature Gran % (Auto) 0.400 Neut % (Auto) 68.6 Lymph % (Auto) 20.0 [place] % (Auto) 9.9 Eos % (Auto) 0.8 Baso % (Auto) 0.3 Absolute Neuts (auto) 5.0 Absolute Lymphs (auto) 1.46 Total Counted Not Reportable PT 13.1 INR 1.0 APTT 27.8 Sodium 145 Potassium 3.6 Chloride 112 H Carbon Dioxide 27.0 Anion Gap 6 BUN 11 Creatinine 0.61 Estim Creat Clear Calc 79.40 Est GFR (MDRD) Af Amer 126 Est GFR (MDRD) Non-Af 104 BUN/Creatinine Ratio 18.0 Glucose 83 Calcium 8.4 L Total Bilirubin 0.50 Direct Bilirubin 0.12 AST 22 ALT 35 Alkaline Phosphatase 119 H Total Protein 6.9 Albumin 3.7 Globulin 3.2 Assessment/Plan All Active Problems (Last Reviewed 07/11/18 @ 11:01 by Mahi Hsu, AGATA-C) Acute encephalopathy (Acute) Alcohol dependence (Acute) Pancreatitis, acute (Acute) 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 Due to patient's residual pneumothorax after chest tube recommend patient be transferred to a trauma center with cardiothoracic available for further chest tube management and can be closely monitored for her lung contusion. Patient is agreeable to plan. Plan is transfer to [facility]. Kelsey Ibrahim M.D. Pager: [phone] [facility] [address] [place] [address], [facility], [address] [place] [id number] Office: [phone] Code Visit Office Visits / Consults: [id number] OP Consult L2
--- NOTE | 2018-12-14 20:40 | CON.PCM_ITS ---
Reason for Consult Date of Consultation: 12/14/18 History of Present Illness: The patient is a 63 year old F presents to the ER due to increased right chest pain, shortness of breath, pain with breathing. Patient states 2 days ago she did fall from a deer stand about 10 to 12 feet in the air. Patient states prior to that she was having diarrhea and got Lomotil from her PCP. Patient laid down to take a nap and then she states next thing she remembers maybe something about meeting her at the tree stand. And then all the patient remembers is after she fell looking [place] at the [place]. Patient states she was having shortness of breath as well as pain with breathing and pain in her right chest and it has gotten worse over the 2 days since she came to the ER. Patient did have a large right pneumothorax per continues chest tube was placed by the ER which did resolve most of the pneumothorax however there is still an apical pneumothorax. Past Medical History Past Medical History (Chronic Problems): Chronic Problems (Last Reviewed 07/11/18 @ 11:01 by CHANDA Vallejo) Nicotine dependence (Chronic) Medical History: Medical History (Last Reviewed 07/11/18 @ 11:01 by Mahi Hsu NP-C) Depression F32.9 Hypercholesterolemia E78.00 Skin cancer C44.90 Stroke I63.9 Allergies atropine [From Lomotil] Allergy (Verified 12/14/18 15:22) Other codeine Allergy (Verified 07/11/18 10:49) Shortness of breath diphenoxylate [From Lomotil] Allergy (Verified 12/14/18 15:22) Other latex Adverse Reaction (Verified 07/11/18 10:49) Rash Home Medications: Ambulatory Orders Medication Instructions Recorded RX: Aspirin [Adult Low Dose 81 mg PO DAILY 03/26/16 Aspirin EC] RX: Albuterol IH (ProAir) [Proair 1 - 2 puff INHALATION Q4H PRN PRN 05/12/18 Hfa] #1 inhaler sertraline 100 mg tablet 100 mg PO DAILY 06/08/18 RX: Multivitamins,Ther W-Minerals 1 tablet PO DAILYCM 12/14/18 [Multivitamin With Minerals] Simvastatin [Zocor] 80 mg PO QHS 12/14/18 Umeclidinium Brm/Vilanterol Tr 1 inh INHALATION Q24H 12/14/18 [Anoro Ellipta] Surgical History: Surgical History (Last Reviewed 07/11/18 @ 11:01 by CHANDA Vallejo) History of appendectomy Z98.890, Z90.49 Psychiatric History: No pertinent psych hx LEAD SYSTEMS ARCHITECT History: No pertinent LEAD SYSTEMS ARCHITECT history Smoking Status: Current every day smoker Tobacco Use: Cigarettes - *Family History Maternal Family History: Family History (Last Reviewed 07/11/18 @ 11:01 by CHANDA Vallejo) Sister Breast cancer History Items: No pertinent history Review of Systems Constitutional: Denies: Anorexia, Chills Eyes: Denies: Blurred vision HEENT: Reports: Difficulty Hearing - Patient seated states her right ear seems like it is clogged Cardiovascular: Reports: Chest Pain - Right-sided Respiratory: Reports: Pleuritic Pain, Shortness of Breath Gastrointestinal: Denies: Abdominal Pain, Nausea, Vomiting Genitourinary: Denies: Dysuria Skin: Reports: - - Patient does have ecchymosis to the left medial forearm Neurological: Denies: Difficulty swallowing Psychiatric: Denies: Anxiety, Depression Hematologic/ Lymphatic: Denies: Easy Bleeding - Physical Exam General: Alert, Oriented x3, Cooperative, No apparent distress HEENT: Atraumatic Lungs: Clear to auscultation Cardiovascular: Regular rate Abdomen: Soft, Non Tender, Non-Distended Extremities: No clubbing, No cyanosis, No edema, - - Ecchymosis to the left medial forearm Skin: - - Ecchymosis left medial forearm Neurological: Cranial nerves II-XII grossly intact Psych/Mental Status: Normal Affect Vital Signs Temp Pulse Resp BP Pulse Ox 98.1 F 78 19 H 138/67 H 95 12/14/18 15:23 12/14/18 19:03 12/14/18 19:03 12/14/18 19:03 12/14/18 19:03 Oxygen Delivery Method Room Air Weight: 140 lb Body Mass Index (BMI) 24.0 Laboratory Tests Past 24 Hrs 12/14/18 12/14/18 12/14/18 15:50 15:50 15:50 WBC 7.3 RBC 4.88 Hgb 14.0 Hct 41.9 MCV 85.9 MCH 28.7 MCHC 33.4 RDW 13.6 RDW Differential 42.0 Plt Count 241 MPV 9.6 Immature Gran % (Auto) 0.400 Neut % (Auto) 68.6 Lymph % (Auto) 20.0 [place] % (Auto) 9.9 Eos % (Auto) 0.8 Baso % (Auto) 0.3 Absolute Neuts (auto) 5.0 Absolute Lymphs (auto) 1.46 Total Counted Not Reportable PT 13.1 INR 1.0 APTT 27.8 Sodium 145 Potassium 3.6 Chloride 112 H Carbon Dioxide 27.0 Anion Gap 6 BUN 11 Creatinine 0.61 Estim Creat Clear Calc 79.40 Est GFR (MDRD) Af Amer 126 Est GFR (MDRD) Non-Af 104 BUN/Creatinine Ratio 18.0 Glucose 83 Calcium 8.4 L Total Bilirubin 0.50 Direct Bilirubin 0.12 AST 22 ALT 35 Alkaline Phosphatase 119 H Total Protein 6.9 Albumin 3.7 Globulin 3.2 Assessment/Plan All Active Problems (Last Reviewed 07/11/18 @ 11:01 by Mahi Hsu, AGATA-C) Acute encephalopathy (Acute) Alcohol dependence (Acute) Pancreatitis, acute (Acute) 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 Due to patient's residual pneumothorax after chest tube recommend patient be transferred to a trauma center with cardiothoracic available for further chest tube management and can be closely monitored for her lung contusion. Patient is agreeable to plan. Plan is transfer to [facility]. Kelsey Ibrahim M.D. Pager: [phone] [facility] [address] [place] [address], [facility], [address] [place] [id number] Office: [phone] Code Visit Office Visits / Consults: [phone] OP Consult L2
[2018-12-14 21:30] VITALS: BP 144/70; PULSE 73; PULSE 75; RESP 18; RESP 20; O2SAT 96
--- NOTE | 2018-12-14 21:54 | ED.RN ---
CHEST TUBE CLAMPED PRIOR TO TRANSFER TO [facility]. REPORT GIVEN TO [facility].
== END 2018-12-14 21:55 | disposition short-term general hospital (02) ==
PROVIDERS: Emergency Provider Emergency Medicine
DX: S27.0XXA Traumatic pneumothorax, initial encounter (principal); S22.41XA Multiple fractures of ribs, right side, initial encounter for closed fracture; S27.321A Contusion of lung, unilateral, initial encounter; S50.12XA Contusion of left forearm, initial encounter; S60.00XA Contusion of unspecified finger without damage to nail, initial encounter; W14.XXXA Fall from tree, initial encounter; Y93.89 Activity, other specified; Y92.89 Other specified places as the place of occurrence of the external cause; E78.00 Pure hypercholesterolemia, unspecified; F32.9 Major depressive disorder, single episode, unspecified; J44.9 Chronic obstructive pulmonary disease, unspecified; F17.210 Nicotine dependence, cigarettes, uncomplicated; F10.20 Alcohol dependence, uncomplicated; Z79.82 Long term (current) use of aspirin; Z79.899 Other long term (current) drug therapy; Z86.73 Personal history of transient ischemic attack (TIA), and cerebral infarction without residual deficits
CPT/HCPCS: 32551; 70450; 71045; 71260; 72125; 72128; 72131; 74177; 80048; 80076; 85025; 85610; 85730; 90715; 93005; 96361; 96374; 96375; 96376; 99285; J7030; Q9967; J2405

== ENCOUNTER → 2019-07-08 08:46 | Outpatient (CLI) | payer MEDICARE, SELFPAY ==
[2019-01-15 10:18] VITALS: BMI 24.0
[2019-07-08 09:26] VITALS: PULSE 100; PULSE 78; PULSE 79; PULSE 95; PULSE 97; PULSE 99; O2SAT 92; O2SAT 93; O2SAT 95; O2SAT 97
--- NOTE | 2019-07-08 10:51 | PCM.PSN.6M ---
PSN 6 Minute Walk Test - 6 Minute Walk Test 6 Minute Walk Test: 6 Minute Walk Test PSN:6-Minute Walk Test Start: 07/08/19 09:22 Freq: Status: Active Protocol: [id number] Document 07/08/19 09:26 JAMAR (Rec: 07/08/19 09:28 JAMAR [id number]) 6 Minute Walk Test Date Performed 07/08/19 Time Performed 09:00 Height 5 ft 4 in Weight: 58.967 kg Weight in Pounds 130.[address]: Dustin Rolon Assistive device used: None Pre-test Oxygen Delivery Method Room Air Pulse Ox (%) 95 Pulse Rate (60-100 beats/min) 79 Dyspnea Naveen Scale (0-10) 0 Exertion Naveen Scale (6-20) 6 1st minute Oxygen Delivery Method Room Air Pulse Ox (%) 93 Pulse Rate (60-100 beats/min) 95 2nd minute Oxygen Delivery Method Room Air Pulse Ox (%) 92 Pulse Rate (60-100 beats/min) 97 3rd minute Oxygen Delivery Method Room Air Pulse Ox (%) 92 Pulse Rate (60-100 beats/min) 99 4th minute Oxygen Delivery Method Room Air Pulse Ox (%) 93 Pulse Rate (60-100 beats/min) 99 5th minute Oxygen Delivery Method Room Air Pulse Ox (%) 92 Pulse Rate (60-100 beats/min) 99 6th minute Oxygen Delivery Method Room Air Pulse Ox (%) 93 Pulse Rate (60-100 beats/min) 100 Dyspnea Naveen Scale (0-10) 1 Exertion Naveen Scale (6-20) 11 Post-test Oxygen Delivery Method Room Air Pulse Ox (%) 97 Pulse Rate (60-100 beats/min) 78 Full Laps Walked 18 Partial Lap, Number of Tiles Walked 40 Total Distance Walked (ft) 1102 - Interpretation Interpretation: The patient was able to ambulate 1102 feet over the course of 6 minutes on room air with no assistive devices or breaks. The patient did have significant desaturation as low as 92% with a peak heart rate of 100 bpm. These findings are consistent with a respiratory limitation exercise tolerance. - Recommendations Recommendations: No supplemental oxygen is indicated at this time.
== END ==
PROVIDERS: Referring Provider Nurse Practitioner Acute Care; Visit Provider Nurse Practitioner Acute Care
DX: J44.9 Chronic obstructive pulmonary disease, unspecified (principal)
CPT/HCPCS: 94618

== ENCOUNTER → 2019-07-10 13:03 | Outpatient (CLI) | payer MEDICARE, SELFPAY ==
[2019-01-15 10:18] VITALS: BMI 24.0
--- NOTE | 2019-07-10 16:52 | PFTCOMP_ITS ---
COMPLETE PULMONARY FUNCTION TEST INTERPRETATION Brief HPI: Patient is a 64 year old female, currently under the care of Dr. Rolon, who presents to [facility] for complete pulmonary function tests secondary to diagnosis of COPD. Respiratory therapist reports good effort and reproducible results. Interpretation: Forced expiration spirometry shows a moderate large airways obstructive ventilatory defect with an FEV1 of 71% predicted. There is no significant bronchodilator response by strict ATS criteria. Spirograms are of good quality and plateau slowly, indicating slowly emptying areas of the lungs. The respiratory flow volume loop shows decreased expiratory flow rates at high lung volumes consistent with small airways obstruction. Lung volumes by body plethysmography show a normal total lung capacity at 4.88 L, 97% predicted. All other lung volumes are within normal limits. Diffusion capacity by carbon monoxide is decreased at 60% predicted. The airway resistance is elevated. Compared to previous pulmonary function tests from 06/26/2018, there is been significant reduction in diffusion capacity by 22%. Impression: Irreversible moderate large airways obstructive ventilatory defect with a symmetric reduction diffusion capacity. There has been worsening compared to previous testing.
== END ==
PROVIDERS: Referring Provider Nurse Practitioner Acute Care; Visit Provider Nurse Practitioner Acute Care
DX: J44.9 Chronic obstructive pulmonary disease, unspecified (principal)
CPT/HCPCS: 94060; 94726; 94729

== ENCOUNTER → 2019-07-26 08:25 | Outpatient (CLI) | payer MEDICARE, SELFPAY ==
[2019-07-16 10:09] VITALS: BMI 24.0
--- NOTE | 2019-07-26 08:25 | CT_ITS ---
STUDY: LOW DOSE CT LUNG CANCER SCREENING REASON FOR EXAM: Female, 64 years old. CURRENT SMOKER 1 PPD X 50 YEARS. RADIATION DOSAGE (If Supplied By Facility): CTDIvol = ( 3.02 ) mGy, DLP = ( 104.58 ) mGycm TECHNIQUE: No contrast was administered. Low dose technique was utilized (average mAS-38 and kVp 120). 1.25 mm axial source images with a slice interval of 1.25-mm were reconstructed in lung windows. 2.5 mm axial source images with a slice interval of 2.5-mm were reconstructed in lung windows. 5.0 mm axial source images with a slice interval of 5.0-mm were reconstructed in soft tissue windows. Nodule measured using lung windows on PACS and/or independent workstation with automated measurement of minimum and maximum diameter. Nodule measurement reported as average diameter rounded to the nearest whole number. Growth is defined as an increase ins size of greater than 1.5 mm. COMPARISON: None. NODULES: No suspicious nodules are seen. Emphysema: Hyperinflation. Minimal linear scarring in the lateral aspect of the right lower lobe anteriorly. Mild degree of emphysematous changes in the upper lobes. Aorta: Mild degree of calcific plaques of the aortic arch. Coronary arteries: Coronary artery calcification. Mediastinal nodes: Small benign appearing mediastinal lymph nodes. Other chest and abdominal findings: There is evidence of multiple healed posterior right rib fractures. Multilevel degenerative changes of the dorsal spine. CT/Low Dose CT Lung Screening IMPRESSION: Lung-RADS category 2 - Continue annual screening with LDCT in 12 months. IMPORTANT NOTES FOR USE: ACR Lung-RADS Version 1.0 Assessment Categories Release Date: December 02, 2013 Category: Coded 0-4 bases on nodule(s) with highest degree of suspicion. Negative screen is defined as categories 1 and 2; a positive screen is defined as categories 3 and 4. Category 3 and 4A nodules that are unchanged on interval CT should be coded as category 2, and individuals returned to screening in 12 months. Category 4X: Category 3 or 4 nodules with additional imaging findings that increase the suspicion of lung cancer, such as spiculation, GGN that doubles in size in 1 year, enlarged lymph notes, etc. Category Modifiers: S (significant finding unrelated to lung cancer) and C (prior history of treated lung cancer) may be added to the 0-4 Lung-RADS Electronically Signed: August Gentile, at 14:04 EST , Service support ,
== END ==
PROVIDERS: Referring Provider Internal Medicine Critical Care Medicine; Visit Provider Internal Medicine Critical Care Medicine
DX: F17.210 Nicotine dependence, cigarettes, uncomplicated (principal); Z12.2 Encounter for screening for malignant neoplasm of respiratory organs
CPT/HCPCS: G0297

== ENCOUNTER → 2020-06-24 13:02 | Outpatient (CLI) | payer MEDICARE, SELFPAY ==
[2020-06-17 09:27] VITALS: BMI 24.3
--- NOTE | 2020-06-24 13:05 | ECHOD_ITS ---
Reason For Study: CAD/ASHD Procedure This was a 2D Doppler, Color Flow transthoracic echocardiogram. Exam performed in department. Left Ventricle Normal LV size. Left ventricular systolic function is normal. The estimated ejection fraction is 60 %. Stage 1 diastolic dysfunction. No regional wall motion abnormalities noted. Right Ventricle Normal RV size. Normal systolic function. Atria Normal left atrium. Normal right atrium. Mitral Valve Normal mitral valve. Tricuspid Valve Normal tricuspid valve. Aortic Valve Trisinus/trileaflet aortic valve. Mild focal aortic valve calcification. Pulmonic Valve Normal pulmonic valve. Great Vessels Normal aortic root. The pulmonary artery is normal size. Normal inferior vena cava. Pericardium/Pleural No pericardial effusion. MMode/2D Measurements & Calculations LVIDd: 3.3 cm IVSd: 0.75 cm LVOT diam: 2.0 cm LVIDs: 2.1 cm LVPWd: 0.81 cm LVOT area: 3.0 cm2 RVDd: 2.9 cm FS: 34.5 % LA dimension: 3.1 cm LAV(MOD-bp): 27.7 ml LA A4 area: 12.4 cm2 LAV(MOD-bp) Indexed: 16.5 ml/m2 LAV(MOD-sp2): 29.6 ml LAV(MOD-sp4): 25.9 ml RA A4 area: 10.2 cm2 Time Measurements MV dec time: 0.23 sec Doppler Measurements & Calculations MV E max tariq: 74.4 cm/sec Lat Peak E' Tariq: 9.6 cm/sec Med Peak E' Tariq: 7.2 cm/sec MV A max tariq: 110.5 cm/sec E/E' lat: 7.8 E/E' med: 10.4 MV E/A: 0.67 MV V2 max: 114.7 cm/sec MV P1/2t max tariq: 82.3 cm/sec Ao V2 max: 173.3 cm/sec MV max P.3 mmHg MV P1/2t: 90.3 msec Ao max P.0 mmHg MV V2 mean: 62.7 cm/sec MV dec slope: 266.8 cm/sec2 Ao V2 mean: 117.4 cm/sec MV mean P.8 mmHg Ao mean P.2 mmHg MV V2 VTI: 25.3 cm MVA(P1/2t): 2.4 cm2 Ao V2 VTI: 33.8 cm MVA(VTI): 3.0 cm2 KURTIS(I,D): 2.2 cm2 KURTIS(V,D): 2.2 cm2 LV V1 max: 124.6 cm/sec SV(LVOT): 74.8 ml PA V2 max: 93.4 cm/sec LV V1 max P.2 mmHg LV V1 mean P.6 mmHg LV V1 mean: 74.2 cm/sec LV V1 VTI: 24.7 cm Interpretation Summary Normal LV size. Left ventricular systolic function is normal. The estimated ejection fraction is 60 %. Stage 1 diastolic dysfunction. Mild focal aortic valve calcification. Ordering Physician: Chico Licona Referring Physician: Brennan Wood Performed By: Migue Gomes RCS
== END ==
PROVIDERS: PCP Nurse Practitioner Family; Referring Provider Internal Medicine Cardiovascular Disease; Visit Provider Internal Medicine Cardiovascular Disease
DX: I25.10 Atherosclerotic heart disease of native coronary artery without angina pectoris (principal); Z86.73 Personal history of transient ischemic attack (TIA), and cerebral infarction without residual deficits
CPT/HCPCS: 93306

== ENCOUNTER → 2020-07-24 12:01 | Outpatient (CLI) | payer MEDICARE, SELFPAY ==
[2020-07-14 11:09] VITALS: BMI 24.7
--- NOTE | 2020-07-24 12:02 | MRI_ITS ---
STUDY: MRI BRAIN WITH AND WITHOUT CONTRAST (ATTENTION INTERNAL AUDITORY CANALS - I.A.C.''s) REASON FOR EXAM: Female, 65 years old. vertigo x 3 months TECHNIQUE: Standardized multiplanar fat and water weighted pulse sequences were obtained. IV 13 cc dotarem was administered for the contrast portion of the examination. COMPARISON: None. FINDINGS: Normal bilateral temporal bones. Normal bilateral internal auditory canals. There is no demonstrated intracanalicular or cisternal vestibular schwannoma (acoustic neuroma). There is no enhancement of the bilateral VIIth or VIIIth cranial nerves. Normal bilateral cochlea, vestibules and semicircular canals. There is mild cerebral atrophy with widening of the extra-axial spaces and ventricular dilatation. There are a limited number of small white matter hyperintensities, distributed throughout the deep white matter tracts of the cerebral hemispheres, consistent with mild chronic white matter ischemic changes. There is no evidence for recent intracranial ischemia or other cause of cytotoxic edema on diffusion weighted imaging (DWI). Normal bilateral basal ganglia. Normal thalami. Normal flow voids within the major intracranial circulation suggesting patency by spin echo criteria. Normal venous enhancement. Developmental the venous anomaly of the left hemisphere of the cerebellum. There is no extra-axial fluid accumulation. Normal sella turcica, pituitary gland, infundibular stalk, optic chiasm and hypothalamus. Normal tectal plate and pineal gland. There are chronic white matter ischemic changes of the melony. The midbrain and medulla are otherwise normal. Normal cerebellum. Normal basal cisterns. No demonstrated orbital abnormality, within the constraints of a routine brain study. Normal visualized paranasal sinuses. Normal calvarium and skull base. Normal visualized soft tissue structures. Normal visualized upper cervical spine. MRI/Brain W/WO Contrast IMPRESSION: Involutional changes of the brain, as described above. No MR evidence of vestibular schwannoma (acoustic neuroma). Electronically Signed: Joaquin Melvin MD at 15:17 EST Tel , Service support ,
[2020-07-24 12:52] LABS: Hematocrit 42.3 % (37-47); Hemoglobin 14.3 g/dL (12.0-15.0); Mean Corp Hgb Conc 33.8 g/dL (32-36); Mean Corpuscular Hgb 29.8 pg (27.0-32.0); Mean Corpuscular Volume 88.1 fL (81-99); Mean Platelet Vol. 9.2 fl (6.2-12.0); Platelet Count 286 K/mm3 (150-450); RBC Distribution Width CV 12.7 % (11.6-14.6); RBC Distribution Width SD 41.2 fl (35.1-43.9); White Blood Count 10.4 K/mm3 (4.4-11.0)
[2020-07-24 13:37] LABS: AST(SGOT) 13 U/L (15-37); Alanine Aminotransfer ALT/SGPT 26 U/L (13-56); Albumin, Serum 3.6 g/dL (3.2-5.0); Alkaline Phosphatase 134 U/L (45-117); Anion Gap 3 (5-15); BUN 10 mg/dL (7-18); BUN/Creat Ratio 13.8 RATIO (10-20); Chloride 109 mmol/L (98-107); Creatinine, Serum 0.72 mg/dL (0.55-1.02); EST Glomerular Filtration Rate 85 mL/min (>60); Est Glom Filt Rate - Afr Amer 103 mL/min (>60); Globulin 3.6 g/dL (2.2-4.2); Glucose 84 mg/dL (74-106); Potassium 4.2 mmol/L (3.5-5.1); Protein, Total 7.2 g/dL (6.4-8.2); Sodium Level 141 mmol/L (136-145)
== END ==
PROVIDERS: PCP Nurse Practitioner Family; Referring Provider Psychiatry & Neurology Neurology; Visit Provider Psychiatry & Neurology Neurology
DX: R42 Dizziness and giddiness (principal); Z86.73 Personal history of transient ischemic attack (TIA), and cerebral infarction without residual deficits
CPT/HCPCS: 36415; 70553; 80053; 85027; A9575

== ENCOUNTER 2020-08-05 15:00 | Outpatient (RCR) | payer MEDICARE, SELFPAY ==
[2020-06-17 09:27] VITALS: BMI 24.3
--- NOTE | 2020-07-01 17:48 | HP.PTEVAL_ITS ---
Patient's Visit Information GRISELDA AVILA is a 65 year old F referred to Physical Therapy by CHANDA Holland with a diagnosis of BPPV. Date of Evaluation: 07/01/20 Physical Therapist: ELISEO Verduzco - Visit Plan Frequency: 2x /Week Duration: 2 Months Plan: 2X/ week for 8 weeks for gait training, balance activities (dynamic and static as well as compliant and non compliant surfaces), LE strength, Vestibular challenges with HEP - Subjective Pt reports about 2.5 months ago she started with dizzy spells. She went to a nurse practicioner and did EKG and blood draw... went to Dr Licona. They did an echocardiogram.... and everything looks good. She thought it was an ear infection and Dr Moore says no ear infection and no vertigo and gave her a clean bill of health. Also Dr Valdivia wanted her to have an MRI but the insurance wont pay for the MRI to get approved. She reports that she was able to walk and move around the house and walk the dogs and work in the yard without any issue until she woke up 2.5 months ago with the dizziness. When she first started with dizziness the room was spinning. She will sleep 18 hours cause she is so tired. Now she has lightheadedness and unsure of her footing. Her has noticed that her energy level is going down hill. She does notice that with walking she veers to the L. No room spinning dizziness since approx 4-5 days ago. Now she just has lightheadedness. She has noticed weakness in her legs. Sometimes she can roll R and L without getting dizzy but sometimes she will get dizzy. At time she can bend over and tie her shoe and other times she gets dizzy. She has started to get some mild BLAS. No visual changes. No neck pain....but some acheness in her R arm at night sometimes. No ear pain and no swooshing in her ears. - Objective Gait: walks with decreased ability to advance L leg with fluidity. She catches her L toe with gait (at least 3 times during initial eval). She veers and scissors to catch her balance and uses the maurer to help her walk. Her hold onto her when she is walking. She is not able to walk and turn her head in any direction without veering. Patients balance is so off that I recommended a walker so she does not fall. LE MMT: L hip flex 3+/5 and R hip flex 4/5, L knee ext 4-/5 and R knee ext 4+/5, L knee flex 3+/5 and R knee flex 4+/5, B hip abd 4/5, Able to do 3/4 normal ROM bridge. Pt had decreased L LE proprioception.... I had the pt close her eyes and do a SLR and she could raise her R leg up straight and back down. I had the patient raise her L leg into SLR with eyes closed and she could not raise her L leg up or down in a straight plane. I had her do the same thing in standing holding onto a railing and the same thing happened. I asked the pt about it and she said that is why she has to look down to walk as it is hard to place her L leg. B patella DTR's 3+/3. FGA 4. CATSIB 85/120. -B Hallpike for dizziness or nystagmus. No dizziness or nystagmus with smooth pursuit, VOR X 2, VOR Cx, saccades. Pt had someincrease dizziness with VOR X 2 (head is moving, eyes focused on a moving object (in opp diection of the head). - Balance Scores Functional Gait Assessment Score: 4 % Disability: 86.6700 CATSIB Score (Max score 120 seconds): 85 - Goals Goal 1:: I HEP Goal Time Frame: 4-6 Weeks Goal 2:: Be able to walk with CGA with no AD in a straight line with no veering or reaching out to touch the maurer Goal Time Frame: 4-6 Weeks Goal 3:: Increase L LE strength by 1/2 muscle grade (at time of eval: LE MMT: L hip flex 3+/5 and R hip flex 4/5, L knee ext 4-/5 and R knee ext 4+/5, L knee flex 3+/5 and R knee flex 4+/5, B hip abd 4/5, Able to do 3/4 normal ROM bridge). Goal Time Frame: 4-6 Weeks Goal 4:: Be able to stand and turn head X 4 directions while maintaing balance with CGA and no dizziness Goal Time Frame: 4-6 Weeks Goal 5:: Increase FGA by 5 points to decrease fall risk (FGA was a score of 4 at time of eval). Goal Time Frame: 4-6 Weeks Goal 6:: Increased CATSIB by 5 points to decrease fall risk (at time of eval CATSIB was 85) Goal Time Frame: 4-6 Weeks - Rehabilitation Potential Rehabilitation Potential: Fair - Anticipated Interventions Patient/Client Instruction: Educate patient on: Condition, Plan of Care For the Purpose of:: To improve muscle performance and motor function, To improve ability to perform ADL's, To increase tolerance to activity/condition/position, To improve performance and independence with ADL's, To decrease level of supervision to perform tasks, To improve ability of physical actions for home/community/work/leisure, To improve gait and locomotor functions, To improve endurance, To improve balance, To improve safety with gait Therapeutic Exercise to Include: Strength training, Balance training, Postural training, Gait and locomotor training, Neuromotor development, Active ROM, Dynamic Lumbar Stabilization For the Purpose of:: To improve muscle performance and motor function, To improve ability to perform ADL's, To increase tolerance to activity/co ndition/position, To improve performance and independence with ADL's, To decrease level of supervision to perform tasks, To improve ability of physical actions for home/community/work/leisure, To improve gait and locomotor functions, To increase flexibility/ROM, To improve endurance, To improve balance, To improve safety with gait Functional Training to Include: Gait training For the Purpose of:: To improve gait and locomotor functions, To improve safety with gait Thank you for the opportunity to evaluate your patient. For Medicare and Medicare HMO plans, please review the plan of care and approve it. It will need to be FAXED BACK to us at [phone] for Medicare purposes. For Medicare only, by signing this I certify the plan of care. Please let me know if there are questions or concerns regarding this plan of care. Physician Signature: Date:
--- NOTE | 2020-08-05 15:59 | HP.PTREVAL_ITS ---
Brennan Wood, AGATA-C, It has been my pleasure to treat GRISELDA AVILA over the last 8 visits for BPPV. Please see the progress note below for an update on the physical therapy plan of care! Subjective: Pt reports that she is stronger on her L side. She gets BLAS still and still gets dizzy spells but not as severe. She takes the dizzy meds 3 X/ day but today she wants to try it without the meds. Pt reports that 60 minutes is too long for her and that she is wiped out. Objective/Function: CATSIB 100/120. FGA 15/30. LE MMT on the L: hip flex 4- /5, knee flex and ext 4-/5, L hip abd 4-/5, L hip ext 4-/5. Quick head and eye movements in same direction causes increase dizzoness Plan Plan: Pt may wait until after her neurologist appointment to schedule more. 2X/ week for 8 weeks for 30 minutes for gait training, balance activities (dynamic and static as well as compliant and non compliant surfaces), LE strength, Vestibular challenges with HEP Goals Goal 1:: I HEP Goal Time Frame: 4-6 Weeks Goal Progress: Goal Met Goal 2:: Be able to walk with CGA with no AD in a straight line with no veering or reaching out to touch the maurer Goal Time Frame: 4-6 Weeks Goal Progress: Goal Met Goal 3:: Increase L LE strength by 1/2 muscle grade (at time of eval: LE MMT: L hip flex 3+/5 and R hip flex 4/5, L knee ext 4-/5 and R knee ext 4+/5, L knee flex 3+/5 and R knee flex 4+/5, B hip abd 4/5, Able to do 3/4 normal ROM bridge). Goal Time Frame: 4-6 Weeks Goal Progress: Goal Met Goal 4:: Be able to stand and turn head X 4 directions while maintaing balance with CGA and no dizziness Goal Time Frame: 4-6 Weeks Goal Progress: Progressing Goal 5:: Increase FGA by 5 points to decrease fall risk (FGA was a score of 15 at time of re-eval). Goal Time Frame: 4-6 Weeks Goal 6:: Increased CATSIB by 10 points to decrease fall risk (at time of eval CATSIB at re-eval 100 ) Goal Time Frame: 4-6 Weeks Anticipated Interventions Patient/Client Instruction: Educate patient on: Condition, Plan of Care For the Purpose of:: To improve muscle performance and motor function, To improve ability to perform ADL's, To increase tolerance to activity/condition/position, To improve performance and independence with ADL's, To decrease level of supervision to perform tasks, To improve ability of physical actions for home/community/work/leisure, To improve gait and locomotor functions, To improve endurance, To improve balance, To improve safety with gait Therapeutic Exercise to Include: Strength training, Balance training, Postural training, Gait and locomotor training, Neuromotor development, Active ROM, Dynamic Lumbar Stabilization For the Purpose of:: To improve muscle performance and motor function, To improve ability to perform ADL's, To increase tolerance to activity/condition/position, To improve performance and independence with ADL's, To decrease level of supervision to perform tasks, To improve ability of physical actions for home/community/work/leisure, To improve gait and locomotor functions, To increase flexibility/ROM, To improve endurance, To improve balance, To improve safety with gait Functional Training to Include: Gait training For the Purpose of:: To improve gait and locomotor functions, To improve safety with gait Please do not hesitate to contact me at [phone] by phone or if you have questions or concerns regarding this new plan of care! Sincerely, Jaclyn Houser MPT
--- NOTE | 2020-09-15 10:40 | HP.PTDCNRP_ITS ---
GRISELDA AVILA was seen in my office for initial evaluation on 07/01/20. The following Plan of Care was established for this patient: Initial Frequency: 2x /Week Initial Duration: 2 Months Patient/Client Instruction: Educate patient on: Condition, Plan of Care For the Purpose of:: To improve muscle performance and motor function, To improve ability to perform ADL's, To increase tolerance to activity/condition/position, To improve performance and independence with ADL's, To decrease level of supervision to perform tasks, To improve ability of physical actions for home/community/work/leisure, To improve gait and locomotor functions, To improve endurance, To improve balance, To improve safety with gait Therapeutic Exercise to Include: Strength training, Balance training, Postural training, Gait and locomotor training, Neuromotor development, Active ROM, Dynamic Lumbar Stabilization For the Purpose of:: To improve muscle performance and motor function, To improve ability to perform ADL's, To increase tolerance to activit y/condition/position, To improve performance and independence with ADL's, To decrease level of supervision to perform tasks, To improve ability of physical actions for home/community/work/leisure, To improve gait and locomotor functions, To increase flexibility/ROM, To improve endurance, To improve balance, To improve safety with gait Functional Training to Include: Gait training For the Purpose of:: To improve gait and locomotor functions, To improve safety with gait This patient was last seen in our office 08/05/20. Pertinent comments regarding their Physical therapy will appear below: DC PT as pt did not reschedule into the new year. At this point I will be discontinuing this patient from physical therapy. I would be happy to see this patient again in the future if found appropriate by the physician. Thank you! Jaclyn Houser, MPT
== END 2020-08-05 19:00 | disposition home or self-care (01) ==
LOC: PT 15:00
PROVIDERS: PCP Nurse Practitioner Family; Referring Provider Nurse Practitioner Family; Visit Provider Nurse Practitioner Family
DX: H81.10 Benign paroxysmal vertigo, unspecified ear (principal)
CPT/HCPCS: 97110; 97162; 97530

== ENCOUNTER 2020-08-14 17:54 | Observation (INO) | payer MEDICARE, SELFPAY ==
[2020-08-14] VITALS (11 sets, daily range): BP systolic 125–157; BP diastolic 68–89; PULSE 73–93; RESP 15–166; TEMP 35.6–36.7; O2SAT 96–99; BMI 25.7; BMI 25.0
--- NOTE | 2020-08-14 18:10 | EKG12_ITS ---
Test Reason : DYSRHYTHMIA Blood Pressure : / mmHG Vent. Rate : 086 BPM Atrial Rate : 086 BPM P-R Int : 138 ms QRS Dur : 080 ms QT Int : 378 ms P-R-T Axes : 071 037 035 degrees QTc Int : 452 ms Normal sinus rhythm Septal infarct , age undetermined Abnormal ECG Confirmed by JOSR THORPE, STACY ([id number]), art editor HOWARD AKINS ([id number]) on 08/17/2020 9:43:17 AM Referred By: Padma Arias Confirmed By:STACY OVALLES MD
--- NOTE | 2020-08-14 18:10 | RAD_ITS ---
STUDY: X-RAY CHEST REASON FOR EXAM: Female, 65 years old. NEURO DEFICIT, ACUTE STROKE SUSPECTED TECHNIQUE: 1 view COMPARISON: Prior chest radiograph of 12/14/2018 FINDINGS: The lungs are clear and expanded. There is no demonstrated pleural abnormality. Normal size heart. Normal mediastinum and linnette. Normal visualized pulmonary arteries. Normal visualized aortic arch and descending thoracic aorta. Normal visualized thoracic spine. Normal visualized ribs, clavicles, and shoulders. There is no demonstrated abnormality of the visualized soft tissue structures of the upper abdomen. RAD/Chest 1 View IMPRESSION: Normal x-ray examination of the chest. Electronically Signed: Rosana Santiago MD at 19:13 EST , Service support ,
[2020-08-14 18:26] LABS: Bedside Glucose 99 mg/dL (70-110)
[2020-08-14 18:39] LABS: Absolute Lymphocyte Count 2.67 X10^3/uL (0.83-4.51); Absolute Neutrophil Count 5.7 X10^3/uL (2.0-7.7); Basophil# 0.04 X10^3/uL; Basophil% 0.4 % (0-1); Eosinophil# 0.15 X10^3/uL; Eosinophils% 1.6 % (0-5); Hematocrit 43.2 % (37-47); Hemoglobin 13.8 g/dL (12.0-15.0); Lymphocyte # 2.67 X10^3/ul (4.0); Lymphocyte % 28.7 % (19-41); Mean Corp Hgb Conc 31.9 g/dL (32-36); Mean Corpuscular Hgb 28.2 pg (27.0-32.0); Mean Corpuscular Volume 88.3 fL (81-99); Mean Platelet Vol. 9.1 fl (6.2-12.0); Monocyte# 0.67 X10^3/uL; Monocyte% 7.2 % (0-10); NRBC Flagged by Analyzer 0 % (0-5); Neutrophil # 5.74 X10^3/uL (2.7-7.7); Neutrophil % 61.9 % (47-70); Platelet Count 255 K/mm3 (150-450); RBC Distribution Width CV 12.7 % (11.6-14.6); RBC Distribution Width SD 41.3 fl (35.1-43.9); Red Blood Count 4.89 M/mm3 (4.2-5.4); White Blood Count 9.3 K/mm3 (4.4-11.0)
[2020-08-14 18:40] LABS: Prothrombin Time (Protime)PT. 12.2 SECONDS (11.7-14.9)
[2020-08-14 18:48] LABS: Anion Gap 4 (5-15); BUN 11 mg/dL (7-18); BUN/Creat Ratio 14.1 RATIO (10-20); Calcium,Total 8.9 mg/dL (8.5-10.1); Chloride 107 mmol/L (98-107); Creatinine, Serum 0.78 mg/dL (0.55-1.02); EST Glomerular Filtration Rate 78 mL/min (>60); Est Glom Filt Rate - Afr Amer 95 mL/min (>60); Estimated Creatinine Clearance 45.16 ml/min; Glucose 99 mg/dL (74-106); Potassium 3.6 mmol/L (3.5-5.1); Sodium Level 140 mmol/L (136-145)
--- NOTE | 2020-08-14 18:48 | ED.VISSUMM ---
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 Valdivia and Dr. Gatica. She reports that she went to bed at 10:00 yesterday and was fine. She woke up at 730 this morning and had a left facial droop. She also reports that she has paresthesia in the left arm and left leg. States that last night she did not sleep well because of neck pain that she reports was 10 of 10 severity and aching. Is now 0 out of 10 in severity. She denies any trauma. No fall, MVA, or change in activity. Patient denies any other neurologic symptoms. No weakness. No slurred speech. No change in her vision. No difficulty ambulating. No vertigo. Physical Examination: Vitals: Stable. Afebrile. General: Well-nourished and well-developed. Head: Normocephalic atraumatic. Neck: Supple, no lymphadenopathy. No JVD. Nontender. Cardiovascular: Regular rate and rhythm. No murmurs. Respiratory: No respiratory distress. Clear to auscultation bilaterally. Abdominal: Soft, nontender, nondistended, normal bowel sounds. No guarding, rebound, or peritoneal signs. Back: Nontender. Extremities: Nontender, no edema. Skin: Normal color, no rash. Neurologic: Alert and oriented ?3. Patient has a mild left facial droop, but profound inability to close her left eye. She has decrease sensation to light touch in a V1 to V3 distribution on the left. Cranial nerves II through XII are intact otherwise. Normal strength. No hemineglect. Decreased sensation to light touch in her left upper and lower extremities. Her NIH scale is 2. Psych: Normal affect. Test Results: EKG is sinus at 86 with artifact and no acute changes. CBC is normal. INR is 1.0. PTT is 26.0. Chem-7 is normal. Troponin is negative. Chest x-ray shows no acute disease. Clinical Impression(s) from Imaging Studies Chest X-Ray 08/14/20 18:10 IMPRESSION: Normal x-ray examination of the chest. Electronically Signed: Rosana Santiago MD at 19:13 EST , Service support , Head/Neck CTA 08/14/20 19:00 IMPRESSION: No change and no acute abnormalities. Involutional changes and basal ganglia calcifications. Electronically Signed: Jason Aviles MD at 19:44 EST , Service support , Emergency Department Course and Treatment: Patient's NIH scale is 2 and has been greater than 20 hours since the onset of her symptoms. Therefore she is not a TPA candidate. She is resting comfortably. Treatment Plan: The patient was discussed with Dr. Arias and will be admitted to the hospital for further evaluation and treatment. Disposition: Admitted in stable condition. Impression: 1. Left facial droop. 2. Left upper/lower extremity paresthesias. This note was generated with [employer] dictation software. It may contain incorrect words, spelling, and punctuation that were not noted in review of the chart prior to signing ED Disposition - Plan for ED Patient: Referrals: Johnie Valdivia MD [Primary Care Provider] -
--- NOTE | 2020-08-14 19:00 | CT_ITS ---
STUDY: CTA HEAD AND NECK WITH CONTRAST REASON FOR EXAM: Female, 65 years old. Left facial droop, LUE/LLE numbness RADIATION DOSAGE (If Supplied By Facility): CTDIvol = ( 44.99 ) mGy, DLP = ( 745.49 ) mGycm TECHNIQUE: CT angiography was performed with a multi-detector CT scanner. Data acquisition was obtained from the skull base through the vertex following intravenous administration of 100ml Isovue 370. MIP images were reconstructed from the axial data set. Post-processing of the angiographic images was performed, with multiplanar reformation and 3D reconstruction. Individualized dose optimization techniques were used for this CT. COMPARISON: MRI 07/24/2020 FINDINGS: Normal bilateral petrous carotid arteries. There is calcified plaque formation of the right cavernous carotid artery, with a moderate stenosis (50-75%). There is calcified plaque formation of the left cavernous carotid artery, with a moderate stenosis (50-75%). Normal right A1 segments of the anterior cerebral artery. Normal left A1 segments of the anterior cerebral artery. Normal intact anterior communicating artery (ACOM). Normal bilateral A2 segments of the anterior cerebral arteries. Normal right M1 and M2 segments of the middle cerebral arteries, with a normal M1 bifurcation. Normal left M1 and M2 segments of the middle cerebral arteries, with a normal M1 bifurcation. Normal right posterior communicating artery (PCOM). Normal left posterior communicating artery (PCOM). Normal bilateral vertebral arteries. Normal basilar artery with a normal basilar bifurcation. The visualized bilateral superior cerebellar (SCA) arteries are normal. Normal bilateral P1, P2 and visualized P3 segments of the posterior cerebral arteries. There is no demonstrated aneurysm of the [place] of [place]. There is a stellate pattern of vascular structures within the left cerebellar hemisphere that in retrospect was also present on previous MRI. This is consistent with a probably incidental AVM. AORTIC ARCH: Normal visualized aortic arch. Normal origins of the brachiocephalic, left common carotid, and left subclavian arteries. RIGHT CAROTID ARTERIES: Normal right common carotid artery (CCA). There is mild atherosclerotic plaque formation with minimal narrowing of the right carotid bulb. There is mild atherosclerotic plaque formation of the origin of the right internal carotid artery with less than 50% cross sectional diameter stenosis. Normal visualized cervical portion of the right internal carotid artery. Normal origin of the right external carotid artery (ECA). LEFT CAROTID ARTERIES: Normal left common carotid artery (CCA). There is mild atherosclerotic plaque formation with minimal narrowing of the left carotid bulb. There is mild atherosclerotic plaque formation of the origin of the left internal carotid artery with less than 50% cross sectional diameter stenosis. Normal visualized cervical portion of the left internal carotid artery. Normal origin of the left external carotid artery (ECA). VERTEBRAL ARTERIES: Normal bilateral vertebral arteries. IMPRESSION: Mild atherosclerosis of the bilateral carotid bulbs and ICAs without hemodynamically significant stenosis. Calcified plaque with moderate grade stenosis of both cavernous carotid arteries. 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 Electronically Signed: Jason Aviles MD at 19:42 EST , Service support , STUDY: CT BRAIN WITHOUT CONTRAST REASON FOR EXAM: Female, 65 years old. Left facial droop, LUE/LLE numbness RADIATION DOSAGE (If Supplied By Facility): CTDIvol = ( 17.37 ) mGy, DLP = ( 704.24 ) mGycm TECHNIQUE: Transaxial CT imaging of the brain was performed without administration of intravenous contrast material. Individualized dose optimization techniques were used for this CT. COMPARISON: 12/14/2018 FINDINGS: Normal soft tissue structures. Normal calvarium. Normal size ventricles and extra-axial spaces for the patient''s age. There are areas of decreased attenuation within the white matter tracts of the supratentorial brain, consistent with microvascular disease changes. There are small punctate calcifications of the basal ganglia which are seen in the aging brain as a normal variant. Normal brainstem. Stable ill-defined hypodensity in the center of the left cerebellum where the patient is shown to have an AVM. There is no intracranial hemorrhage. There are no findings of an acute ischemic infarction. Normal visualized paranasal sinuses. CT/CTA Head AND Neck W/ Contrast IMPRESSION: No change and no acute abnormalities. Involutional changes and basal ganglia calcifications. Electronically Signed: Jason Aviles MD at 19:44 EST , Service support ,
--- NOTE | 2020-08-14 20:38 | PCM.HP.STD ---
Problem List (1) Nicotine dependence Status: Chronic Qualifiers: Nicotine product type: cigarettes Comment: Annual low-dose CT of the chest due in December (2) Acute CVA (cerebrovascular accident) Status: Acute (3) Stage 2 moderate COPD by GOLD classification Status: Chronic Comment: FEV1 72% of predicted History of Present Illness Date of Admission: 08/14/20 Chief Complaint: Left-sided facial numbness, inability to close left eye -started yesterday morning The patient is a 65 year old F with past medical history of CVA 10 years ago, chronic left sided weakness, follows with neurology, COPD, history of skin cancer who was last known well around 10 PM the day before. She woke up on the day of admission at 8 AM and relate that she could not blink her left eye. The left side of her face and extremities feels numb. She denied any dizziness or palpitations or shortness of breath. Patient follows with Dr. Gatica for ataxia, in the outpatient and had a recent MRI ( Jul 2020) showed chronic changes. She also has tingling and numbness in left upper and lower extremities. Vitals in the ED were controlled. Waiting blood work including troponin was negative. EKG shows normal sinus rhythm. CT of the head shows mild atherosclerosis of the bilateral carotid bulb and internal carotid artery without hemodynamically significant stenosis. Calcified plaque with moderate grade stenosis of both cavernous carotid arteries. 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 Past Medical History Past Medical History (Chronic Problems): Chronic Problems (Last Reviewed 08/13/20 @ 14:20 by Darlyn Rosario) History of CVA (cerebrovascular accident) (Chronic 2009) Hyperlipidemia (Chronic) Stage 2 moderate COPD by GOLD classification (Chronic) FEV1 72% of predicted Alcohol dependence (Chronic) Nicotine dependence (Chronic) Annual low-dose CT of the chest due in December Medical History: Medical History (Last Reviewed 08/13/20 @ 14:20 by Darlyn Rosario) History of CVA (cerebrovascular accident) (Chronic) Onset Date: 2009 Z86.73 Hyperlipidemia (Chronic) E78.5 Stage 2 moderate COPD by GOLD classification (Chronic) J44.9 FEV1 72% of predicted Alcohol dependence (Chronic) F10.20 Nicotine dependence (Chronic) F17.200 Annual low-dose CT of the chest due in December BPPV (benign paroxysmal positional vertigo) H81.10 Depression F32.9 Enlarged thyroid E04.9 Pancreatitis, acute K85.90 Skin cancer C44.90 Acute encephalopathy G93.40 Pneumothorax, right Onset Date: 12/2018 J93.9 Right-sided pneumothorax status post chest tube placement, right pulmonary contusion, multiple right posterior rib fractures, left upper extremity contusions 12/2018 Allergies atropine [From Lomotil] Allergy (Verified 08/13/20 14:20) Other codeine Allergy (Verified 08/13/20 14:20) Shortness of breath diphenoxylate [From Lomotil] Allergy (Verified 08/13/20 14:20) Other latex Adverse Reaction (Verified 08/13/20 14:20) Rash Home Medications: Ambulatory Orders Medication Instructions Recorded Aspirin [Adult Low Dose Aspirin EC] 81 mg PO DAILY 03/26/16 Multivitamins,Ther W-Minerals 1 tab PO DAILYCM 12/14/18 [Multivitamin With Minerals (BKC)] atorvastatin 40 mg tablet 40 mg PO QHS tab 06/17/20 cholecalciferol (vitamin D3) 25 25 mcg PO DAILY 06/17/20 mcg (1,000 unit) capsule duloxetine 60 mg capsule,delayed 60 mg PO BID cap 06/17/20 release meclizine 25 mg tablet 25 mg PO TID PRN #90 tab 08/13/20 Surgical History: Surgical History (Last Reviewed 08/13/20 @ 14:20 by Darlyn Rosario) History of appendectomy Z98.890, Z90.49 History of left breast biopsy Onset Date: 08/2017 Z98.890 Surgical History: appendectomy, - - Status post skin cancer removal on the right upper extremity, status post left breast biopsy Psychiatric History: No pertinent psych hx 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 history Lives: Spouse/ Significant Other Smoking Status: Current every day smoker Tobacco Use: Cigarettes - *Family History Maternal Family History: Family History (Last Reviewed 08/13/20 @ 14:20 by Darlyn Rosario) Sister Breast cancer History Items: Stroke Paternal Family History: Family History (Last Reviewed 08/13/20 @ 14:20 by Darlyn Rosario) Sister Breast cancer History Items: No pertinent history Review of Systems Constitutional: Denies: Anorexia, Chills, Fever, Malaise, Weakness, Weight Change Eyes: Denies: Blurred vision, Cataracts HEENT: Denies: Head Aches, Hearing Changes, Sinus Congestion, Sinus Drainage Cardiovascular: Denies: Chest Pain, Claudication, Orthopnea, Palpitations, Paroxysmal Noc. Dyspnea Respiratory: Denies: Cough, Hemoptysis, Shortness of breath at rest, Shortness of breath upon exertion, Sputum production Gastrointestinal: Denies: Abdominal Pain, Hematemesis, Hematochezia, Nausea, Vomiting Genitourinary: Denies: Dysuria, Frequency, Incontinence Musculoskeletal: Denies: Joint Pain, Joint Tenderness Skin: Denies: Pruritis, Rash, Wounds Neurological: Reports: Focal weakness, Numbness, Tingling. Denies: Difficulty swallowing Psychiatric: Denies: Anxiety, Depression, Homicidal Ideations, Suicidal Ideations Hematologic/ Lymphatic: Denies: Easy Bruising, Easy Bleeding VTE Information - Inpt Only VTE Present on Admission: No VTE Pharm Prophylaxis ordered?: Yes Patient Problems: Active and Suspected Problems (Last Reviewed 08/13/20 @ 14:20 by Darlyn Rosario) Acute CVA (cerebrovascular accident) (Acute) - Physical Exam Vitals/I&O's: Vital Signs Temp Pulse Resp BP Pulse Ox 96.0 F L 93 20 H 141/69 H 98 08/14/20 17:55 08/14/20 19:13 08/14/20 19:13 08/14/20 19:13 08/14/20 19:13 Oxygen Delivery Method Room Air Weight: 65.8 kg Body Mass Index (BMI) 25.7 Finger Stick Blood Glucose 99 General: Alert, Oriented x3, Cooperative, No apparent distress HEENT: Atraumatic, PERRLA, EOMI, Normocephalic Oral: Moist Mucosa Neck: Supple Lungs: Clear to auscultation, Normal air movement Cardiovascular: Regular rate, Regular Rhythm, Normal S1, Normal S2, No murmurs Abdomen: Bowel Sounds Present, Soft, Non Tender, Non-Distended, No Hepato-splenomegaly Extremities: No edema Skin: No rashes Musculoskeletal: No Tenderness to Palpation of Joints or Extremities Lymphatic: No Cervical, Supraclavicular, or Inguinal Adenopathy Neurological: - - Left-sided decreased sensation, facial droop noted, slight flattening of the nasolabial fold, power in the left upper lower extremity is 4/5, power in the right upper and lower extremities 5/5, decreased sensation in left side of the body Psych/Mental Status: Normal Affect, Appropriate Laboratory Results 08/14/20 18:17: WBC 9.3, RBC 4.89, Hgb 13.8, Hct 43.2, MCV 88.3, MCH 28.2, MCHC 31.9 L, RDW Std Deviation 41.3, RDW Coeff of Kelsie 12.7, Plt Count 255, MPV 9.1, Immature Gran % (Auto) 0.200, Neut % (Auto) 61.9, Lymph % (Auto) 28.7, [place] % (Auto) 7.2, Eos % (Auto) 1.6, Baso % (Auto) 0.4, Absolute Neuts (auto) 5.7, Absolute Lymphs (auto) 2.67, Nucleated RBC % 0 08/14/20 18:17: PT 12.2, INR 1.0, APTT 26.0 08/14/20 18:17: Sodium 140, Potassium 3.6, Chloride 107, Carbon Dioxide 29.0, Anion Gap 4 L, BUN 11, Creatinine 0.78, Estim Creat Clear Calc 45.16, Est GFR (MDRD) Af Amer 95, Est GFR (MDRD) Non-Af 78, BUN/Creatinine Ratio 14.1, Glucose 99, Calcium 8.9, Troponin I < 0.015 08/14/20 18:20: POC Glucose 99 Current Medications Labetalol HCl (Labetalol (Prefilled) 20 Mg/4 Ml) 20 mg IV X1 PRN PRN Reason: Blood Pressure Assessment/Plan All Active Problems (Last Reviewed 08/13/20 @ 14:20 by Darlyn Rosario) Acute CVA (cerebrovascular accident) (Acute) Dizziness (Acute) Tachycardia (Acute) 1. Acute left-sided facial weakness/droop concerning for acute CVA History of CVA 10 years ago, patient also follows with neurology for chronic left-sided weakness CTA of the head and neck showed mild atherosclerosis of the bilateral carotid bulb and internal carotid artery, calcified plaque with moderate grade stenosis of both cavernous carotid arteries Recent MRI of the brain in July 2020 was unremarkable We will admit patient to PCU, stroke protocol, MRI brain, 2D echo 2. Nicotine dependence, advised to quit, on replacement 3. Hyperlipidemia, continue statin 4. COPD, not in acute exacerbation, continue as needed breathing treatment 5. DVT prophylaxis?heparin subcu 6. CODE STATUS: Full code I discussed and explained in details the various types of CODE STATUS-full code, DNR CCA, DNR CC. Patient chose to be full code. She wants aggressive measures in the event of a cardiopulmonary event. Time spent discussing CODE STATUS 16 minutes Inpatient E&M: 14431 Init Hosp L3 Procedures: 40151 Advncd Care Plan 30 Min
[2020-08-14] MEDS: Heparin Injection (Vial) 5,000 UNIT/ML VIAL 5000 UNIT SC (22:43)
[2020-08-15] VITALS (8 sets, daily range): BP systolic 116–140; BP diastolic 57–69; PULSE 73–86; RESP 14–18; TEMP 36.4–36.7; O2SAT 94–98; BMI 25.0
--- NOTE | 2020-08-15 01:06 | PCS.PANDOC ---
PANDEMIC DOCUMENTATION INITIATED: Date: 08/14/20 Time: 2127
--- NOTE | 2020-08-15 01:51 | MRI_ITS ---
STUDY: MRI BRAIN WITHOUT CONTRAST REASON FOR EXAM: Female, 65 years old. neurodeficit TECHNIQUE: Standardized multiplanar fat and water weighted pulse sequences were obtained. COMPARISON: 07/24/2020 FINDINGS: There is mild cerebral atrophy with widening of the extra-axial spaces and ventricular dilatation. There are a limited number of small white matter hyperintensities, distributed throughout the deep white matter tracts of the cerebral hemispheres, consistent with mild chronic white matter ischemic changes. There is no evidence for recent intracranial ischemia or other cause of cytotoxic edema on diffusion weighted imaging (DWI). Normal T2* images of the brain without demonstrated susceptibility artifact. There is no demonstrated hemosiderin stain. Normal bilateral basal ganglia. Normal thalami. There is no extra-axial fluid accumulation. Normal flow voids within the major intracranial circulation suggesting patency by spin echo criteria. Normal sella turcica, pituitary gland, infundibular stalk, optic chiasm and hypothalamus. Normal tectal plate and pineal gland. There are chronic white matter ischemic changes of the melony. The midbrain and medulla are otherwise normal. Normal cerebellum. Normal basal cisterns. Normal bilateral temporal bones. Normal bilateral internal auditory canals. No demonstrated orbital abnormality, within the constraints of a routine brain study. Normal visualized paranasal sinuses. Normal calvarium and skull base. Normal visualized soft tissue structures. Normal visualized upper cervical spine. MRI/Brain without Contrast IMPRESSION: Involutional changes of the brain, as described above. No acute infarct. Electronically Signed: Joaquin Melvin MD at 11:17 EST Tel , Service support ,
[2020-08-15 09:13] LABS: Absolute Lymphocyte Count 2.67 X10^3/uL (0.83-4.51); Absolute Neutrophil Count 4.9 X10^3/uL (2.0-7.7); Basophil# 0.04 X10^3/uL; Basophil% 0.5 % (0-1); Eosinophil# 0.19 X10^3/uL; Eosinophils% 2.3 % (0-5); Hematocrit 44.1 % (37-47); Hemoglobin 14.6 g/dL (12.0-15.0); Lymphocyte # 2.67 X10^3/ul (4.0); Lymphocyte % 31.9 % (19-41); Mean Corp Hgb Conc 33.1 g/dL (32-36); Mean Corpuscular Volume 87.7 fL (81-99); Mean Platelet Vol. 9.3 fl (6.2-12.0); Monocyte# 0.57 X10^3/uL; Monocyte% 6.8 % (0-10); NRBC Flagged by Analyzer 0 % (0-5); Neutrophil # 4.87 X10^3/uL (2.7-7.7); Neutrophil % 58.1 % (47-70); Platelet Count 254 K/mm3 (150-450); RBC Distribution Width CV 12.9 % (11.6-14.6); RBC Distribution Width SD 41.1 fl (35.1-43.9); Red Blood Count 5.03 M/mm3 (4.2-5.4); White Blood Count 8.4 K/mm3 (4.4-11.0)
[2020-08-15 09:35] LABS: AST(SGOT) 16 U/L (15-37); Alanine Aminotransfer ALT/SGPT 30 U/L (13-56); Albumin, Serum 3.4 g/dL (3.2-5.0); Alkaline Phosphatase 120 U/L (45-117); Anion Gap 6 (5-15); BUN 9 mg/dL (7-18); Calcium,Total 8.5 mg/dL (8.5-10.1); Chloride 108 mmol/L (98-107); Cholesterol 176 mg/dL (200); Creatinine, Serum 0.64 mg/dL (0.55-1.02); EST Glomerular Filtration Rate 97 mL/min (>60); Est Glom Filt Rate - Afr Amer 118 mL/min (>60); Estimated Creatinine Clearance 45.16 ml/min; Globulin 3.4 g/dL (2.2-4.2); Glucose 91 mg/dL (74-106); High Density Lipoprotein 37 mg/dL; Potassium 3.8 mmol/L (3.5-5.1); Protein, Total 6.8 g/dL (6.4-8.2); Sodium Level 141 mmol/L (136-145); Triglycerides 259 mg/dL; Very Low Density Lipoprotein 52 mg/dL (5-40)
[2020-08-15] MEDS: Heparin Injection (Vial) 5,000 UNIT/ML VIAL 5000 UNIT SC (10:50)
--- NOTE | 2020-08-15 11:07 | CASEMGMT ---
SW met w/pt in room in regard to prior level of function and discharge plan. PCP: Dr. Valdivia [facility]acy: [facility] Insurance: Aet Medicare LNOK: , son Living arrangements: Pt lives home with . Pt normally is fully independent with ADLs. LW/POA: states is POA, she has completed the papers. SW did let pt know that the papers are not on file here. DME/SNF/HHC: Pt does have a cane she has been using the last couple of weeks, she normally does not need it however. Pt has no history of SNF of HHC. Pt has been to [facility] for outpt therapy in the past. SW spoke w/pt about discharge plan. Pt anticipates being able to return home at discharge. 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 SW/CM to follow in regard to this. Plan: Home, TBD if home care or outpt PT is needed. SCOTT Carney
--- NOTE | 2020-08-15 11:15 | CASEMGMT ---
Addendum entered by Jaki Rodriguez 08/15/20 11:19: PHQ-9 resource guide not given as pt does not have indication of depression. SCOTT Carney Original Note: Pt completed PHQ-9 w/pt, pt scored a 6. Pt explained has been very tired the last two weeks and has been sleeping a lot, she implied due to her medical issues. Other than this, pt has no symptoms of depression indicated by the PHQ-9. SCOTT Carney
--- NOTE | 2020-08-15 11:21 | CASEMGMT ---
As per pt, has LW/POA, let pt know not on file here in the hospital. SCOTT Carney
--- NOTE | 2020-08-15 13:47 | DCINST_ITS ---
- Discharge Diagnoses Current Active Problems: Current Active and Chronic Problems (Last Reviewed 08/13/20 @ 14:20 by Darlyn Rosario) Acute CVA (cerebrovascular accident) (Acute) Stage 2 moderate COPD by GOLD classification (Chronic) FEV1 72% of predicted Nicotine dependence (Chronic) Annual low-dose CT of the chest due in December You will use the following diet at home:: No restrictions Your food should be the consistency of: Regular Your liquids should be the consistency of: Regular/Thin Discharge Activity: Return to Normal Activity Weight Bearing Status: Full weight bearing Allergies/Adverse Reactions: Allergies atropine [From Lomotil] Allergy (Verified 08/14/20 21:51) Other codeine Allergy (Verified 08/14/20 21:51) Shortness of breath diphenoxylate [From Lomotil] Allergy (Verified 08/14/20 21:51) Other latex Adverse Reaction (Verified 08/14/20 21:51) Rash Medications to take at Discharge Aspirin [Adult Low Dose Aspirin EC] 81 mg PO DAILY 03/26/16 Multivitamins,Ther W-Minerals [Multivitamin With Minerals (BKC)] 1 tab PO DAILYCM 12/14/18 atorvastatin 40 mg tablet 40 mg PO QHS tab 06/17/20 cholecalciferol (vitamin D3) 25 mcg (1,000 unit) capsule 25 mcg PO DAILY 06/17/20 duloxetine 60 mg capsule,delayed release 60 mg PO BID cap 06/17/20 meclizine 25 mg tablet 25 mg PO TID PRN #90 tab 08/13/20 predniSONE tablet 60 mg PO UD #18 tab 08/15/20 The following prescriptions were given: predniSONE tablet 60 mg PO UD #18 tab Transmission Status: Pending to [facility] Primary Care Physician: Johnie Valdivia MD [Primary Care Provider] - Please follow up with your Primary Care Physician in: in 2 weeks Test Results: Test results from this visit will be discussed in further detail at your follow- up appointment, if applicable.
[2020-08-15] MEDS: MethylPREDNISolone Acetate 80 MG/ML Vial IM (14:05)
--- NOTE | 2020-08-16 07:32 | PCM.DC.SUM ---
Discharge Date and Diagnosis - Problem List Patient Problems: Active and Suspected Problems (Last Reviewed 08/13/20 @ 14:20 by Darlyn Rosario) Acute CVA (cerebrovascular accident) (Acute) Date of Admission: 08/14/20 Date of Discharge: 08/15/20 - Primary Discharge Diagnosis Acute Problems: Active Problems (Last Reviewed 08/13/20 @ 14:20 by Darlyn Rosario) #1 left-sided Patton's palsy #2 hyperlipidemia #3 chronic obstructive pulmonary disease #4 cerebrovascular disease by history - Secondary Discharge Diagnosis Chronic Problems: Chronic Problems (Last Reviewed 08/13/20 @ 14:20 by Darlyn Rosario) History of CVA (cerebrovascular accident) (Chronic 2009) Hyperlipidemia (Chronic) Stage 2 moderate COPD by GOLD classification (Chronic) FEV1 72% of predicted Alcohol dependence (Chronic) Nicotine dependence (Chronic) Annual low-dose CT of the chest due in December Hospital Course and Treatment Operations: None Procedures: None Summary of Care Provided: The patient is a 65 year old F seen in the emergency room at [facility] with a chief complaint of left-sided facial droop and some paresthesias in her left arm and left leg. She noticed this when she awoke at 7:30 in the morning. Patient denied any other focal deficits, she denied any speech or visual disturbances. Evaluation in the emergency room included a CT of the head which showed no acute process, chemistry profile was normal, CBC was normal. Head and neck CTA did not show any significant occlusive disease. Chest x-ray showed no acute disease. Patient had a noticeable left-sided facial droop with inability to close left eyelid. Stroke team was not called, patient's NIH score was 2, she was admitted to PCU as a rule out stroke, NIH scores were continued, she underwent an MRI of the brain which showed no evidence of an acute infarct or old infarction. On 08/15/2020, patient was seen and examined: On examination she appeared in good health and spirits, she does not appear to be in any distress. Vital signs as documented. Skin warm and dry and without overt rashes. Neck without JVD, thyroid appears normal, trachea is midline, neck is supple. Lungs clear, normal air movement was noted. Heart exam notable for regular rhythm, normal sounds and absence of murmurs, rubs or gallops. Abdomen unremarkable and without evidence of organomegaly, masses, or abdominal aortic enlargement, bowel sounds are present in all 4 quadrants, no abdominal tenderness was noted. Extremities nonedematous, no cyanosis was noted, no clubbing was noted. Neuro: Cranial nerves II through XII are grossly intact, no focal motor deficits were noted, sensation to light touch and pinprick is intact, motor exam 5/5 throughout. There is noted to be left-sided facial drooping with inability to close the left eyelid. Psych: Patient is alert and oriented x3, she does not appear anxious or depressed, she does not appear agitated. It appears patient has Patton's palsy, patient was given Solu-Medrol 80 mg IM and discharged home in stable condition on 08/15/2020. Patient Problems: Active and Suspected Problems (Last Reviewed 08/13/20 @ 14:20 by Darlyn Rosario) Acute CVA (cerebrovascular accident) (Acute) - Physical Exam Vitals/I&O's: Vital Signs Temp Pulse Resp BP Pulse Ox 97.9 F 86 16 116/57 L 95 08/15/20 14:00 08/15/20 14:00 08/15/20 14:00 08/15/20 14:00 08/15/20 14:00 Oxygen Delivery Method Room Air Weight: 63.7 kg Body Mass Index (BMI) 25.0 Finger Stick Blood Glucose 99 Intake and Output for Last 24 Hours 08/14/20 08/15/20 08/16/20 23:59 23:59 23:59 Intake Total 60 / 60 Output Total 0 / 0 Balance 60 / 60 Laboratory Results 08/15/20 08:30: WBC 8.4, RBC 5.03, Hgb 14.6, Hct 44.1, MCV 87.7, MCH 29.0, MCHC 33.1, RDW Std Deviation 41.1, RDW Coeff of Kelsie 12.9, Plt Count 254, MPV 9.3, Immature Gran % (Auto) 0.400, Neut % (Auto) 58.1, Lymph % (Auto) 31.9, [place] % (Auto) 6.8, Eos % (Auto) 2.3, Baso % (Auto) 0.5, Absolute Neuts (auto) 4.9, Absolute Lymphs (auto) 2.67, Nucleated RBC % 0 08/15/20 08:30: Sodium 141, Potassium 3.8, Chloride 108 H, Carbon Dioxide 27.0, Anion Gap 6, BUN 9, Creatinine 0.64, Estim Creat Clear Calc 45.16, Est GFR (MDRD) Af Amer 118, Est GFR (MDRD) Non-Af 97, BUN/Creatinine Ratio 14.0, Glucose 91, Calcium 8.5, Total Bilirubin 0.60, AST 16, ALT 30, Alkaline Phosphatase 120 H, Total Protein 6.8, Albumin 3.4, Globulin 3.4, Albumin/Globulin Ratio 1.0, Triglycerides 259 H, Cholesterol 176, LDL Cholesterol 87, VLDL Cholesterol 52 H, HDL Cholesterol 37 L Discharge Activity: Return to Normal Activity Weight Bearing Status: Full weight bearing Home Medications: Medications to take at Discharge Aspirin [Adult Low Dose Aspirin EC] 81 mg PO DAILY 03/26/16 Multivitamins,Ther W-Minerals [Multivitamin With Minerals (BKC)] 1 tab PO DAILYCM 12/14/18 atorvastatin 40 mg tablet 40 mg PO QHS tab 06/17/20 cholecalciferol (vitamin D3) 25 mcg (1,000 unit) capsule 25 mcg PO DAILY 06/17/20 duloxetine 60 mg capsule,delayed release 60 mg PO BID cap 06/17/20 meclizine 25 mg tablet 25 mg PO TID PRN #90 tab 08/13/20 predniSONE tablet 60 mg PO UD #18 tab 08/15/20 Following Prescriptions Were Given to Patient: predniSONE tablet 60 mg PO UD #18 tab Transmission Status: Received by [facility] Primary Care Physician: Johnie Valdivia MD [Primary Care Provider] - Please follow up with your Primary Care Physician in: in 2 weeks Disposition: Home Minutes spent on discharge:: 31 Patient Condition:: Stable Medical Necessity - Tobacco Use Smoking Status: Current every day smoker Tobacco Use: Cigarettes Meaningful Use Info Meaningful Use Diagnoses (Choose all that apply): None applicable Inpatient E&M: 24306 Disch Hosp
== END 2020-08-15 14:33 | disposition home or self-care (01) | DRG 74 ==
LOC: ED 18:39 → PCU 08-15 07:09
PROVIDERS: Admitting Provider Internal Medicine; Emergency Provider Emergency Medicine; PCP Family Medicine; Referring Provider Internal Medicine; Visit Provider Internal Medicine
DX: G51.0 Bell's palsy (principal); I69.354 Hemiplegia and hemiparesis following cerebral infarction affecting left non-dominant side; E78.5 Hyperlipidemia, unspecified; J44.9 Chronic obstructive pulmonary disease, unspecified; F10.20 Alcohol dependence, uncomplicated; F17.210 Nicotine dependence, cigarettes, uncomplicated; F32.9 Major depressive disorder, single episode, unspecified; Z79.899 Other long term (current) drug therapy; Z79.82 Long term (current) use of aspirin; R29.702 NIHSS score 2
CPT/HCPCS: 36415; 70496; 70498; 70551; 71045; 80048; 80053; 80061; 82962; 84484; 85025; 85610; 85730; 92610; 93005; 94762; 96372; 97162; 97165; 97802; 99218; 99251; 99285; 99406; Q9957; Q9967; A4216; G0378; G0463

== ENCOUNTER → 2020-08-25 13:04 | Outpatient (CLI) | payer MEDICARE, SELFPAY ==
[2020-07-14 11:09] VITALS: BMI 24.7
[2020-08-15 00:59] VITALS: BMI 25.0
--- NOTE | 2020-08-25 13:08 | CT_ITS ---
STUDY: LOW DOSE CT LUNG CANCER SCREENING REASON FOR EXAM: Female, 65 years old. Tobacco dependency, 50 year smoker @ 1ppd RADIATION DOSAGE (If Supplied By Facility): CTDIvol = ( 1.70 ) mGy, DLP = ( 51.27 ) mGycm TECHNIQUE: No contrast was administered. Low dose technique was utilized (average mAS-38 and kVp 120). 1.25 mm axial source images with a slice interval of 1.25-mm were reconstructed in lung windows. 2.5 mm axial source images with a slice interval of 2.5-mm were reconstructed in lung windows. 5.0 mm axial source images with a slice interval of 5.0-mm were reconstructed in soft tissue windows. Nodule measured using lung windows on PACS and/or independent workstation with automated measurement of minimum and maximum diameter. Nodule measurement reported as average diameter rounded to the nearest whole number. Growth is defined as an increase ins size of greater than 1.5 mm. COMPARISON: Comparison is made with prior study dated 07/26/2019. NODULES: No suspicious nodules are seen. Emphysema: Hyperinflation. Emphysematous changes more prominent in the upper lobes. Minimal linear scarring in the posterior medial segment of the right upper lobe. Aorta: Atherosclerotic plaque formation of the aortic arch. Coronary arteries: Coronary artery calcification. Mediastinal nodes: Small benign-appearing mediastinal lymph nodes. Other chest and abdominal findings: Healed posterior right rib fractures. CT/Low Dose CT Lung Screening IMPRESSION: Lung-RADS category 2 - Continue annual screening with LDCT in 12 months. IMPORTANT NOTES FOR USE: ACR Lung-RADS Version 1.0 Assessment Categories Release Date: December 02, 2013 Category: Coded 0-4 bases on nodule(s) with highest degree of suspicion. Negative screen is defined as categories 1 and 2; a positive screen is defined as categories 3 and 4. Category 3 and 4A nodules that are unchanged on interval CT should be coded as category 2, and individuals returned to screening in 12 months. Category 4X: Category 3 or 4 nodules with additional imaging findings that increase the suspicion of lung cancer, such as spiculation, GGN that doubles in size in 1 year, enlarged lymph notes, etc. Category Modifiers: S (significant finding unrelated to lung cancer) and C (prior history of treated lung cancer) may be added to the 0-4 Lung-RADS Electronically Signed: August Gentile MD at 14:16 EST , Service support ,
== END ==
PROVIDERS: PCP Family Medicine; Referring Provider Internal Medicine Critical Care Medicine; Visit Provider Internal Medicine Critical Care Medicine
DX: R42 Dizziness and giddiness (principal); E78.5 Hyperlipidemia, unspecified; F17.210 Nicotine dependence, cigarettes, uncomplicated; Z86.73 Personal history of transient ischemic attack (TIA), and cerebral infarction without residual deficits
CPT/HCPCS: 71271

== ENCOUNTER 2022-09-07 11:24 | Observation (INO) | payer MEDICARE, SELFPAY ==
[2022-08-30 12:12] LABS: Hematocrit 43.2 % (37-47); Hemoglobin 14.4 g/dL (12.0-15.0); Mean Corp Hgb Conc 33.3 g/dL (32-36); Mean Corpuscular Hgb 29.8 pg (27.0-32.0); Mean Corpuscular Volume 89.3 fL (81-99); Mean Platelet Vol. 9.6 fl (6.2-12.0); Platelet Count 262 K/mm3 (150-450); RBC Distribution Width CV 12.1 % (11.6-14.6); RBC Distribution Width SD 39.5 fl (35.1-43.9); Red Blood Count 4.84 M/mm3 (4.2-5.4); White Blood Count 10.4 K/mm3 (4.4-11.0)
[2022-08-30 12:55] LABS: Anion Gap 5 (5-15); BUN 13 mg/dL (7-18); BUN/Creat Ratio 19.7 RATIO (10-20); Calcium,Total 9.4 mg/dL (8.5-10.1); Chloride 106 mmol/L (98-107); Creatinine, Serum 0.66 mg/dL (0.55-1.02); EST Glomerular Filtration Rate 94 mL/min (>60); Est Glom Filt Rate - Afr Amer 114 mL/min (>60); Glucose 106 mg/dL (74-106); Potassium 3.7 mmol/L (3.5-5.1); Sodium Level 142 mmol/L (136-145)
[2022-09-07] VITALS (18 sets, daily range): BP systolic 106–149; BP diastolic 49–74; PULSE 73–91; RESP 16–20; TEMP 36.1–36.9; O2SAT 90–100; BMI 23.0
--- NOTE | 2022-09-07 | KID_PTH ---
PATIENT: GRISELDA AVILA LOC: MS3 U#:[id number] AGE/SX: 67/F ROOM: [facility] [place] RE09/07/[address]: Dr. Angel Luis Mckeon MD : 1955 BED: 1 DIS: 09/08/2022 SPEC #: [id number] RECD: 09/07/22 16:19 STATUS: NAVA LI #: [id number] CECILE: 09/07/22 00:[address]: Angel Luis Mckeon DEPT: SURGICAL PATHOLOGY RECD BY: Osmar [place] ENTERED: 09/08/22 11:08 SP TYPE: KIDNEY OTHR DR: MD Dr. Johnie Jacob MD Tissues: Kidney, NOS Procedures: Surgery Specimen Level V HEADER OPERATION: Lap robotic partial nephrectomy PRE-OP DIAGNOSIS: 2 cm right renal mass TISSUE SUBMITTED: Right kidney mass MICROSCOPIC DIAGNOSIS Right kidney mass, partial nephrectomy: Clear cell renal cell carcinoma. See synoptic report below. AM:anabell 09/09/2022 COMMENT KIDNEY CANCER SUMMARY Procedure ? partial nephrectomy Specimen laterality ? right kidney Tumor size ? 2.5 x 1.3 x 1.3 cm Tumor focality ? single focus of carcinoma Histologic type ? clear cell renal cell carcinoma Sarcomatoid features ? not identified Rhabadoid features - not identified Histologic grade - grade 1/2 (WHO/ISUP grade/Carli grade) Tumor necrosis - absent Tumor extension ? tumor confined to kidney. Margins ? uninvolved by invasive carcinoma. Lymphvascular invasion - not identified Regional lymph nodes ? no lymph nodes found Non-neoplastic kidney ? mild arterionephrosclerosis and focal chronic inflammation. PATHOLOGIC STAGE: pT1a Nx Mx The above summary is in compliance with [employer] (CAP) Cancer Protocols Checklist and [place] Joint Committee on Cancer (AJCC), Staging Manual, 8th Ed. Case has been reviewed in consultation with Dr. Shen who concurs with the above diagnosis. IDC:SJ MICROSCOPIC DESCRIPTION Slides are reviewed. GROSS DESCRIPTION Received in fixative is one container labeled with the patient's name and designated right kidney mass. The specimen consists of an irregular fragment of avila tissue measuring 3.6 x 2.6 x 1.2 cm. The presumed parenchymal surface is inked in blue ink. Serial sections reveal a cystic mass containing dark avila material in which there are areas of yellow discoloration measuring 2.5 x 1.3 x 1.3 cm. The specimen is sectioned and submitted in its entirety in four cassettes. / AM:anabell 09/09/2022 TC:0 CPT: 09823
[2022-09-07] MEDS: Lactated Ringers 1,000 ML 15 ML IV (08:35)
[2022-09-07] MEDS: Cefazolin 2 GM in 0.9% Normal Saline 100 ML IV (11:20)
--- NOTE | 2022-09-07 11:26 | PCM.HP.STD ---
HPI - General HPI Narrative GRISELDA AVILA, is a 67 F who presents for a right partial nephrectomy she has a solid 2 cm right renal mass suspicious for cancer PFSH Medical History (Updated 09/07/22 @ 11:[address] Angel Luis Mckeon MD) Acute encephalopathy Alcohol dependence Alcohol use Blackout BPPV (benign paroxysmal positional vertigo) Cardiology follow-up encounter Depression Enlarged thyroid High cholesterol History of CVA (cerebrovascular accident) (2009) History of echocardiogram History of skin cancer Hyperlipidemia Kidney stones Nicotine dependence Pancreatitis, acute Pneumothorax, right (12/2018) Post-menopausal Skin cancer Smoker Stage 2 moderate COPD by GOLD classification Stroke/cerebrovascular accident Wears glasses Home Medications aspirin 81 mg tablet,delayed release 81 mg PO DAILY heart health 03/26/16 [History Last Taken 09/07/22] multivitamin,xi-mrxt-ruzpxiyg 27 mg-0.4 mg tablet 1 tab PO DAILYCM SUPPLEMENT 12/14/18 [History Last Taken 08/14/20] atorvastatin 40 mg tablet 40 mg PO QHS CHOLESTEROL 06/17/20 [History Last Taken 09/07/22] cholecalciferol (vitamin D3) 25 mcg (1,000 unit) capsule 25 mcg PO DAILY SUPPLEMENT 06/17/20 [History Last Taken 09/07/22] duloxetine 60 mg capsule,delayed release 60 mg PO BID DEPRESSION 06/17/20 [History Last Taken 09/07/22] docusate sodium 100 mg capsule (Colace) 100 mg PO BID #20 caps 09/07/22 [Rx Last Taken Unknown] oxycodone-acetaminophen 5 mg-325 mg tablet (Endocet) 1 tab PO Q6H PRN pain 7 days #14 tabs 09/07/22 [Rx Last Taken Unknown] Allergy/AdvReac Type Severity Reaction Status Date / Time atropine [From Lomotil] Allergy Other Verified 09/07/22 08:36 codeine Allergy Shortness Verified 09/07/22 08:36 of breath diphenoxylate [From Lomotil] Allergy Other Verified 09/07/22 08:36 latex AdvReac Rash Verified 09/07/22 08:36 Family History Sister Breast cancer Surgical History (Updated 08/26/22 @ 10:12 by Alexa Saleh) History of appendectomy History of left breast biopsy (08/2017) Hx of dilation and curettage Hx of hemorrhoidectomy Social History (Updated 11/12/20 @ 17:[address] Nicholas Gatica MD) Smoking Status: Current every day smoker tobacco type: cigarettes Tobacco: How many years used: 50 Electronic Cigarette Use: not used second hand exposure: Yes alcohol intake: former year quit: 2017 substance use type: does not use Vital Signs Vital Signs Vital Signs: 09/07/22 08:37 09/07/22 08:37 Temperature 98.4 F Temperature Source Temporal Pulse Rate 78 Respiratory Rate 18 Respiratory Pattern Normal Blood Pressure 111/59 L Blood Pressure Mean 76 Blood Pressure Source Monitor Blood Pressure Position Semi-Fowlers Blood Pressure Location Right Arm Pulse Ox 98 Oxygen Delivery Method Room Air Weight Weight: 58.967 kg Body Mass Index (BMI) 23.0 Results Lab / Micro Data Result Diagrams: 08/30/22 11:56 08/30/22 11:56
--- NOTE | 2022-09-07 11:27 | PCM.DC ---
Discharge Instructions Diet Discharge Diet: No restrictions, Light diet - advance as tolerated and Soft diet Activity Discharge Activity: May Not Drive Dressing / Incision Call your doctor if you observe: Fever of 101 or Higher Follow Up Care Please Follow Up With: Angel Luis Mckeon MD When: 2 weeks Test Results: Test results from this visit will be discussed in further detail at your follow-up appointment, if applicable. Discharge Plan Admission Primary Reason for Your Visit: right partial nephrectomy Attending Provider: Angel Luis Mckeon Primary Care Provider: Johnie Valdivia Consulting Providers: Arnel Walker Instructions Patient Instructions: Nephrectomy Dc Discharge Orders/Prescriptions Prescriptions: New docusate sodium [Colace] 100 mg capsule 100 mg PO BID Qty: 20 0RF oxycodone-acetaminophen [Endocet] 5-325 mg tablet 1 tab PO Q6H PRN (Reason: pain) 7 Days Qty: 14 0RF Continued duloxetine 60 mg capsule,delayed release(DR/EC) 60 mg PO BID atorvastatin 40 mg tablet 40 mg PO QHS cholecalciferol (vitamin D3) 25 mcg (1,000 unit) capsule 25 mcg PO DAILY multivitamin,bx-hids-lwseahef 1 TABLET tablet 1 tab PO DAILYCM Held aspirin 81 MG tablet,delayed release (DR/EC) 81 mg PO DAILY Hold Instructions: Resume on 09/21/22. Label Comments: heart [place],LAST DOSE 08/30/22 Referrals / Follow Up: Johnie Valdivia MD [Primary Care Provider] - Angel Luis Mckeon MD [Med Staff - Active Staff] - Disposition Disposition (needs filled in before D/C Order can be placed): Home, Self Care
[2022-09-07] MEDS: Bupivacaine 0.5% PF 10 ML VIAL (11:45)
--- NOTE | 2022-09-07 13:22 | PCM.OPRPT ---
Report of Operation Date of Procedure: 09/07/22 Pre-Operative Diagnosis: Right solid renal mass Post-Operative Diagnosis: Same Surgery/Procedure Performed:: Laparoscopic robotic assisted right partial nephrectomy Description of Surgical Findings:: Is a 67-year-old female was found to have a solid mass in the right kidney upper pole partially exophytic we discussed the options of management and she elected to have a robotic partial nephrectomy Patient was taken back to the operating room and the smooth induction of general anesthesia she was placed in dorsolithotomy position. A Bagley catheter was placed in the bladder. She was then positioned in modified right flank place axillary roll in place making sure all her pressure points were padded and under was under general anesthetic the abdomen was shaved prepped and draped in usual fashion and then I placed a camera port in the mid abdomen right arm left arm and the neck fourth arm just in case his knees needed. I then placed an air seal port and then we first dissected some adhesions from her prior appendectomy in the lower abdomen and then we docked the robot we reflected the colon off the kidney I then reflected the colon off the kidney work my way up to the kidney kocherized the duodenum and then use ultrasound was able to identify mass in the upper pole of the right kidney that was partially exophytic. Then dissected down to the renal hilum identified the renal vein and renal artery and once the renal artery was identified then we placed a clamp on the renal artery and then went back up to the mass and then the mass was excised from the kidney using cold excision and meticulous dissection and suction during the clamping of the artery after this was done then we used a V-Loc stitch to close small bleeding from the excision site. And then we ran the excision site with 0 Vicryl CT1 needle and with a continuous suture to reapproximate the edges of the excision site and then sliding the clips down to put pressure in the excision site after this was done then we unclamped the kidney clamp time was about 27 minutes and then the kidney pinked up immediately we then then placed Floseal in the excision site I did put 1 more stitch on the excision site to control small bleeders but then there was no more bleeding from the excision site. Blood loss at this point was 60 cc. We then irrigated copiously the kidney and there is no more evidence of bleeding we deflated the pneumoperitoneum were removed the tumor that was put in Endo Catch bag during the resection and this was extracted to the umbilical port and then we closed the umbilical port with a Doug Mireles stitch. Then all the ports were removed under direct visualization we looked back in the final time with very low pneumo and there was no bleeding from the excision site of the tumor and the kidney was intact and nice and pink and healthy and appear to be perfusing nicely. All the ports were removed closed the ports of subcuticular stitches anesthetic is being reversed and should be taken back to the PACU successful removal of tumor in the upper pole of the right kidney minimal blood loss. Surgeon: Angel Luis Mckeon Type of Anesthesia: General Drains: bagley
[2022-09-07] MEDS: Ketorolac 15 MG/ML Vial IV (15:22)
[2022-09-07] MEDS: 0.9% Normal Saline 1,000 ML 100 ML IV (16:59)
[2022-09-07] MEDS: HYDROcodone Bitartrate/Apap 5/325 Tablet PO (17:00)
[2022-09-07] MEDS: Morphine 2 MG/ML Syringe IV ×2 (18:26→22:45)
[2022-09-07] MEDS: Ondansetron 4 MG/2 ML Vial IV (18:26)
[2022-09-07] MEDS: Docusate Sodium 100 MG Capsule 200 MG PO (22:38)
[2022-09-07] MEDS: 0.9% Saline Lock 10 ML Syringe IV (22:45)
[2022-09-08 02:17] VITALS: BP 112/50; PULSE 84; RESP 18; TEMP 36.6; O2SAT 93
[2022-09-08] MEDS: 0.9% Normal Saline 1,000 ML 100 ML IV (02:19)
[2022-09-08] MEDS: HYDROcodone Bitartrate/Apap 5/325 Tablet PO ×2 (02:22→08:44)
[2022-09-08 06:03] VITALS: BP 109/45; PULSE 72; RESP 18; TEMP 36.4; O2SAT 92
[2022-09-08] MEDS: Ketorolac 15 MG/ML Vial IV (06:12)
[2022-09-08] MEDS: 0.9% Saline Lock 10 ML Syringe IV (06:12)
[2022-09-08 07:02] VITALS: O2SAT 92
[2022-09-08 07:15] LABS: Hematocrit 34.8 % (37-47); Hemoglobin 11.6 g/dL (12.0-15.0); Mean Corp Hgb Conc 33.3 g/dL (32-36); Mean Corpuscular Volume 89.9 fL (81-99); Mean Platelet Vol. 9.7 fl (6.2-12.0); Platelet Count 231 K/mm3 (150-450); RBC Distribution Width CV 11.9 % (11.6-14.6); RBC Distribution Width SD 39.3 fl (35.1-43.9); Red Blood Count 3.87 M/mm3 (4.2-5.4); White Blood Count 17.8 K/mm3 (4.4-11.0)
[2022-09-08 07:53] LABS: Anion Gap 7 (5-15); BUN 16 mg/dL (7-18); BUN/Creat Ratio 20.3 RATIO (10-20); Calcium,Total 8.1 mg/dL (8.5-10.1); Chloride 109 mmol/L (98-107); Creatinine, Serum 0.79 mg/dL (0.55-1.02); EST Glomerular Filtration Rate 77 mL/min (>60); Est Glom Filt Rate - Afr Amer 93 mL/min (>60); Estimated Creatinine Clearance 43.92 ml/min; Glucose 117 mg/dL (74-106); Potassium 3.9 mmol/L (3.5-5.1); Sodium Level 140 mmol/L (136-145)
--- NOTE | 2022-09-08 08:25 | NURSING ---
@ approx 0800 f/c dc'd without incident
[2022-09-08 08:39] VITALS: BP 126/71; PULSE 77; RESP 18; TEMP 37.1; O2SAT 95
[2022-09-08] MEDS: Docusate Sodium 100 MG Capsule 200 MG PO (08:45)
[2022-09-08 09:27] VITALS: BP 126/71; PULSE 77; RESP 18; TEMP 36.6; O2SAT 93
--- NOTE | 2022-09-08 10:56 | CASEMGMT ---
NIK MONK Assessment: Face to Face with pt for initial transition planning/care coordination assessment. RN ALESHIA introduced self and role at [facility], pt voices understanding and consents to assessment. Pt is A/O x4 and answers all questions appropriately at this time. Pt sitting up in chair in no distress. Care providers, pharmacy, and demographics verified/updated. Admitting Dx: lap robotic partial nephrectomy right PCP:Shea Specialists:vanessa Mckeon Pharmacy: [facility] Insurance: [facility] Prescription Benefit: yes LNOK: Javire Hernandez, ; Roscoe Hernandez, son Living Arrangements: Pt lives with in a two story home with 3 steps to enter with a rail. Pt reports she is I in ADL's and denies concerns at home. Transportation: Pt drives self and denies concerns with transportation. DME/HHC/SNF: Pt denies having any DME in the home, previous HHC or SNF stays. Pt states no concerns with going home at time of dc. Pt states no further concerns/needs. CM to follow. Advised pt to ask CM if any further question/concerns/needs arise, voices understanding. Pt Goal: Home Plan: Home
== END 2022-09-08 13:14 | disposition home or self-care (01) ==
LOC: SDC 14:25 → MS3 22:05
PROVIDERS: Anesthesiology; Admitting Provider Urology; PCP Family Medicine; Referring Provider Urology; Visit Provider Urology
PROC: (CPT 50543; principal; 2022-09-07 09:45)
DX: C64.1 Malignant neoplasm of right kidney, except renal pelvis (principal); J44.9 Chronic obstructive pulmonary disease, unspecified; E78.00 Pure hypercholesterolemia, unspecified; F17.210 Nicotine dependence, cigarettes, uncomplicated; Z90.49 Acquired absence of other specified parts of digestive tract; Z79.82 Long term (current) use of aspirin; Z79.899 Other long term (current) drug therapy; Z86.73 Personal history of transient ischemic attack (TIA), and cerebral infarction without residual deficits; E55.9 Vitamin D deficiency, unspecified
CPT/HCPCS: 50543; S2900; 00862; 36415; 80048; 85027; 88307; 93005; 94668; 94762; 96361; 96374; 96375; 96376; 99221; 99252; J7030; J7120; A4216; G0378; G0463; J2405

== ENCOUNTER 2022-09-18 08:19 | Emergency (ER) | payer MEDICARE, SELFPAY ==
[2022-09-18 08:20] VITALS: BP 134/71; PULSE 110; RESP 18; TEMP 35.8; O2SAT 98; BMI 23.0
[2022-09-18 08:22] VITALS: BP 135/70; PULSE 84; RESP 20; TEMP 36.6; O2SAT 97
--- NOTE | 2022-09-18 08:42 | CT_ITS ---
EXAM: CT ABDOMEN AND PELVIS WITHOUT INTRAVENOUS CONTRAST CLINICAL INDICATION: Left flank pain. Right partial nephrectomy for cancer on 09/07/2022. TECHNIQUE: Helically acquired images were obtained of the abdomen and pelvis without intravenous contrast. This CT exam was performed using one or more of the following dose reduction techniques: automated exposure control, adjustment of the mA and/or kV according to patient size, and/or use of iterative reconstruction technique. This report was created using [employer] report generation technology. RADIATION DOSE: CTDIvol = 6.06 mGy, DLP = 284.45 mGy-cm COMPARISON: CT abdomen and pelvis with contrast 12/14/2018. FINDINGS: LOWER THORAX: Small hiatal hernia. Lung bases are clear. No cardiomegaly. No significant pericardial effusion. ABDOMEN: LIVER: Small hypodense cysts in the left hepatic lobe is unchanged. GALLBLADDER AND BILE DUCTS: Unremarkable. No calcified gallstones. No gallbladder distention or wall edema. No intra- or extrahepatic biliary ductal dilation. PANCREAS: Unremarkable. No focal cystic mass. SPLEEN: Unremarkable. Normal size without focal cystic or solid mass. ADRENALS: Unremarkable. No nodules. KIDNEYS AND URETERS: Mild left hydronephrosis presumably due to 2.4 mm radiopaque stone in the left-sided posterior lateral bladder wall. No stones in the left kidney. Prominent right anterior renal parenchyma containing curvilinear hyperdensities atypical for calcifications. This is a new finding. No right hydronephrosis. Normal renal size and position. STOMACH AND BOWEL: Unremarkable. No stomach or bowel distention. No focal inflammatory change. PELVIS: APPENDIX: Normal. BLADDER: Unremarkable. REPRODUCTIVE: Unremarkable as visualized. No mass. ABDOMEN and PELVIS: INTRAPERITONEAL SPACE: Unremarkable. No ascites or other fluid collection. No free air. BONES/JOINTS: Unremarkable. No suspicious lytic or blastic abnormality. SOFT TISSUES: Soft tissue air in the right lower anterior abdominal wall and right upper anterior pelvic wall overlying surgical clips. No discrete abdominal or pelvic wall hernia. VASCULATURE: Unremarkable. Abdominal aorta is non-dilated. LYMPH NODES: Unremarkable. No enlarged lymph nodes. CT/Abdomen/Pelvis without Cont IMPRESSION: 1. Left hydronephrosis suspicious for secondary to recently passed 2.4 mm stone inside the left posterior urinary bladder wall. 2. Prominent right anterior renal parenchyma containing curvilinear hyperdensities may be related to recent partial nephrectomy. Comparison with more recent CT abdomen and pelvis will be helpful if available. This is a new finding when compared to 12/24/2018. 3. Postoperative air in the right lower anterior abdominal wall and right upper anterior pelvic wall. Electronically Signed: Brayden Negron MD at 9:35 EST ,
--- NOTE | 2022-09-18 08:43 | EDS_ITS ---
HPI History of Present Illness Chief Complaint: Flank Pain Detail of Chief Complaint: Flank pain Informant: patient and spouse/S.O. Narrative Narrative: Patient presents with left flank pain that started around 4:30 AM. Pain came on suddenly and woke patient up. Patient rates her pain a 10 out of 10. She had nausea and dry heaves. Patient denies frequency, urgency, or hematuria. She has had prior history of kidney stones. Patient tells me that September for she had surgery to remove a mass off her right kidney. Patient denies any fevers. Prior similar symptoms: Yes PFSH PFSH Medical History (Updated 09/18/22 @ 10:[address] 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 classification Stroke/cerebrovascular accident Wears glasses Home Medications aspirin 81 mg tablet,delayed release 81 mg PO DAILY heart health 03/26/16 [History Last Taken 09/07/22] multivitamin,vt-iljt-cjbpraax 27 mg-0.4 mg tablet 1 tab PO DAILYCM SUPPLEMENT 12/14/18 [History Last Taken 08/14/20] atorvastatin 40 mg tablet 40 mg PO QHS CHOLESTEROL 06/17/20 [History Last Taken 09/07/22] cholecalciferol (vitamin D3) 25 mcg (1,000 unit) capsule 25 mcg PO DAILY SUPPLEMENT 06/17/20 [History Last Taken 09/07/22] duloxetine 60 mg capsule,delayed release 60 mg PO BID DEPRESSION 06/17/20 [H istory Last Taken 09/07/22] docusate sodium 100 mg capsule (Colace) 100 mg PO BID #20 caps 09/07/22 [Rx Last Taken Unknown] oxycodone-acetaminophen 5 mg-325 mg tablet (Endocet) 1 tab PO Q6H PRN pain 7 days #14 tabs 09/07/22 [Rx Last Taken Unknown] ondansetron 4 mg disintegrating tablet 4 mg PO Q8H PRN PRN Nausea #10 tabs 09/18/22 [Rx Last Taken Unknown] oxycodone-acetaminophen 5 mg-325 mg tablet 1 tab PO Q6H PRN PRN Pain 3 days #12 TABLETS 09/18/22 [Rx Last Taken Unknown] sulfamethoxazole 800 mg-trimethoprim 160 mg tablet 1 tab PO BID #6 TABLETS 09/18/22 [Rx Last Taken Unknown] Allergy/AdvReac Type Severity Reaction Status Date / Time atropine [From Lomotil] Allergy Other Verified 09/18/22 08:22 codeine Allergy Shortness Verified 09/18/22 08:22 of breath diphenoxylate [From Lomotil] Allergy Other Verified 09/18/22 08:22 latex AdvReac Rash Verified 09/18/22 08:22 Family History Sister Breast cancer Surgical History History of appendectomy History of left breast biopsy (08/2017) Hx of dilation and curettage Hx of hemorrhoidectomy Social History Smoking Status: Current every day smoker tobacco type: cigarettes Tobacco: How many years used: 50 Electronic Cigarette Use: not used second hand exposure: Yes alcohol intake: former year quit: 2017 substance use type: does not use ROS ROS ED Review of Systems ROS Unobtainable: other Constitutional Constitutional ED: Reports lethargy; Denies chills, fever(s), sweats or weight loss Eyes Eyes: Denies blurry vision, change in vision or diplopia ENT ENT ED: Denies rhinorrhea or sore throat Cardiovascular Cardiovascular: Reports chest pain and racing heartbeat; Denies orthopnea Respiratory/Chest Respiratory/Chest: Reports dyspnea and dyspnea on exertion; Denies cough, orthopnea or sputum Gastrointestinal Gastrointestinal: Reports abdominal pain, nausea and vomiting; Denies diarrhea Genitourinary Genitourinary ED: Denies dysuria, hematuria or urinary frequency Musculoskeletal Musculoskeletal: Reports back pain; Denies arthralgias, myalgias or neck pain Integumentary Denies abscess, Abrasions or rash Neurologic Neurologic: Denies headache(s) or weakness Psychiatric Psychiatric: Denies anxiety, depression or suicidal thoughts Endocrine Endocrinology: Denies polydipsia, polyphagia or polyuria Hematologic/Lymphatic Hematologic/Lymphatic: Denies easy bleeding, easy bruising or lymphadenopathy Allergic/Immunologic Allergic/Immunologic ED: Denies mouth swelling, tongue swelling or urticaria EXAM Physical Exam Const Vital Signs: 09/18/22 08:20 09/18/22 08:22 09/18/22 09:38 Temperature 96.5 F L 97.8 F Temperature Source Temporal Temporal Pulse Rate 110 H 84 94 Respiratory Rate 18 20 H 20 H Blood Pressure 134/71 H 135/70 H 139/64 H Blood Pressure Mean 92 91 89 Pulse Ox 98 97 98 Oxygen Delivery Method Room Air Room Air Room Air 09/18/22 10:47 Temperature Temperature Source Pulse Rate 90 Respiratory Rate 18 Blood Pressure Blood Pressure Mean Pulse Ox 98 Oxygen Delivery Method Room Air Positive well nourished and well developed General Appearance ED: well developed and NAD HEENT Reports TM's clear and moist mucous membranes normocephalic and atraumatic; Negative for trauma or tenderness Tympanic Membrane ED: Yes TM's clear Eyes PERRL and EOMs intact bilaterally General Eye ED: Negative for pale conjunctiva or scleral icterus Neck no lymphadenopathy, supple and no JVD General: Negative for tenderness Chest Wall inspection of chest normal and palpation of chest normal Chest: Negative for tenderness Resp normal respiratory effort and clear to auscultation bilaterally Effort and Inspection: Negative for respiratory distress or pain with movement Auscultation: Negative for rhonchi, wheezes or diminished lung sounds Cardio regular rate, regular rhythm, S1 normal heart sound, S2 normal heart sound and no murmurs Peripheral Pulses: pulses 2+ throughout GI normal to inspection, nondistended, normoactive bowel sounds, soft to palpation, non-distended and no masses GI Narrative: Tenderness palpation over the left lower quadrant and suprapubic region with some guarding. There is no rebound, rigidity, or. Signs. Back/Spine no thoracic nor lumbar tenderness Back/Spine Narrative: Patient has left CVA tenderness. Extremity normal to inspection General Extremety ED: Negative for edema General Extremity: Negative for edema Neuro oriented x3, CN's II-XII intact bilaterally, no sensory deficits noted and gait normal Sensorium / Orientation: awake, alert, oriented to person, oriented to place and oriented to time Motor Exam: strength 5/5 throughout and strength abnormal Psych mental status grossly normal Skin no rashes or lesions noted and no wounds MDM MDM MDM Narrative Medical decision making narrative: Patient on arrival. Patient presented with symptoms concerning for kidney stone. She was given Toradol as well as Dilaudid and Zofran. She had good pain relief with that. Patient's pain then started to return and she received 4 mg of morphine. CBC with differential showed a white count of 15, hemoglobin 13, hematocrit 40, platelets of 381. Chemistries unremarkable. Urinalysis was posi tive for nitrites and 5-10 WBCs and +2 bacteria. I did send off a culture. Patient was given Bactrim DS [address] flank obtained showed a 2.5 mm stone in the bladder with some left-sided hydronephrosis likely from recently passed stone. I discussed case with patient's urologist Dr. Haresh Mckeon who also evaluated her CT scan. At this point we will send her home with urine strainers and pain medications as well as Bactrim. She is advised to return if worsening pain, fever, vomiting, or condition worsening way. She actually has an appointment to see her urologist in 2 days. Lab Data Attestation: I reviewed the patient's lab results. Labs: Laboratory Results - last 24 hr 09/18/22 09/18/22 09/18/22 08:30 08:30 09:50 WBC 15.0 H RBC 4.58 Hgb 13.3 Hct 40.4 MCV 88.2 MCH 29.0 MCHC 32.9 RDW Std Deviation 37.6 RDW Coeff of Kelsie 11.8 Plt Count 381 MPV 9.0 Immature Gran % (Auto) 0.300 Neut % (Auto) 89.2 H Lymph % (Auto) 8.4 L [place] % (Auto) 1.3 Eos % (Auto) 0.5 Baso % (Auto) 0.3 Absolute Neuts (auto) 13.4 H Absolute Lymphs (auto) 1.26 Nucleated RBC % 0 Sodium 142 Potassium 3.6 Chloride 108 H Carbon Dioxide 27.0 Anion Gap 7 BUN 17 Creatinine 0.86 Estim Creat Clear Calc 51.07 Est GFR (MDRD) Af Amer 85 Est GFR (MDRD) Non-Af 70 BUN/Creatinine Ratio 19.9 Glucose 125 H Calcium 9.3 Urine Color Yellow Urine Clarity Clear Urine pH 6.5 Ur Specific [place] 1.010 Urine Protein Negative Urine Glucose (UA) Normal Urine Ketones Negative Urine Occult Blood 250 H Urine Nitrite Positive H Urine Bilirubin Negative Urine Urobilinogen Normal Ur Leukocyte Esterase 100 H Urine RBC 0 SEEN Urine WBC 5-10 SEEN Ur Squamous Epith Cells 0 SEEN Urine Bacteria 2+ Urine Mucus 0 SEEN Radiography Diagnostic Testing: Clinical Impression(s) from Imaging Studies Abdomen/Pelvis CT 09/18/22 08:42 IMPRESSION: 1. Left hydronephrosis suspicious for secondary to recently passed 2.4 mm stone inside the left posterior urinary bladder wall. 2. Prominent right anterior renal parenchyma containing curvilinear hyperdensities may be related to recent partial nephrectomy. Comparison with more recent CT abdomen and pelvis will be helpful if available. This is a new finding when compared to 12/24/2018. 3. Postoperative air in the right lower anterior abdominal wall and right upper anterior pelvic wall. Electronically Signed: Brayden Negron MD at 9:35 EST , Discharge Plan Triage Chief Complaint: Flank Pain ED Provider: Day Ruano Dx/Rx/DC Orders Clinical Impression: Urolithiasis, Acute UTI Instructions: ED Cystitis Female Adult, ED Kidney Stone w/ Colic Prescriptions: New sulfamethoxazole-trimethoprim [sulfamethoxazole-trimethoprim] 800-160 mg tablet 1 tab PO BID Qty: 6 0RF oxycodone-acetaminophen [oxycodone-acetaminophen] 5-325 mg tablet 1 tab PO Q6H PRN PRN (Reason: Pain) 3 Days Qty: 12 0RF ondansetron [ondansetron] 4 mg tablet,disintegrating 4 mg PO Q8H PRN PRN (Reason: Nausea) Qty: 10 0RF No Action duloxetine 60 mg capsule,delayed release(DR/EC) 60 mg PO BID atorvastatin 40 mg tablet 40 mg PO QHS cholecalciferol (vitamin D3) 25 mcg (1,000 unit) capsule 25 mcg PO DAILY aspirin 81 MG tablet,delayed release (DR/EC) 81 mg PO DAILY Hold Instructions: Resume on 09/21/22. Label Comments: heart [employer],LAST DOSE 08/30/22 multivitamin,vb-fguo-xrayefer 1 TABLET tablet 1 tab PO DAILYCM docusate sodium [Colace] 100 mg capsule 100 mg PO BID Qty: 20 0RF oxycodone-acetaminophen [Endocet] 5-325 mg tablet 1 tab PO Q6H PRN (Reason: pain) 7 Days Qty: 14 0RF Primary Care Provider: Johnie Valdivia Referrals: Johnie Valdivia MD [Primary Care Provider] - Angel Luis Mckeon MD [Med Staff - Active Staff] - 3-5 Days Disposition Disposition: Home, Self Care
[2022-09-18] MEDS: Ondansetron 4 MG/2 ML Vial IV (08:47)
[2022-09-18] MEDS: Ketorolac 15 MG/ML Vial IV (08:48)
[2022-09-18] MEDS: HYDROmorphone 1 MG/ML Syringe IV (08:49)
[2022-09-18] MEDS: 0.9% Normal Saline 1,000 ML 150 ML IV (08:50)
[2022-09-18 09:00] LABS: Absolute Lymphocyte Count 1.26 X10^3/uL (0.83-4.51); Absolute Neutrophil Count 13.4 X10^3/uL (2.0-7.7); Basophil# 0.05 X10^3/uL; Basophil% 0.3 % (0-1); Eosinophil# 0.07 X10^3/uL; Eosinophils% 0.5 % (0-5); Hematocrit 40.4 % (37-47); Hemoglobin 13.3 g/dL (12.0-15.0); Lymphocyte # 1.26 X10^3/ul (0.83-4.51); Lymphocyte % 8.4 % (19-41); Mean Corp Hgb Conc 32.9 g/dL (32-36); Mean Corpuscular Volume 88.2 fL (81-99); Monocyte# 0.19 X10^3/uL; Monocyte% 1.3 % (0-10); NRBC Flagged by Analyzer 0 % (0-5); Neutrophil # 13.41 X10^3/uL (2.7-7.7); Neutrophil % 89.2 % (47-70); Platelet Count 381 K/mm3 (150-450); RBC Distribution Width CV 11.8 % (11.6-14.6); RBC Distribution Width SD 37.6 fl (35.1-43.9); Red Blood Count 4.58 M/mm3 (4.2-5.4)
[2022-09-18 09:31] LABS: Anion Gap 7 (5-15); BUN 17 mg/dL (7-18); BUN/Creat Ratio 19.9 RATIO (10-20); Calcium,Total 9.3 mg/dL (8.5-10.1); Chloride 108 mmol/L (98-107); Creatinine, Serum 0.86 mg/dL (0.55-1.02); EST Glomerular Filtration Rate 70 mL/min (>60); Est Glom Filt Rate - Afr Amer 85 mL/min (>60); Estimated Creatinine Clearance 51.07 ml/min; Glucose 125 mg/dL (74-106); Potassium 3.6 mmol/L (3.5-5.1); Sodium Level 142 mmol/L (136-145)
[2022-09-18 09:38] VITALS: BP 139/64; PULSE 94; RESP 20; O2SAT 98
[2022-09-18 09:52] LABS: Mucous, Urine 0 SEEN /hpf (<or=2+); Red Blood Cells-Urine 0 SEEN /hpf (0-5); Squamous Epithelial Cells - UA 0 SEEN /hpf (5-10)
[2022-09-18 09:59] LABS: Color, Urine Yellow (Yellow); Glucose, Dipstick Normal (Normal); Ketone-Dipstick Negative (Negative); Leukocyte Esterase-Dipstick 100 /ul (Negative); Nitrite-Dipstick Positive (Negative); Occult Blood-Urine 250 /ul (Negative); Protein-Dipstick Negative (Negative); Urine Bilirubin Dipstick Negative (Negative); Urine Clarity Clear (Clear); Urine Urobilinogen Normal (Normal); Urine pH 6.5 (5.0 - 8.0)
[2022-09-18 10:13] LABS: Bacteria 2+ /hpf (None Seen); White Blood Cells 5-10 SEEN /hpf (0-5)
[2022-09-18] MEDS: Morphine 4 MG/ML Syringe IV (10:44)
[2022-09-18 10:47] VITALS: PULSE 90; RESP 18; O2SAT 98
[2022-09-18] MEDS: Smz/Tmp Ds Tablet 1 TABLET PO (11:00)
[2022-09-18 11:07] VITALS: BP 130/68; PULSE 76; RESP 18; O2SAT 97
== END 2022-09-18 11:10 | disposition home or self-care (01) ==
PROVIDERS: Emergency Provider Emergency Medicine; PCP Family Medicine; Visit Provider Emergency Medicine
DX: N20.9 Urinary calculus, unspecified (principal); N39.0 Urinary tract infection, site not specified; F17.210 Nicotine dependence, cigarettes, uncomplicated; Z86.73 Personal history of transient ischemic attack (TIA), and cerebral infarction without residual deficits
CPT/HCPCS: 96375; 96374; 99283; 74176; 80048; 81001; 85025; 87077; 87086; 87088; J7030; A4216; J2405

== ENCOUNTER 2022-09-18 22:21 | Inpatient (IN) | payer MEDICARE, SELFPAY ==
[2022-09-18 22:21] VITALS: BP 91/76; PULSE 110; RESP 16; TEMP 37.3; O2SAT 94; BMI 23.9
[2022-09-18] MEDS: Ondansetron 4 MG/2 ML Vial IV (22:57)
[2022-09-18] MEDS: Morphine 4 MG/ML Syringe IV (22:58)
[2022-09-18] MEDS: 0.9% Normal Saline 1,000 ML 999 ML IV (22:59)
[2022-09-18 23:07] LABS: Absolute Lymphocyte Count 0.83 X10^3/uL (0.83-4.51); Absolute Neutrophil Count 18.7 X10^3/uL (2.0-7.7); Basophil# 0.05 X10^3/uL; Basophil% 0.2 % (0-1); Eosinophil# 0.02 X10^3/uL; Eosinophils% 0.1 % (0-5); Hematocrit 34.5 % (37-47); Hemoglobin 11.3 g/dL (12.0-15.0); Lymphocyte # 0.83 X10^3/ul (0.83-4.51); Lymphocyte % 3.9 % (19-41); Mean Corp Hgb Conc 32.8 g/dL (32-36); Mean Corpuscular Hgb 29.2 pg (27.0-32.0); Mean Corpuscular Volume 89.1 fL (81-99); Mean Platelet Vol. 8.9 fl (6.2-12.0); Monocyte# 1.54 X10^3/uL; Monocyte% 7.3 % (0-10); NRBC Flagged by Analyzer 0 % (0-5); Neutrophil # 18.65 X10^3/uL (2.7-7.7); Neutrophil % 87.9 % (47-70); POSITIVE DIFFERENTIAL YES; Platelet Count 288 K/mm3 (150-450); RBC Distribution Width SD 38.5 fl (35.1-43.9); Red Blood Count 3.87 M/mm3 (4.2-5.4); White Blood Count 21.2 K/mm3 (4.4-11.0)
[2022-09-18 23:19] LABS: Differential Indicated SCAN CRITERIA MET
[2022-09-18 23:20] LABS: Anion Gap 8 (5-15); BUN 14 mg/dL (7-18); BUN/Creat Ratio 15.2 RATIO (10-20); Calcium,Total 8.5 mg/dL (8.5-10.1); Chloride 109 mmol/L (98-107); Creatinine, Serum 0.92 mg/dL (0.55-1.02); EST Glomerular Filtration Rate 64 mL/min (>60); Est Glom Filt Rate - Afr Amer 77 mL/min (>60); Estimated Creatinine Clearance 47.74 ml/min; Glucose 122 mg/dL (74-106); Potassium 3.7 mmol/L (3.5-5.1); Sodium Level 140 mmol/L (136-145)
[2022-09-18 23:26] LABS: Differential Comment SCANNED
[2022-09-18] MEDS: Ceftriaxone 1 GM/50 ML BAG IV (23:49)
[2022-09-19] VITALS (13 sets, daily range): BP systolic 95–119; BP diastolic 50–60; PULSE 75–101; RESP 15–20; TEMP 36.4–38.3; O2SAT 86–98; BMI 24.3
[2022-09-19] LABS: Mucous, Urine 0 SEEN /hpf (<or=2+)
[2022-09-19] MEDS: fentaNYL 100 MCG/2 ML Ampul 25 MCG IV
[2022-09-19 00:15] LABS: Lactic Acid 1.5 mmol/L (0.4-1.9)
[2022-09-19 00:22] LABS: Color, Urine Yellow (Yellow); Glucose, Dipstick Normal (Normal); Ketone-Dipstick Negative (Negative); Leukocyte Esterase-Dipstick 100 /ul (Negative); Nitrite-Dipstick Negative (Negative); Occult Blood-Urine 250 /ul (Negative); Protein-Dipstick 30 mg/dl (Negative); Urine Bilirubin Dipstick Negative (Negative); Urine Clarity Clear (Clear); Urine Urobilinogen Normal (Normal)
[2022-09-19 00:46] LABS: Bacteria 1+ /hpf (None Seen); Red Blood Cells-Urine 0-5 SEEN /hpf (0-5); White Blood Cells 5-10 SEEN /hpf (0-5)
--- NOTE | 2022-09-19 02:57 | HP.PCM.HOS_ITS ---
[facility] - General General Date of Admission: 09/19/22 Date of Service: 09/19/22 Chief Complaint: Left flank pain. [facility] Narrative GRISELDA AVILA, is a 67 F with a significant history of alcoholism now sober for 4 years; tobacco abuse; a kidney mass removal from the right kidney on September 07, 2022 who presents to the emergency department with excruciating left flank pain that started on the same day of presentation and progressively got worse. This is patient's second visit to the emergency department in 1 day. On her first visit patient was treated for UTI. Imaging showed stone in her bladder. The assumption was that she had passed the stone. Case was discussed with Dr. Mckeon who was okay with patient being discharged home and to follow-up with previously scheduled appointment in 2 days. On discharge patient was prescribed antibiotics and pain medicines. Also she was sent home on strainers. However patient could not leaf size picker her prescriptions because her pharmacy had closed. When she went home her pain became excruciating and she could not keep anything down. Her pain is sharp. Her pain radiates to her left shoulder. Her pain radiates to her left shoulder. Associated with her symptoms is nausea and vomiting. She felt dehydrated. With continued symptoms patient came back to the emergency department. On her second visit to the emergency department patient had soft blood pressures and she received IV fluid boluses. Her white count had dramatically increased. [facility] Medical History Acute encephalopathy Alcohol dependence Alcohol use Blackout BPPV (benign paroxysmal positional vertigo) Cardiology follow-up encounter Depression Enlarged thyroid High cholesterol History of CVA (cerebrovascular accident) (2009) History of echocardiogram History of skin cancer Hyperlipidemia Kidney stones Nicotine dependence Pancreatitis, acute Pneumothorax, right (12/2018) Post-menopausal Skin cancer Smoker Stage 2 moderate COPD by GOLD classification Stroke/cerebrovascular accident Wears glasses Home Medications aspirin 81 mg tablet,delayed release 81 mg PO DAILY heart health 03/26/16 [History Last Taken 09/07/22] multivitamin,iz-oflg-iurhuaxi 27 mg-0.4 mg tablet 1 tab PO DAILYCM SUPPLEMENT 12/14/18 [History Last Taken 08/14/20] atorvastatin 40 mg tablet 40 mg PO QHS CHOLESTEROL 06/17/20 [History Last Taken 09/07/22] cholecalciferol (vitamin D3) 25 mcg (1,000 unit) capsule 25 mcg PO DAILY SUPPLEMENT 06/17/20 [History Last Taken 09/07/22] duloxetine 60 mg capsule,delayed release 60 mg PO BID DEPRESSION 06/17/20 [History Last Taken 09/07/22] docusate sodium 100 mg capsule (Colace) 100 mg PO BID #20 caps 09/07/22 [Rx Last Taken Unknown] oxycodone-acetaminophen 5 mg-325 mg tablet (Endocet) 1 tab PO Q6H PRN pain 7 days #14 tabs 09/07/22 [Rx Last Taken Unknown] ondansetron 4 mg disintegrating tablet 4 mg PO Q8H PRN PRN Nausea #10 tabs 09/18/22 [Rx Last Taken Unknown] sulfamethoxazole 800 mg-trimethoprim 160 mg tablet 1 tab PO BID #6 TABLETS 07/29 [Rx Last Taken Unknown] Allergy/AdvReac Type Severity Reaction Status Date / Time atropine [From Lomotil] Allergy Other Verified 09/18/22 22:24 codeine Allergy Shortness Verified 09/18/22 22:24 of breath diphenoxylate [From Lomotil] Allergy Other Verified 09/18/22 22:24 latex AdvReac Rash Verified 09/18/22 22:24 Family History Sister Breast cancer Surgical History History of appendectomy History of left breast biopsy (08/2017) Hx of dilation and curettage Hx of hemorrhoidectomy Social History Smoking Status: Current every day smoker tobacco type: cigarettes Tobacco: How many years used: 50 Electronic Cigarette Use: not used second hand exposure: Yes alcohol intake: former year quit: 2017 substance use type: does not use ROS ROS Narrative Pertinent positives and pertinent negatives as noted in HPI. All other systems were reviewed and are negative Vital Signs Vital Signs Vital Signs: 09/18/22 22:21 09/19/22 00:04 09/19/22 00:15 Temperature 99.2 F H Temperature Source Temporal Pulse Rate 110 H 101 H Respiratory Rate 16 15 Blood Pressure 91/76 110/54 L Blood Pressure Mean 81 72 Pulse Ox 94 92 86 Oxygen Delivery Method Room Air Room Air Room Air Oxygen Flow Rate (L/min) 09/19/22 00:20 09/19/22 01:26 Temperature Temperature Source Pulse Rate 91 96 Respiratory Rate 15 15 Blood Pressure 113/52 L 113/57 L Blood Pressure Mean 72 75 Pulse Ox 94 91 Oxygen Delivery Method Nasal Cannula Oxygen Flow Rate (L/min) 2 Weight Weight: 61.235 kg Body Mass Index (BMI) 23.9 Physical Exam Narrative Physical exam: General: Well-nourished, well-developed. Head: Normocephalic, atraumatic, no tenderness Eyes: Vision is grossly intact. EOMI ENT, no trauma, moist mucous membranes, no rhinorrhea Neck: Nontender, No thyromegaly. CVS: Regular rate and rhythm. S1-S2 present. No murmur, gallop or rub. Respiratory : clear to auscultation bilaterally, chest wall nontender, no wheezing Abdomen: Soft, nontender, nondistended, normal bowel sounds, no masses. Bilateral CVA tenderness; right worse than left. : Deferred Back: Nontender, no CVA tenderness, no midline spinal tenderness. Extremities: Nontender full range of motion, no trauma Skin: Steri-Strips on right side of abdomen. Normal color, no trauma, abrasions Neuro: Alert, oriented, cranial nerves II through XII grossly intact. Psychiatry: Normal mood. Normal affect. Not depressed. Not anxious. Results Lab / Micro Data Result Diagrams: 09/18/22 22:55 09/18/22 22:55 Labs: Laboratory Results - last 24 hr 09/18/22 22:55: WBC 21.2 H, RBC 3.87 L, Hgb 11.3 L, Hct 34.5 L, MCV 89.1, MCH 29.2, MCHC 32.8, RDW Std Deviation 38.5, RDW Coeff of Kelsie 12.0, Plt Count 288, MPV 8.9, Immature Gran % (Auto) 0.600, Neut % (Auto) 87.9 H, Lymph % (Auto) 3.9 L, [place] % (Auto) 7.3, Eos % (Auto) 0.1, Baso % (Auto) 0.2, Absolute Neuts (auto) 18.7 H, Absolute Lymphs (auto) 0.83, Nucleated RBC % 0, Differential Comment SCANNED, Diff Path Review December09/18/22 22:55: Sodium 140, Potassium 3.7, Chloride 109 H, Carbon Dioxide 23.0, Anion Gap 8, BUN 14, Creatinine 0.92, Estim Creat Clear Calc 47.74, Est GFR (MDRD) Af Amer 77, Est GFR (MDRD) Non-Af 64, BUN/Creatinine Ratio 15.2, Glucose 122 H, Calcium 8.5 09/18/22 23:40: Lactic Acid 1.5 09/18/22 23:40: Urine Color Yellow, Urine Clarity Clear, Urine pH 6.0, Ur Specific [place] 1.010, Urine Protein 30 H, Urine Glucose (UA) Normal, Urine Ketones Negative, Urine Occult Blood 250 H, Urine Nitrite Negative, Urine Bilirubin Negative, Urine Urobilinogen Normal, Ur Leukocyte Esterase 100 H, Urine RBC 0-5 SEEN, Urine WBC 5-10 SEEN, Ur Squamous Epith Cells Not Reportable, Urine Bacteria 1+, Urine Mucus 0 SEEN Assessment & Plan Assessment/Plan (1) Acute pyelonephritis: (2) Hydronephrosis: PLAN: Plan Acute pyelonephritis with hydronephrosis Abdomen and pelvis CT with left hydronephrosis suspicious for recently passed 2.4 mm stone inside left posterior urinary bladder wall. Partial nephrectomy. Abdomen and pelvis CT was independently interpreted and I agree with radiologist interpretation. Urinalysis in a.m. of 09/18/2022 and PM of 09/18/2022 abnormal. Urine culture ordered in a.m., follow. Blood culture ordered in p.m., follow. With soft blood pressures IV fluid boluses ordered. Trend blood pressure. Ceftriaxone ordered. Urology consult. Trend CBC and BMP. Morphine IV as needed and Toradol IV as needed ordered for pain. Keep NPO. CBC in a.m. on day of presentation was 15. CBC in p.m. of the day of presentation was 21.2. Trend CBC. IV Rocephin ordered. Tobacco abuse Counseled Decline nicotine patch DVT prophylaxis: SCDs ordered. Charges/Coding Visit Charges Inpatient E&M: 79473 Init Hosp L3
--- NOTE | 2022-09-19 03:05 | EDS_ITS ---
HPI History of Present Illness Chief Complaint: General Illness Narrative Narrative: Patient is a 67-year-old female with history of kidney stones. She had her right kidney removed by Dr. Mckeon September 07. She states but that on September 18 she developed left-sided pain that felt similar nature to her kidney stone and therefore came to the ER for evaluation. At that time she had a noncontrast CT scan obtained which showed a kidney stone in the urinary bladder and mild hydronephrosis most likely related to the recently passed stone. Her urine showed signs of infection but she did not have signs of of septicemia or acute kidney injury so she was discharged home. Patient states that her pharmacy is closed on Sundays and she cannot fill her medications and that this evening the pain returned and was not responding to [id number] medication so therefore she presents for repeat evaluation. [facility] Medical History Acute encephalopathy Alcohol dependence Alcohol use Blackout BPPV (benign paroxysmal positional vertigo) Cardiology follow-up encounter Depression Enlarged thyroid High cholesterol History of CVA (cerebrovascular accident) (2009) History of echocardiogram History of skin cancer Hyperlipidemia Kidney stones Nicotine dependence Pancreatitis, acute Pneumothorax, right (12/2018) Post-menopausal Skin cancer Smoker Stage 2 moderate COPD by GOLD classification Stroke/cerebrovascular accident Wears glasses Home Medications aspirin 81 mg tablet,delayed release 81 mg PO DAILY heart health 03/26/16 [History Last Taken 09/07/22] multivitamin,sn-vrsq-vpomignd 27 mg-0.4 mg tablet 1 tab PO DAILYCM SUPPLEMENT 12/14/18 [History Last Taken 08/14/20] atorvastatin 40 mg tablet 40 mg PO QHS CHOLESTEROL 06/17/20 [History Last Taken 09/07/22] cholecalciferol (vitamin D3) 25 mcg (1,000 unit) capsule 25 mcg PO DAILY SUPPLEMENT 06/17/20 [History Last Taken 09/07/22] duloxetine 60 mg capsule,delayed release 60 mg PO BID DEPRESSION 06/17/20 [History Last Taken 09/07/22] docusate sodium 100 mg capsule (Colace) 100 mg PO BID #20 caps 09/07/22 [Rx Last Taken Unknown] oxycodone-acetaminophen 5 mg-325 mg tablet (Endocet) 1 tab PO Q6H PRN pain 7 days #14 tabs 09/07/22 [Rx Last Taken Unknown] ondansetron 4 mg disintegrating tablet 4 mg PO Q8H PRN PRN Nausea #10 tabs 09/18/22 [Rx Last Taken Unknown] sulfamethoxazole 800 mg-trimethoprim 160 mg tablet 1 tab PO BID #6 TABLETS 09/18/22 [Rx Last Taken Unknown] Allergy/AdvReac Type Severity Reaction Status Date / Time atropine [From Lomotil] Allergy Other Verified 09/18/22 22:24 codeine Allergy Shortness Verified 09/18/22 22:24 of breath diphenoxylate [From Lomotil] Allergy Other Verified 09/18/22 22:24 latex AdvReac Rash Verified 09/18/22 22:24 Family History Sister Breast cancer Surgical History History of appendectomy History of left breast biopsy (08/2017) Hx of dilation and curettage Hx of hemorrhoidectomy Social History Smoking Status: Current every day smoker tobacco type: cigarettes Tobacco: How many years used: 50 Electronic Cigarette Use: not used second hand exposure: Yes alcohol intake: former year quit: 2017 substance use type: does not use ROS ROS ED Constitutional Constitutional ED: Denies chills or fever(s) ENT ENT ED: Denies sore throat Cardiovascular Cardiovascular: Denies chest pain Respiratory/Chest Respiratory/Chest: Denies cough or dyspnea Gastrointestinal Gastrointestinal: Reports abdominal pain, nausea and vomiting; Denies diarrhea Genitourinary Genitourinary ED: Reports other Details: Positive left flank pain ; Denies dysuria Musculoskeletal Musculoskeletal: Reports back pain; Denies myalgias Integumentary Denies rash Neurologic Neurologic: Denies headache(s) Hematologic/Lymphatic Hematologic/Lymphatic: Denies easy bleeding or easy bruising EXAM Physical Exam Const Vital Signs: 09/18/22 22:21 09/19/22 00:04 09/19/22 00:15 Temperature 99.2 F H Temperature Source Temporal Pulse Rate 110 H 101 H Respiratory Rate 16 15 Blood Pressure 91/76 110/54 L Blood Pressure Mean 81 72 Pulse Ox 94 92 86 Oxygen Delivery Method Room Air Room Air Room Air Oxygen Flow Rate (L/min) 09/19/22 00:20 09/19/22 01:26 Temperature Temperature Source Pulse Rate 91 96 Respiratory Rate 15 15 Blood Pressure 113/52 L 113/57 L Blood Pressure Mean 72 75 Pulse Ox 94 91 Oxygen Delivery Method Nasal Cannula Oxygen Flow Rate (L/min) 2 Positive well nourished and well developed General Appearance ED: well developed HEENT Reports dry mucous membranes Mouth ED: Yes dry mucous membranes Mouth: dry mucous membranes Eyes PERRL and EOMs intact bilaterally Neck supple Resp normal respiratory effort and clear to auscultation bilaterally Cardio regular rhythm Rate: tachycardic and other Other Details: Radial pulses are plus 2 out of 4 bilaterally are equal and symmetric GI non-distended GI Narrative: Patient has surgical scars across her right-sided abdomen that are clean dry and intact without secondary changes to suggest infection. There is pain with palpation along the left lateral abdomen and left flank without voluntary guarding or rigidity. No pulsatile mass or fluid wave Auscultation: normoactive bowel sounds Palpation: soft Back/Spine Back/Spine Narrative: Positive left CVA pain Extremity normal to inspection Neuro oriented x3 and CN's II-XII intact bilaterally Sensorium / Orientation: alert Psych mental status grossly normal Skin Skin Narrative: Soft tissue changes to the right side of the abdomen as documented above consistent with her recent surgical procedure MDM MDM MDM Narrative Medical decision making narrative: Patient presented to the ER afebrile but was writhing in the bed in acute pain. Her recent blood work urine sample and CT scan were reviewed. At this time as the CAT scan showed no further stones within the kidney and the previous stone was in the bladder I did not feel this was the cause of her repeat pain. Therefore I also felt no need for repeat CT scan. As the patient's recent urine sample showed infection I did have concern for progressing to pyelonephritis and elected to repeat blood work. Patient's white count has elevated from 15-21.2 she now has a left shift with increased to absolute neutrophil count but her lactic acid is normal. Kidney function remains normal as well. Secondary to this elevation to her white count blood cultures were obtained and she was started on Rocephin. As patient's now requiring morphine and fentanyl for moderate pain control and it appears she is having development of systemic infection I do not feel to safe for her to return home. Therefore the case was discussed with medicine on-call and they do agree with this and patient will be admitted to the hospital for further care. Lab Data Attestation: I reviewed the patient's lab results. Labs: Laboratory Results - last 24 hr 09/18/22 09/18/22 09/18/22 22:55 22:55 23:40 WBC 21.2 H RBC 3.87 L Hgb 11.3 L Hct 34.5 L MCV 89.1 MCH 29.2 MCHC 32.8 RDW Std Deviation 38.5 RDW Coeff of Kelsie 12.0 Plt Count 288 MPV 8.9 Immature Gran % (Auto) 0.600 Neut % (Auto) 87.9 H Lymph % (Auto) 3.9 L [place] % (Auto) 7.3 Eos % (Auto) 0.1 Baso % (Auto) 0.2 Absolute Neuts (auto) 18.7 H Absolute Lymphs (auto) 0.83 Nucleated RBC % 0 Differential Comment SCANNED Diff Path Review May foll Sodium 140 Potassium 3.7 Chloride 109 H Carbon Dioxide 23.0 Anion Gap 8 BUN 14 Creatinine 0.92 Estim Creat Clear Calc 47.74 Est GFR (MDRD) Af Amer 77 Est GFR (MDRD) Non-Af 64 BUN/Creatinine Ratio 15.2 Glucose 122 H Lactic Acid 1.5 Calcium 8.5 Urine Color Urine Clarity Urine pH Ur Specific [place] Urine Protein Urine Glucose (UA) Urine Ketones Urine Occult Blood Urine Nitrite Urine Bilirubin Urine Urobilinogen Ur Leukocyte Esterase Urine RBC Urine WBC Ur Squamous Epith Cells Urine Bacteria Urine Mucus 09/18/22 23:40 WBC RBC Hgb Hct MCV MCH MCHC RDW Std Deviation RDW Coeff of Kelsie Plt Count MPV Immature Gran % (Auto) Neut % (Auto) Lymph % (Auto) [place] % (Auto) Eos % (Auto) Baso % (Auto) Absolute Neuts (auto) Absolute Lymphs (auto) Nucleated RBC % Differential Comment Diff Path Review Sodium Potassium Chloride Carbon Dioxide Anion Gap BUN Creatinine Estim Creat Clear Calc Est GFR (MDRD) Af Amer Est GFR (MDRD) Non-Af BUN/Creatinine Ratio Glucose Lactic Acid Calcium Urine Color Yellow Urine Clarity Clear Urine pH 6.0 Ur Specific [place] 1.010 Urine Protein 30 H Urine Glucose (UA) Normal Urine Ketones Negative Urine Occult Blood 250 H Urine Nitrite Negative Urine Bilirubin Negative Urine Urobilinogen Normal Ur Leukocyte Esterase 100 H Urine RBC 0-5 SEEN Urine WBC 5-10 SEEN Ur Squamous Epith Cells Not Reportable Urine Bacteria 1+ Urine Mucus 0 SEEN Discharge Plan Dx/Rx/DC Orders Clinical Impression: Acute pyelonephritis, Hydronephrosis, Intractable abdominal pain Disposition Disposition: Acute Care [facility]
[2022-09-19] MEDS: 0.9% Normal Saline 1,000 ML 999 ML IV (03:27)
--- NOTE | 2022-09-19 04:29 | NURSING ---
pt had 3 COVID vaccinations, pt does not know dates of administration
[2022-09-19] MEDS: 0.9% Saline Lock 10 ML Syringe IV ×2 (04:43→19:55)
[2022-09-19] MEDS: 0.9% Normal Saline 1,000 ML 75 ML IV (04:43)
[2022-09-19 06:40] LABS: Absolute Lymphocyte Count 2.55 X10^3/uL (0.83-4.51); Absolute Neutrophil Count 12.5 X10^3/uL (2.0-7.7); Basophil# 0.02 X10^3/uL; Basophil% 0.1 % (0-1); Eosinophil# 0.04 X10^3/uL; Eosinophils% 0.2 % (0-5); Hematocrit 30.2 % (37-47); Hemoglobin 9.8 g/dL (12.0-15.0); Lymphocyte # 2.55 X10^3/ul (0.83-4.51); Lymphocyte % 15.5 % (19-41); Mean Corp Hgb Conc 32.5 g/dL (32-36); Mean Corpuscular Hgb 29.3 pg (27.0-32.0); Mean Corpuscular Volume 90.1 fL (81-99); Monocyte# 1.21 X10^3/uL; Monocyte% 7.4 % (0-10); NRBC Flagged by Analyzer 0 % (0-5); Neutrophil # 12.51 X10^3/uL (2.7-7.7); Neutrophil % 76.2 % (47-70); Platelet Count 248 K/mm3 (150-450); RBC Distribution Width CV 12.1 % (11.6-14.6); RBC Distribution Width SD 39.7 fl (35.1-43.9); Red Blood Count 3.35 M/mm3 (4.2-5.4); White Blood Count 16.4 K/mm3 (4.4-11.0)
[2022-09-19 07:06] LABS: Anion Gap 5 (5-15); BUN 12 mg/dL (7-18); BUN/Creat Ratio 15.6 RATIO (10-20); Calcium,Total 7.6 mg/dL (8.5-10.1); Chloride 112 mmol/L (98-107); Creatinine, Serum 0.77 mg/dL (0.55-1.02); EST Glomerular Filtration Rate 79 mL/min (>60); Est Glom Filt Rate - Afr Amer 95 mL/min (>60); Estimated Creatinine Clearance 43.92 ml/min; Glucose 103 mg/dL (74-106); Sodium Level 142 mmol/L (136-145)
[2022-09-19] MEDS: Ceftriaxone 1 GM/50 ML BAG IV (10:06)
[2022-09-19] MEDS: Ketorolac 15 MG/ML Vial IV ×2 (10:14→19:55)
[2022-09-19] MEDS: Aspirin E.C. 81 MG Tablet PO (10:15)
[2022-09-19] MEDS: DULoxetine Hcl 60 MG Capsule PO ×2 (10:15→19:56)
[2022-09-19] MEDS: Docusate Sodium 100 MG Capsule PO ×2 (10:15→19:56)
[2022-09-19] MEDS: Cholecalciferol (VIT D3) 25 MCG TABLET (1,000 UNITS) PO (10:15)
--- NOTE | 2022-09-19 12:07 | CON.PCM.UR_ITS ---
Assessment & Plan Assessment/Plan (1) Intractable abdominal pain: (2) Acute pyelonephritis: (3) Left ureteral calculus: PLAN: Patient was admitted for a very small stone in the distal left ureter on CT scan and looks like it almost in the bladder I think she is very likely can a half to pass the stone on her own and I do not anticipate she can need any intervention from urology for this kidney stone. I spoke and told the patient t his today I would probably monitor the patient once the pain is pain-free off pain medication and she looks stable she go home but for now we will should monitor make sure she has passed a stone if she fails to pass a stone spontaneously then I can always take her to surgery place a stent will see her tomorrow for evaluation. HPI Consult Data Date of Consult: 09/19/22 HPI Narrative Reason for Consultation: Left kidney stone HPI Narrative: GRISELDA AVILA, is a 67 F who presents to the hospital with severe left flank pain she has a 3 mm stone in the distal left ureter seen on CT scan and some mild hydroureteronephrosis and hydronephrosis of the left kidney she was admitted for severe pain and elevated white blood count suspected pyelonephritis. She reports that the pain is much better on the left side. Of note she just recently had a right partial nephrectomy for renal cell carcinoma on the right side but I am seeing her in consultation regarding her left kidney stone separate new problem. [facility] Medical History Acute encephalopathy Alcohol dependence Alcohol use Blackout BPPV (benign paroxysmal positional vertigo) Cardiology follow-up encounter Depression Enlarged thyroid High cholesterol History of CVA (cerebrovascular accident) (2009) History of echocardiogram History of skin cancer Hyperlipidemia Kidney stones Nicotine dependence Pancreatitis, acute Pneumothorax, right (12/2018) Post-menopausal Skin cancer Smoker Stage 2 moderate COPD by GOLD classification Stroke/cerebrovascular accident Wears glasses Home Medications aspirin 81 mg tablet,delayed release 81 mg PO DAILY heart health 03/26/16 [History Last Taken 09/07/22] multivitamin,os-suhf-goggdiqe 27 mg-0.4 mg tablet 1 tab PO DAILYCM SUPPLEMENT 12/14/18 [History Last Taken 08/14/20] atorvastatin 40 mg tablet 40 mg PO QHS CHOLESTEROL 06/17/20 [History Last Taken 02/01/23] cholecalciferol (vitamin D3) 25 mcg (1,000 unit) capsule 25 mcg PO DAILY SUPPLEMENT 06/17/20 [History Last Taken 09/07/22] duloxetine 60 mg capsule,delayed release 60 mg PO BID DEPRESSION 06/17/20 [H istory Last Taken 09/07/22] docusate sodium 100 mg capsule (Colace) 100 mg PO BID #20 caps 09/07/22 [Rx Last Taken Unknown] oxycodone-acetaminophen 5 mg-325 mg tablet (Endocet) 1 tab PO Q6H PRN pain 7 days #14 tabs 09/07/22 [Rx Last Taken Unknown] ondansetron 4 mg disintegrating tablet 4 mg PO Q8H PRN PRN Nausea #10 tabs 09/18/22 [Rx Last Taken Unknown] sulfamethoxazole 800 mg-trimethoprim 160 mg tablet 1 tab PO BID #6 TABLETS 09/18/22 [Rx Last Taken Unknown] Allergy/AdvReac Type Severity Reaction Status Date / Time atropine [From Lomotil] Allergy Other Verified 09/18/22 22:24 codeine Allergy Shortness Verified 09/18/22 22:24 of breath diphenoxylate [From Lomotil] Allergy Other Verified 09/18/22 22:24 latex AdvReac Rash Verified 09/18/22 22:24 Family History Sister Breast cancer Surgical History History of appendectomy History of left breast biopsy (08/2017) Hx of dilation and curettage Hx of hemorrhoidectomy Social History Smoking Status: Current every day smoker tobacco type: cigarettes Tobacco: How many years used: 50 Electronic Cigarette Use: not used second hand exposure: Yes alcohol intake: former year quit: 2017 substance use type: does not use Physical Exam Const alert and oriented x3 General Appearance: cooperative HEENT normocephalic, head/scalp atraumatic, EAC's normal and TM's normal bilaterally Eyes PERRL and EOMs intact bilaterally Pupil: sluggish Neck no lymphadenopathy, supple and no JVD General: trachea midline Lymph Lymphatic: no lymphadenopathy noted, lymphedema and lymphadenopathy Resp normal respiratory effort, normal air movement and clear to auscultation bilaterally Cardio regular rate, regular rhythm and peripheral pulses 2+ throughout GI soft to palpation, non-tender and non-distended Extremity normal capillary refill and no clubbing, cyanosis or edema General Extremity: no tenderness to palpation of joints or extremities Skin no rashes or lesions noted General Skin Exam: turgor normal Lesions: no lesions Rashes: no rashes Neuro CN's II-XII intact bilaterally Speech: speech normal Motor Exam: strength 5/5 throughout; Negative for general weakness Psych thought process normal, cooperative and affect normal Appearance: appropriate Lab / Micro Data Result Diagrams: 09/19/22 06:26 09/19/22 06:26 Labs: Laboratory Results - last 24 hr 09/18/22 22:55: WBC 21.2 H, RBC 3.87 L, Hgb 11.3 L, Hct 34.5 L, MCV 89.1, MCH 29.2, MCHC 32.8, RDW Std Deviation 38.5, RDW Coeff of Kelsie 12.0, Plt Count 288, MPV 8.9, Immature Gran % (Auto) 0.600, Neut % (Auto) 87.9 H, Lymph % (Auto) 3.9 L, [place] % (Auto) 7.3, Eos % (Auto) 0.1, Baso % (Auto) 0.2, Absolute Neuts (auto) 18.7 H, Absolute Lymphs (auto) 0.83, Nucleated RBC % 0, Differential Comment SCANNED, Diff Path Review December09/18/22 22:55: Sodium 140, Potassium 3.7, Chloride 109 H, Carbon Dioxide 23.0, Anion Gap 8, BUN 14, Creatinine 0.92, Estim Creat Clear Calc 47.74, Est GFR (MDRD) Af Amer 77, Est GFR (MDRD) Non-Af 64, BUN/Creatinine Ratio 15.2, Glucose 122 H, Calcium 8.5 09/18/22 23:40: Lactic Acid 1.5 09/18/22 23:40: Urine Color Yellow, Urine Clarity Clear, Urine pH 6.0, Ur Specific [place] 1.010, Urine Protein 30 H, Urine Glucose (UA) Normal, Urine Ketones Negative, Urine Occult Blood 250 H, Urine Nitrite Negative, Urine Bilirubin Negative, Urine Urobilinogen Normal, Ur Leukocyte Esterase 100 H, Urine RBC 0-5 SEEN, Urine WBC 5-10 SEEN, Ur Squamous Epith Cells Not Reportable, Urine Bacteria 1+, Urine Mucus 0 SEEN 09/19/22 06:26: WBC 16.4 H, RBC 3.35 L, Hgb 9.8 L, Hct 30.2 L, MCV 90.1, MCH 29.3, MCHC 32.5, RDW Std Deviation 39.7, RDW Coeff of Kelsie 12.1, Plt Count 248, MPV 9.0, Immature Gran % (Auto) 0.600, Neut % (Auto) 76.2 H, Lymph % (Auto) 15.5 L, [place] % (Auto) 7.4, Eos % (Auto) 0.2, Baso % (Auto) 0.1, Absolute Neuts (auto) 12.5 H, Absolute Lymphs (auto) 2.55, Nucleated RBC % 0 09/19/22 06:26: Sodium 142, Potassium 4.0, Chloride 112 H, Carbon Dioxide 25.0, Anion Gap 5, BUN 12, Creatinine 0.77, Estim Creat Clear Calc 43.92, Est GFR (MDRD) Af Amer 95, Est GFR (MDRD) Non-Af 79, BUN/Creatinine Ratio 15.6, Glucose 103, Calcium 7.[address] scan reviewed
[2022-09-19 12:59] LABS: Pathologist Review Reviewed
[2022-09-19] MEDS: 0.9% Normal Saline 1,000 ML 125 ML IV ×2 (15:10→22:19)
--- NOTE | 2022-09-19 18:27 | PN.HOSP_ITS ---
Reason for Visit Reason for Visit: Diagnoses Acute pyelonephritis (09/19/22) Unspecified hydronephrosis (09/19/22) Calculus of ureter (09/19/22) Unspecified abdominal pain (09/19/22) Subjective Subjective Patient was seen and examined today, I talked with urology today about her care, urology does not feel that patient needs a stent or surgery at this time. Patient appears comfortable at this time, she is on IV antibiotics and IV fluids. Objective Data Objective Data Vital Signs: Vital Signs Temp Pulse Resp BP Pulse Ox O2 Del Method O2 Flow Rate 98.0 F 75 16 95/59 L 93 Room Air 2 09/19/22 15:00 09/19/22 15:00 09/19/22 15:00 09/19/22 15:00 09/19/22 15:00 09/19/22 15:00 09/19/22 10:01 Oxygen Flow Rate (L/min) 2 Oxygen Delivery Method Room Air Weight: 62.3 kg Body Mass Index (BMI) 24.3 Intake & Output: Intake and Output for Last 24 Hours 09/17/22 09/18/22 09/19/22 23:59 23:59 23:59 Intake Total 2992.08 / 2992.08 Balance 2992.08 / 2992.08 Lab / Micro Data Result Diagrams: 09/19/22 06:26 09/19/22 06:26 Labs: Laboratory Results - last 24 hr 09/18/22 22:55: WBC 21.2 H, RBC 3.87 L, Hgb 11.3 L, Hct 34.5 L, MCV 89.1, MCH 29.2, MCHC 32.8, RDW Std Deviation 38.5, RDW Coeff of Kelsie 12.0, Plt Count 288, MPV 8.9, Immature Gran % (Auto) 0.600, Neut % (Auto) 87.9 H, Lymph % (Auto) 3.9 L, [place] % (Auto) 7.3, Eos % (Auto) 0.1, Baso % (Auto) 0.2, Absolute Neuts (auto) 18.7 H, Absolute Lymphs (auto) 0.83, Nucleated RBC % 0, Differential Comment SCANNED, Diff Path Review Reviewed 09/18/22 22:55: Sodium 140, Potassium 3.7, Chloride 109 H, Carbon Dioxide 23.0, Anion Gap 8, BUN 14, Creatinine 0.92, Estim Creat Clear Calc 47.74, Est GFR (MDRD) Af Amer 77, Est GFR (MDRD) Non-Af 64, BUN/Creatinine Ratio 15.2, Glucose 122 H, Calcium 8.5 09/18/22 23:40: Lactic Acid 1.5 09/18/22 23:40: Urine Color Yellow, Urine Clarity Clear, Urine pH 6.0, Ur Specific [place] 1.010, Urine Protein 30 H, Urine Glucose (UA) Normal, Urine Ketones Negative, Urine Occult Blood 250 H, Urine Nitrite Negative, Urine Bilirubin Negative, Urine Urobilinogen Normal, Ur Leukocyte Esterase 100 H, Urine RBC 0-5 SEEN, Urine WBC 5-10 SEEN, Ur Squamous Epith Cells Not Reportable, Urine Bacteria 1+, Urine Mucus 0 SEEN 09/19/22 06:26: WBC 16.4 H, RBC 3.35 L, Hgb 9.8 L, Hct 30.2 L, MCV 90.1, MCH 29.3, MCHC 32.5, RDW Std Deviation 39.7, RDW Coeff of Kelsie 12.1, Plt Count 248, M PV 9.0, Immature Gran % (Auto) 0.600, Neut % (Auto) 76.2 H, Lymph % (Auto) 15.5 L, [place] % (Auto) 7.4, Eos % (Auto) 0.2, Baso % (Auto) 0.1, Absolute Neuts (auto) 12.5 H, Absolute Lymphs (auto) 2.55, Nucleated RBC % 0 09/19/22 06:26: Sodium 142, Potassium 4.0, Chloride 112 H, Carbon Dioxide 25.0, Anion Gap 5, BUN 12, Creatinine 0.77, Estim Creat Clear Calc 43.92, Est GFR (MDRD) Af Amer 95, Est GFR (MDRD) Non-Af 79, BUN/Creatinine Ratio 15.6, Glucose 103, Calcium 7.6 L Physical Exam Const alert, oriented x3, no apparent distress and healthy appearing General Appearance: cooperative, well kempt and well developed Orientation / Consciousness: awake, oriented to person, oriented to place and oriented to time HEENT normocephalic and moist oral mucous membranes Eyes PERRL, EOMs intact bilaterally and conjunctivae normal Neck supple, no JVD and thyroid normal General: trachea midline Resp normal respiratory effort, no retractions, no use of accessory muscles and clear to auscultation bilaterally Auscultation: Negative for rales, rhonchi or wheezes Cardio regular rate, regular rhythm, S1 normal heart sound, S2 normal heart sound, no murmurs, no rub and no gallops GI normal to inspection, nondistended, normoactive bowel sounds, soft to palpation, non-tender and non-distended Extremity no clubbing, cyanosis or edema Skin no rashes or lesions noted General Skin Exam: no breakdown Neuro oriented x3, CN's II-XII intact bilaterally, no focal motor deficits and no sensory deficits noted Sensorium / Orientation: awake and alert Speech: speech normal Psych affect normal Assessment & Plan Assessment/Plan (1) Acute pyelonephritis: PLAN: Plan 1. Acute pyelonephritis-patient will remain on IV antibiotics at this time as well as IV fluids, labs will be rechecked tomorrow #2 left ureteral calculus-urology does not feel the patient needs a stent or removal of this calculus, urology feels that it can be passed by the patient without intervention. #3 chronic depression-patient is on Cymbalta #4 recent right partial kidney resection due to renal carcinoma-patient was seen by urology today, she appears stable Total clinical time spent by myself addressing the patient's medical issues, reviewing the data, and collaborating with patient's care team: 35 minutes
[2022-09-19] MEDS: Atorvastatin Calcium 40 MG Tablet PO (19:56)
[2022-09-20] VITALS (10 sets, daily range): BP systolic 102–135; BP diastolic 42–67; PULSE 73–93; RESP 16–20; TEMP 36.6–36.8; O2SAT 94–98
[2022-09-20] MEDS: 0.9% Saline Lock 10 ML Syringe IV ×2 (02:41→04:51)
[2022-09-20] MEDS: Ondansetron 4 MG/2 ML Vial IV (02:41)
[2022-09-20] MEDS: Acetaminophen 325 MG Tablet 650 MG PO (04:50)
[2022-09-20] MEDS: 0.9% Normal Saline 1,000 ML 125 ML IV (04:51)
[2022-09-20] MEDS: Ketorolac 15 MG/ML Vial IV (04:51)
[2022-09-20] MEDS: Ceftriaxone 1 GM/50 ML BAG IV (10:24)
[2022-09-20] MEDS: Docusate Sodium 100 MG Capsule PO (10:26)
[2022-09-20] MEDS: DULoxetine Hcl 60 MG Capsule PO (10:26)
[2022-09-20] MEDS: Aspirin E.C. 81 MG Tablet PO (10:26)
[2022-09-20] MEDS: Cholecalciferol (VIT D3) 25 MCG TABLET (1,000 UNITS) PO (10:26)
--- NOTE | 2022-09-20 14:49 | CASEMGMT ---
NIK MONK chart review: Patient was admitted 09/07-09/08/22 for lap robotic right partial nephrectomy. See NIK MONK assessment from09/08/22. Patient was discharge to home with follow-up plans in place. Patient returned 09/18 to ED for flank pain and CT noted 2.4 mm stone, patient was discharge home from ED with pain medication. Patient's pharmacy was closed and unable to fill prescription. Patient returned 09/19/22 for continued flank pain. Patient was admitted for acute pyelonephritis, urology consulted and urology stated stone should pass on its own. RN ALESHIA in to see patient. Patient states she was to have follow-up with Dr. Mckeon today. Patient denies needs at this time. CM will continue to follow this patient and plan for a safe discharge.
[2022-09-20 14:52] LABS: Absolute Lymphocyte Count 1.61 X10^3/uL (0.83-4.51); Absolute Neutrophil Count 7.5 X10^3/uL (2.0-7.7); Basophil# 0.03 X10^3/uL; Basophil% 0.3 % (0-1); Eosinophil# 0.15 X10^3/uL; Eosinophils% 1.5 % (0-5); Hematocrit 31.9 % (37-47); Hemoglobin 10.2 g/dL (12.0-15.0); Lymphocyte # 1.61 X10^3/ul (0.83-4.51); Lymphocyte % 15.8 % (19-41); Mean Corpuscular Hgb 29.1 pg (27.0-32.0); Mean Corpuscular Volume 91.1 fL (81-99); Monocyte# 0.87 X10^3/uL; Monocyte% 8.5 % (0-10); NRBC Flagged by Analyzer 0 % (0-5); Neutrophil # 7.47 X10^3/uL (2.7-7.7); Neutrophil % 73.4 % (47-70); Platelet Count 234 K/mm3 (150-450); RBC Distribution Width CV 12.1 % (11.6-14.6); RBC Distribution Width SD 40.5 fl (35.1-43.9); White Blood Count 10.2 K/mm3 (4.4-11.0)
--- NOTE | 2022-09-20 15:38 | DCINST_ITS ---
Discharge Instructions Diet Discharge Diet: No restrictions Activity Discharge Activity: Return to Normal Activity Weight Bearing Status: Full weight bearing Follow Up Care Test Results: Test results from this visit will be discussed in further detail at your follow- up appointment, if applicable. Discharge Plan Admission Admit Date/Time: 09/19/22 02:44 Primary Reason for Your Visit: pyelonephritis Attending Provider: Dennis Keyes Primary Care Provider: Johnie Valdivia Consulting Providers: Oswaldo Kelley ; Angel Luis Mckeon Discharge Orders/Prescriptions Prescriptions: New ciprofloxacin HCl [Cipro] 500 mg tablet 500 mg PO BID Qty: 10 0RF Rx Instructions: start on 09/21/22 Continued duloxetine 60 mg capsule,delayed release(DR/EC) 60 mg PO BID atorvastatin 40 mg tablet 40 mg PO QHS cholecalciferol (vitamin D3) 25 mcg (1,000 unit) capsule 25 mcg PO DAILY aspirin 81 MG tablet,delayed release (DR/EC) 81 mg PO DAILY Hold Instructions: Resume on 09/21/22. Label Comments: [employer],LAST DOSE 08/30/22 multivitamin,vw-zeqn-wwebpyzc 1 TABLET tablet 1 tab PO DAILYCM docusate sodium [Colace] 100 mg capsule 100 mg PO BID Qty: 20 0RF oxycodone-acetaminophen [Endocet] 5-325 mg tablet 1 tab PO Q6H PRN (Reason: pain) 7 Days Qty: 14 0RF ondansetron 4 mg tablet,disintegrating 4 mg PO Q8H PRN PRN (Reason: Nausea) Qty: 10 0RF Discontinued sulfamethoxazole-trimethoprim [sulfamethoxazole-trimethoprim] 800-160 mg tablet 1 tab PO BID Qty: 6 0RF Referrals / Follow Up: Johnie Valdivia MD [Primary Care Provider] - See Referral Note (at your scheduled time) Angel Luis Mckeon MD [Med Staff - Active Staff] - See Referral Note (in two weeks-call for appointment) Disposition Disposition (needs filled in before D/C Order can be placed): Home, Self Care
--- NOTE | 2022-09-20 15:42 | DS.PCM_ITS ---
Providers Date of Admission: 09/19/22 Date of Discharge: 09/20/22 Primary Care Physician: Dr. Johnie Valdivia MD Consultations 09/19/22 04:20 Consult: Urology Routine Consulting Provider: Angel Luis Mckeon Reason for Consult: Pyelonephritis. Hydronephrosis. EMERGENT Consult: No MD Notified: Yes Date Notified: 09/19/22 Time Notified: 07:43 Method of Notification: Verbal Reason For Visit: ACUTE PYELONEPHRITIS Diagnosis Discharge Diagnosis (1) Acute pyelonephritis: Status: Resolved Code(s): N10 - Acute pyelonephritis Plan 1. Acute pyelonephritis from E. coli-patient will remain on IV antibiotics at this time as well as IV fluids, labs will be rechecked tomorrow #2 left ureteral calculus-urology does not feel the patient needs a stent or removal of this calculus, urology feels that it can be passed by the patient without intervention. #3 chronic depression-patient is on Cymbalta #4 recent right partial kidney resection due to renal carcinoma-patient was seen by urology today, she appears stable Total clinical time spent by myself addressing the patient's medical issues, reviewing the data, and collaborating with patient's care team: 35 minutes Medications at Discharge Home Medications aspirin 81 mg tablet,delayed release 81 mg PO DAILY heart health 03/26/16 multivitamin,[id number]-kfxq-fnxqkvhb 27 mg-0.4 mg tablet 1 tab PO DAILYCM SUPPLEMENT 12/14/18 atorvastatin 40 mg tablet 40 mg PO QHS CHOLESTEROL 06/17/20 cholecalciferol (vitamin D3) 25 mcg (1,000 unit) capsule 25 mcg PO DAILY SUPPLEMENT 06/17/20 duloxetine 60 mg capsule,delayed release 60 mg PO BID DEPRESSION 06/17/20 docusate sodium 100 mg capsule (Colace) 100 mg PO BID #20 caps 09/07/22 oxycodone-acetaminophen 5 mg-325 mg tablet (Endocet) 1 tab PO Q6H PRN pain 7 days #14 tabs 09/07/22 ondansetron 4 mg disintegrating tablet 4 mg PO Q8H PRN PRN Nausea #10 tabs 09/18/22 ciprofloxacin HCl 500 mg tablet (Cipro) 500 mg PO BID #10 tabs 09/20/22 Hospital Course Operations None Procedures None Summary of Care Provided Minutes Spent on Discharge: 31 Hospital Course: This 67-year-old white female was seen in the emergency room at [facility] with complaints of left-sided flank pain. She had been seen in the emergency room on 09/18/2022 with same complaints, at that time a CT scan was obtained which showed a kidney stone in the urinary bladder and mild hydronephrosis. Patient was then discharged home, patient returned to the ER for evaluation complaining of increased left sided pain. Labs obtained showed an elevated white blood cell count at 21.2, patient's creatinine and BUN were unremarkable, lactic acid was 1.5. Patient's CAT scan of the pelvis and abdomen was not repeated, she was admitted to PCU for acute pyelonephritis placed on IV antibiotics, urology was consulted and they felt that the patient had a distal left ureter stone that was almost in the bladder and they did not feel it needed intervention. Patient's pain resolved. Patient's urine culture showed E. coli. On 09/20/2022, patient was seen and examined: On examination she appeared in good health and spirits, she does not appear to be in any distress. Vital signs as documented. Skin warm and dry and without overt rashes. Neck without JVD, thyroid appears normal, trachea is midline, neck is supple. Lungs clear, normal air movement was noted. Heart exam notable for regular rhythm, normal sounds and absence of murmurs, rubs or gallops. Abdomen unremarkable and without evidence of organomegaly, masses, or abdominal aortic enlargement, bowel sounds are present in all 4 quadrants, no abdominal tenderness was noted. Extremities nonedematous, no cyanosis was noted, no clubbing was noted. Neuro: Cranial nerves II through XII are grossly intact, no focal motor deficits were noted, sensation to light touch and pinprick is intact, motor exam 5/5 throughout. Psych: Patient is alert and oriented x3, she does not appear anxious or depr essed, she does not appear agitated. Patient was felt to be in stable condition for discharge home on 09/20/2022. Weight / BMI Weight Weight: 62.3 kg Body Mass Index (BMI) 24.3 ABG / Lab / Microbiology Data Result Diagrams: 09/20/22 14:40 09/19/22 06:26 Laboratory: Laboratory Results - last 24 hr 09/20/22 14:40: WBC 10.2, RBC 3.50 L, Hgb 10.2 L, Hct 31.9 L, MCV 91.1, MCH 29.1, MCHC 32.0, RDW Std Deviation 40.5, RDW Coeff of Kelsie 12.1, Plt Count 234, MPV 9.0, Immature Gran % (Auto) 0.500, Neut % (Auto) 73.4 H, Lymph % (Auto) 15.8 L, [place] % (Auto) 8.5, Eos % (Auto) 1.5, Baso % (Auto) 0.3, Absolute Neuts (auto) 7.5, Absolute Lymphs (auto) 1.61, Nucleated RBC % 0 D/C Instructions Discharge Diet: No restrictions Weight Bearing Status: Full weight bearing Meaningful Use Info Meaningful Use Diagnoses (Choose all that apply): None applicable Discharge Plan Admission Admit Date/Time: 09/19/22 02:44 Primary Reason for Your Visit: pyelonephritis Attending Provider: Dennis Keyes Primary Care Provider: Johnie Valdivia Consulting Providers: Oswaldo Kelley ; Angel Luis Mckeon Discharge Orders/Prescriptions Prescriptions: New ciprofloxacin HCl [Cipro] 500 mg tablet 500 mg PO BID Qty: 10 0RF Rx Instructions: start on 09/21/22 Continued duloxetine 60 mg capsule,delayed release(DR/EC) 60 mg PO BID atorvastatin 40 mg tablet 40 mg PO QHS cholecalciferol (vitamin D3) 25 mcg (1,000 unit) capsule 25 mcg PO DAILY aspirin 81 MG tablet,delayed release (DR/EC) 81 mg PO DAILY Hold Instructions: Resume on 09/21/22. Label Comments: heart XYZE,LAST DOSE 08/30/22 multivitamin,gs-npyr-rhymkbhp 1 TABLET tablet 1 tab PO DAILYCM docusate sodium [Colace] 100 mg capsule 100 mg PO BID Qty: 20 0RF oxycodone-acetaminophen [Endocet] 5-325 mg tablet 1 tab PO Q6H PRN (Reason: pain) 7 Days Qty: 14 0RF ondansetron 4 mg tablet,disintegrating 4 mg PO Q8H PRN PRN (Reason: Nausea) Qty: 10 0RF Discontinued sulfamethoxazole-trimethoprim [sulfamethoxazole-trimethoprim] 800-160 mg tablet 1 tab PO BID Qty: 6 0RF Referrals / Follow Up: Johnie Valdivia MD [Primary Care Provider] - See Referral Note (at your scheduled time) Angel Luis Mckeon MD [Med Staff - Active Staff] - See Referral Note (in two weeks-call for appointment) Disposition Disposition (needs filled in before D/C Order can be placed): Home, Self Care Charges/Coding Visit Charges Inpatient E&M: 45964 Disch Hosp >30min
== END 2022-09-20 16:31 | disposition home or self-care (01) | DRG 690 ==
LOC: ED 09-19 03:10 → MS3 09-19 03:21 → PCU 09-19 03:33
PROVIDERS: Admitting Provider Hospitalist; Emergency Provider Emergency Medicine; PCP Family Medicine; Visit Provider Internal Medicine
DX: N13.6 Pyonephrosis (principal); B96.20 Unspecified Escherichia coli [E. coli] as the cause of diseases classified elsewhere; F10.21 Alcohol dependence, in remission; E78.00 Pure hypercholesterolemia, unspecified; F17.210 Nicotine dependence, cigarettes, uncomplicated; F32.A Depression, unspecified; Z90.5 Acquired absence of kidney; Z79.82 Long term (current) use of aspirin; Z79.899 Other long term (current) drug therapy; Z85.528 Personal history of other malignant neoplasm of kidney; Z86.73 Personal history of transient ischemic attack (TIA), and cerebral infarction without residual deficits
CPT/HCPCS: 36415; 74176; 80048; 81001; 83605; 85025; 87040; 87077; 87086; 87088; 87186; 94668; 96374; 96375; 99252; 99283; J7030; A4216; G0463; J2405

== ENCOUNTER → 2025-05-27 | Outpatient (CLI) | payer MEDICARE, SELFPAY | END | disposition home or self-care (01) | LOC: LABSPEC 15:53 | PROVIDERS: PCP Family Medicine; Referring Provider Urology; Visit Provider Urology | DX: N39.0 Urinary tract infection, site not specified (principal) | CPT/HCPCS: 87077; 87086; 87088; 87186 ==

== ENCOUNTER → 2025-06-10 | Outpatient (CLI) | payer MEDICARE, SELFPAY ==
--- NOTE | 2025-06-10 17:55 | CT_ITS ---
PROCEDURE: CT/Abdomen/Pelvis W IV Cont ONLY
[2025-06-10 18:20] LABS: CREATININE FINGERSTICK < 1.0 mg/dL (0.55-1.02); EGFR FINGERSTICK > 60.0000 mL/min (>60)
== END | disposition home or self-care (01) ==
LOC: CT 17:54
PROVIDERS: PCP Family Medicine; Referring Provider Urology; Visit Provider Urology
DX: C64.1 Malignant neoplasm of right kidney, except renal pelvis (principal)
CPT/HCPCS: 74177; Q9967